=== PATIENT | male | born 1955 | race Caucasian/White ===

== ENCOUNTER 2016-12-12 06:09 | Day surgery (SDC) | payer BC ==
[2016-12-06 08:21] VITALS: BMI 26.9
[~2016-12-12 06:09] MED LIST: DEXAMETHASONE SOD PHOSPHATE 10 MG/ML 1 ML VIAL IV ONE; DEXAMETHASONE SOD PHOSPHATE 4 MG/ML 1 ML VIAL IV ONE; FAMOTIDINE 20 MG/2 ML VIAL IV ONE; HYDROmorphone 1 MG/ML 1 ML SYRINGE IVP PRN; LACTATED RINGERS 1,000 ML IV SCH; LIDOCAINE 1% 20 ML VIAL (10MG/ML) FOR IV START INTRADERMA PRN; MIDAZOLAM 2 MG/2 ML VIAL IV PRN; ONDANSETRON 4 MG/2 ML VIAL IVP ONE; SCOPOLAMINE 1.5MG/72HR PATCH TRANSDERM ONE; ceFAZolin 2 GM in SODIUM CHLORIDE 0.9% 100 ML IVPB ONE
[2016-12-12] MEDS: OXYMETAZOLINE 0.05% NASL SPRAY 1 SPRAY BOTTLE NASAL ONE ×5 (06:43→07:08)
[2016-12-12] MEDS ORDERED: fentaNYL (PF) 50 MCG/ML 2 ML AMP ONE (07:30)
[2016-12-12] MEDS ORDERED: MIDAZOLAM 2 MG/2 ML VIAL ONE (07:30)
[2016-12-12] MEDS ORDERED: PHENYLEPHRINE-0.9% NACL SYG 1 MG/10 ML SYRINGE ONE (07:30)
[2016-12-12] MEDS ORDERED: SUCCINYLCHOLINE CHLORIDE 100 MG/5 ML SYR IV ONE (07:30)
[2016-12-12] MEDS ORDERED: PROPOFOL 10 MG/ML 20 ML VIAL IV ONE (07:30)
[2016-12-12] MEDS ORDERED: LIDOCAINE 1% INJ 10MG/ML (20 ML MDV) ONE (07:30)
[2016-12-12] MEDS ORDERED: DEXAMETHASONE SOD PHOS (MDV) 100 MG/10 ML VIAL ONE (07:30)
[2016-12-12] MEDS ORDERED: FLUORESCEIN STRIPS 1 MG STRIP MISCELLANE ONE (07:37)
[2016-12-12] MEDS ORDERED: EPINEPHrine 1 MG/ML (MDV) 30 ML VIAL TOPICAL ONE (07:37)
[2016-12-12] MEDS ORDERED: BUPIVACAIN-EPI 0.5%-1:200,000 30 ML VIAL SQ ONE ×2 (07:49)
[2016-12-12] MEDS ORDERED: LIDOCAINE 2%-EPI 1:100,000 20 ML VIAL SQ ONE ×2 (07:52)
[2016-12-12] MEDS ORDERED: LACTATED RINGERS 1,000 ML IV ONE (08:52)
[2016-12-12 09:06] VITALS: TEMP 97.2
[2016-12-12 09:12] VITALS: RESP 16
--- NOTE | 2016-12-12 09:13 | P.OP ---
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 Examination in the office revealed a very large obstructive right greater cornu of the larynx which was interfering with his swallowing. No other pathology was noted. Removal of this segment of cartilage is recommended. In addition he complains of chronic sinusitis and a reexamination and therapeutic sinonasal endoscopy was recommended. Repeat throat examination was also recommended. Operative Findings: Patient had an extremely long and obstructive right greater corner of the larynx that underwent resection of the obstructive area through the throat. The patient also had some disease of the frontal sphenoid maxillary sinuses in wider openings were made with removal of diseased tissue. Patient also had some irregularity along the postcricoid space. Biopsy was performed of that area. Description of Procedure: This patient was taken to the operative room and placed in the supine position. A general inhalation anesthetic was administered the patient by mask and subsequently intubated with a cuffed endotracheal tube by the department of anesthesia with a functioning IV line in place. The patient was monitored throughout the entire case by the department of anesthesia. A tooth guard was placed and a Jako laryngoscope was placed into the patient's mouth with care to avoid any trauma to the lips teeth gums and tongue. Mouth was opened tongue was depressed and the entire [place] and hypopharynx was evaluated including the base of tongue vallecula epiglottis [place] vocal cords postcricoid space piriform sinuses lateral pharynx etc. There is a large obstructive protuberance which represented the greater corner of the larynx which was sticking into the throat. We placed a scope on a suspension and made an incision over this cartilaginous protrusion. We resected the cartilaginous protrusion through a small stab incision. The patient tolerated this well. Attention was then paid to the hypopharynx with some irregularity was noted under microscopic evaluation utilizing his sinus microscope. The biopsy the postcricoid space and all instrumentation was removed we did digitally palpate the throat. Attention was then paid to the nose were a standard anesthetization was performed. Reevaluation of the sinuses with endoscopic visualization of his 0 Mcmanus branden scope reveals some closure of the maxillary sinuses which we re-opened with a straight boss. We entered the maxillary sinuses and open them wider and we did remove diseased tissue endoscopically. We opened this with a boss. We then opened the sphenoid sinuses with up-biting boss bilaterally and remove diseased tissue bilaterally from both the bilateral sphenoid and maxillary sinuses with endoscopic visualization. We then identified the nasal frontal duct which was a bit stenotic and we opened that with a Rachel giraffes etc. we entered and explore the frontal sinuses bilaterally. We inserted xerogel bilaterally and we rehydrated xerogel was saline. The patient tolerated this well and a follow-up will be in the office in one week the patient is to contact me if any problems should arise in the interim.
[2016-12-12] MEDS ORDERED: KETOROLAC 30 MG/ML 1 ML VIAL IVP ONE ×2 (09:38→09:41)
[2016-12-12 10:05] VITALS: BP 127/75; PULSE 58
== END 2016-12-12 10:29 | disposition home or self-care (01) ==
LOC: OR 06:09
PROVIDERS: ATTEND Otolaryngology
DX: R13.10 Dysphagia, unspecified (principal); J38.6 Stenosis of larynx; Z87.891 Personal history of nicotine dependence; J32.9 Chronic sinusitis, unspecified; I10 Essential (primary) hypertension; Z79.1 Long term (current) use of non-steroidal anti-inflammatories (NSAID); Z79.899 Other long term (current) drug therapy; Z88.5 Allergy status to narcotic agent; Z88.2 Allergy status to sulfonamides; Z88.8 Allergy status to other drugs, medicaments and biological substances; Z91.02 Food additives allergy status
CPT/HCPCS: 93005; 88305; 88311; 20999; 31535; 31267; 31288; 31276; C1726; J0171; J2250; J1100 ×2; J0690; J2405; J2001; J3010; J1885; J2370; J0330; J2704

== ENCOUNTER 2017-05-22 09:28 | Day surgery (SDC) | payer BC ==
[2017-05-21 08:12] VITALS: BMI 25.6
[~2017-05-22 09:28] MED LIST changes: -DEXAMETHASONE SOD PHOSPHATE 10 MG/ML 1 ML VIAL IV ONE; -DEXAMETHASONE SOD PHOSPHATE 4 MG/ML 1 ML VIAL IV ONE; -FAMOTIDINE 20 MG/2 ML VIAL IV ONE; -HYDROmorphone 1 MG/ML 1 ML SYRINGE IVP PRN; -MIDAZOLAM 2 MG/2 ML VIAL IV PRN; -ONDANSETRON 4 MG/2 ML VIAL IVP ONE; -SCOPOLAMINE 1.5MG/72HR PATCH TRANSDERM ONE; -ceFAZolin 2 GM in SODIUM CHLORIDE 0.9% 100 ML IVPB ONE
[2017-05-22 10:38] VITALS: TEMP 97.8
[2017-05-22] MEDS ORDERED: LIDOCAINE 1% INJ 10MG/ML (20 ML MDV) ONE (11:34)
[2017-05-22] MEDS ORDERED: PROPOFOL 10 MG/ML 20 ML VIAL IV ONE (11:34)
--- NOTE | 2017-05-22 12:01 | P.PCN ---
Date of Procedure: 05/22/17 Procedure(s) Performed: Procedure: Esophagogastroduodenoscopy and biopsy. Preoperative diagnosis: Change in bowel habits and weight loss. Postoperative diagnosis: 1. Small sliding hiatal hernia with no obvious esophagitis or complicated reflux disease. 2. Mild antral gastritis. 3. Multiple biopsies obtained from the duodenum, antrum and esophagus. Preparation sedation: Was provided by anesthesia. Brief clinical history: The patient is a 62-year-old male who is scheduled for this evaluation for the above reasons. The patient has lost around 20 pounds over the last 9 months and is reporting more frequent bowel movements. He had throat surgery within the last year or 2 and was told that he probably has reflux issues. I performed his colonoscopy for screening for colon cancer back in April 2014 because of history of polyps and that showed sigmoid diverticulosis with no other pathology. Procedure: With the patient on his left lateral decubitus position and after informed consent and adequate sedation, the Olympus-GIF 160 video upper endoscope was used and was passed through the cricopharyngeus down the esophagus. GE junction was around 42-43 cm from the incisors and there was a small sliding hiatal hernia. The esophagus did not show any obvious esophagitis or complicated reflux disease. The endoscope was then passed into the stomach which was insufflated with air and inspected in detail including the retroflex view in the cardia. There was some mottling and erythema in the antrum but no ulcers or erosions. Pyloric channel, duodenal bulb, post bulbar area and descending duodenum appeared within normal limits. Because of his symptoms, I obtained biopsies from the duodenum, antrum and esophagus then the endoscope was withdrawn. The patient tolerated the procedure well. Plan: The patient was reassured. Will await pathology results and make further plans based on his course and biopsy results. He will follow up with you as planned and I will be happy to see in the office of his symptoms persist.
[2017-05-22 12:19] VITALS: BP 132/78; PULSE 57; RESP 18
== END 2017-05-22 12:33 | disposition home or self-care (01) ==
LOC: ORWHC2ENDO 09:28
DX: K29.50 Unspecified chronic gastritis without bleeding (principal); K44.9 Diaphragmatic hernia without obstruction or gangrene; Z86.010 Personal history of colon polyps; I10 Essential (primary) hypertension; E78.5 Hyperlipidemia, unspecified; M19.90 Unspecified osteoarthritis, unspecified site; K58.9 Irritable bowel syndrome, unspecified; Z79.899 Other long term (current) drug therapy; Z88.5 Allergy status to narcotic agent; Z91.02 Food additives allergy status
CPT/HCPCS: 88305; 43239; J2001; J2704

== ENCOUNTER → 2017-12-11 | Outpatient (CLI) | payer BC ==
[2017-12-11 17:35] LABS: Anion Gap 7 mmol/L; Blood Urea Nitrogen 21 mg/dL (9-20); Calcium 9.8 mg/dL (8.4-10.2); Carbon Dioxide 28 mmol/L (22-30); Chloride 105 mmol/L (98-107); Glucose 92 mg/dL (74-99); Sodium 140 mmol/L (137-145)
== END | disposition home or self-care (01) ==
LOC: LABWHC1 16:55
PROVIDERS: ATTEND Internal Medicine Interventional Cardiology
DX: I42.9 Cardiomyopathy, unspecified (principal)
CPT/HCPCS: 36415; 80048

== ENCOUNTER → 2018-05-12 | Outpatient (CLI) | payer BC | END | disposition home or self-care (01) | LOC: LABWHC1 16:55 | PROVIDERS: ATTEND Urology | DX: R97.20 Elevated prostate specific antigen [PSA] (principal) | CPT/HCPCS: 36415; 84153 ==

== ENCOUNTER 2018-06-10 08:53 | Day surgery (SDC) | payer BC, OTHER ==
[2018-06-05 10:05] VITALS: BMI 25.0
[~2018-06-10 08:53] MED LIST changes: +DEXAMETHASONE SOD PHOSPHATE 10 MG/ML 1 ML VIAL IV ONE; +HEPARIN SODIUM,PORCINE 5,000 UNIT/ML 1 ML VIAL SQ ONE; -LIDOCAINE 1% 20 ML VIAL (10MG/ML) FOR IV START INTRADERMA PRN; +MIDAZOLAM (PF) 2 MG/2 ML VIAL IV PRN; +ONDANSETRON 4 MG/2 ML VIAL IVP ONE; +SCOPOLAMINE 1.5MG/72HR PATCH TRANSDERM ONE; +ceFAZolin IN SWFI 2 GM/20 ML SYRINGE IVP ONE; +fentaNYL (PF) 50 MCG/ML 2 ML AMP IV PRN
[2018-06-10] MEDS ORDERED: LIDOCAINE 1% 20 ML VIAL (10MG/ML) FOR IV START INTRADERMA ONE (09:51)
[2018-06-10] MEDS ORDERED: ONDANSETRON 4 MG/2 ML VIAL IVP ONE (09:51)
[2018-06-10] MEDS ORDERED: LACTATED RINGERS 1,000 ML IV ONE ×2 (09:58→11:50)
[2018-06-10] MEDS ORDERED: MIDAZOLAM 2 MG/2 ML VIAL IVP ONE (10:35)
[2018-06-10] MEDS ORDERED: fentaNYL (PF) 50 MCG/ML 2 ML AMP IVP ONE (10:35)
--- NOTE | 2018-06-10 10:48 | P.GSHP ---
History of Present Illness H&P Date: 06/10/18 Chief Complaint: Right Inguinal hernia This is a 63-year-old male who presents today for laparoscopic robotic-assisted repair of right inguinal hernia. Patient's complaints of a tender mass is right groin. Past Medical History Past Medical History: Hyperlipidemia, Hypertension, Osteoarthritis (OA) Additional Past Medical History / Comment(s): RIGHT INGUINAL HERNIA, HX IBS, migraines, hx elevated PSA, History of Any Multi-Drug Resistant Organisms: None Reported Past Surgical History: Heart Catheterization, Hernia Repair, Tonsillectomy Additional Past Surgical History / Comment(s): sinus surgery, surgical repair rt idex finger, cartilage removed from throat Past Anesthesia/Blood Transfusion Reactions: Motion Sickness Smoking Status: Former smoker - Past Family History Mother Family Medical History: Cancer Additional Family Medical History / Comment(s): skin Medications and Allergies Home Medications Medication Instructions Recorded Confirmed Type Aspirin 81 mg PO DAILY 04/14/14 06/10/18 History Ibuprofen [Motrin] 800 mg PO Q8HR PRN 04/14/14 06/10/18 History Metaxalone [Skelaxin] 800 mg PO TID PRN 04/14/14 06/10/18 History Multivitamins, Thera [Multivitamin 1 tab PO DAILY 12/06/16 06/10/18 History (formulary)] Atorvastatin [Lipitor] 10 mg PO HS 06/05/18 06/10/18 History Carvedilol [Coreg] 3.125 mg PO BID 06/05/18 06/10/18 History Losartan Potassium 50 mg PO HS 06/05/18 06/10/18 History Allergies Allergy/AdvReac Type Severity Reaction Status Date / Time codeine Allergy Rash/Hives, Verified 06/10/18 09:55 ITCHING red (food color) Allergy RAPID Verified 06/10/18 09:55 HEART RATE,HIVES Surgical - Exam Vital Signs Temp Pulse Resp BP Pulse Ox 97.9 F 57 L 16 152/83 97 06/10/18 09:55 06/10/18 09:55 06/10/18 09:55 06/10/18 09:55 06/10/18 09:55 - General well developed, well nourished, no distress - Eyes PERRL - ENT normal pinna - Neck no masses - Respiratory normal expansion - Cardiovascular Rhythm: regular - Abdomen Abdomen: soft, non tender Hernia: reducible (Reducible right inguinal hernia) Assessment and Plan Assessment: Right inguinal hernia. We'll perform laparoscopic robotic-assisted repair.
[2018-06-10] MEDS ORDERED: GLYCOPYRROLATE 0.2 MG/ML 2 ML VIAL ONE (10:57)
[2018-06-10] MEDS ORDERED: MIDAZOLAM 2 MG/2 ML VIAL ONE (10:57)
[2018-06-10] MEDS ORDERED: NEOSTIGMINE 1 MG/ML 10 ML VIAL ONE (10:57)
[2018-06-10] MEDS ORDERED: fentaNYL (PF) 50 MCG/ML 2 ML AMP ONE (10:57)
[2018-06-10] MEDS ORDERED: PROPOFOL 10 MG/ML 20 ML VIAL IV ONE (10:57)
[2018-06-10] MEDS ORDERED: SUCCINYLCHOLINE CHLORIDE 100 MG/5 ML SYR IV ONE (10:57)
[2018-06-10] MEDS ORDERED: ROPIVACAINE 5 MG/ML 30 ML VIAL ONE (10:57)
[2018-06-10] MEDS ORDERED: ROCURONIUM BROMIDE 10 MG/ML 10 ML VIAL IV ONE (10:57)
[2018-06-10] MEDS ORDERED: HYDROmorphone (PF) 1 MG/ML ONE (10:57)
[2018-06-10] MEDS ORDERED: METOPROLOL TARTRATE 5 MG/5 ML VIAL IVP ONE (10:57)
[2018-06-10] MEDS ORDERED: LIDOCAINE 1% INJ 10MG/ML (20 ML MDV) ONE (10:57)
[2018-06-10] MEDS ORDERED: KETOROLAC 30 MG/ML 1 ML VIAL ONE (10:57)
[2018-06-10] MEDS ORDERED: BUPIVACAINE-EPI 0.5%-1:200,000 10 ML VIAL SQ ONE (11:26)
[2018-06-10 12:14] VITALS: TEMP 97.8
--- NOTE | 2018-06-10 12:14 | P.ONQ ---
Anesthesiology Proc Note - PNB - Peripheral Nerve Block Performed Bilateral Transversus Abdominis Single Time Out Performed: Yes Procedure Start Time: 10:35 Indication: Acute Post-Operative Pain Specifically requested for management of pain by DrChang: Eben He Sedation Type: Sedate with meaningful contact maintained Preparation: Sterile Prep Position: Supine Catheter: None Needle Types: Other (see comment) (Pajunk) Needle Size: 100mm (4") Needle Gauge: 21 Technique: Ultrasound Injectate: Other (see comment) (1% lidocaine/0.25% ropivacaine 30 mL per side) Adjunct: Epinephrine (see comment for dilution ratio) (1:200,000) Blood Aspirated: No Pain Paresthesia on Injection Noted: No Resistance on Injection: Normal Events: Uneventful and Well Tolerated
[2018-06-10 14:21] VITALS: RESP 16
[2018-06-10 14:43] VITALS: BP 125/78; PULSE 70
--- NOTE | 2018-06-20 10:30 | P.OP ---
Date of Procedure: 06/10/18 Preoperative Diagnosis: Right inguinal hernia Postoperative Diagnosis: Right inguinal hernia Procedure(s) Performed: Laparoscopic robotic-assisted repair of right inguinal hernia Excision of right cord lipoma Anesthesia: OPAL Surgeon: Eben He Estimated Blood Loss (ml): 5 Pathology: other (Cord lipoma) Condition: stable Disposition: PACU Description of Procedure: The patient's placed on the operating table in the supine position. The patient received general anesthesia. The patient's abdomen was prepped and draped in usual sterile fashion. The skin was anesthetized 1% local Xylocaine at the incision sites. Using an 11 blade a skin incision was made at the umbilicus. The fascia was grasped with a [place] and then the peritoneal cavity was entered with the Veress needle. Position of the Veress needle was confirmed with a positive drop test. After adequate insufflation a 5 mm trocar was placed into the peritoneal cavity. The Laparoscope was placed the peritoneal cavity. And a robotic 8 mm trocar was placed in the right lateral position and then another 8 mm robotic trochars placed in the left lateral position. The original 5 mm trocar was exchanged for a 12 mm trocar. The patient was placed in reverse Trendelenburg and then the patient was docked to the robot. Next the peritoneum over top of the hernia was incised and then using blunt and sharp dissection and electrocautery the hernia sac was dissected free from the floor of the inguinal canal. The hernia sac was completely reduced into the peritoneal cavity. The cord lipoma was dissected free and sent to pathology And then using the Pro paste up worker mesh the hernia was repaired. The peritoneum was then sutured with 20V lock suture. The patient was then undocked the robot. The needle was withdrawn from the peritoneal cavity. The umbilical trocar site was closed with 0 Ethibond suture. The skin was closed interrupted 3-0 Monocryl suture. Dermabond dressing was applied. Patient was sent to recovery in stable condition.
== END 2018-06-10 14:53 | disposition home or self-care (01) ==
LOC: OR 08:53
PROVIDERS: ATTEND Surgery
DX: K40.90 Unilateral inguinal hernia, without obstruction or gangrene, not specified as recurrent (principal); D17.6 Benign lipomatous neoplasm of spermatic cord; E78.5 Hyperlipidemia, unspecified; I10 Essential (primary) hypertension; M19.90 Unspecified osteoarthritis, unspecified site; Z87.19 Personal history of other diseases of the digestive system; Z87.891 Personal history of nicotine dependence; Z80.8 Family history of malignant neoplasm of other organs or systems; Z79.82 Long term (current) use of aspirin; Z79.899 Other long term (current) drug therapy; Z88.5 Allergy status to narcotic agent; Z91.048 Other nonmedicinal substance allergy status; Z79.1 Long term (current) use of non-steroidal anti-inflammatories (NSAID)
CPT/HCPCS: 49650; 55559; S2900; 64488; 88304

== ENCOUNTER 2018-06-10 19:43 | Inpatient (IN) | payer BC, OTHER ==
[2018-06-10] MEDS ORDERED: SODIUM CHLORIDE 0.9% 1,000 ML IV STA (19:46)
[2018-06-10] MEDS ORDERED: SODIUM CHLORIDE 0.9% 500 ML 500 ML IV STA (19:46)
--- NOTE | 2018-06-10 19:50 | ED ---
Syncope HPI - General Stated Complaint: syncope Time Seen by Provider: 06/10/18 19:49 Source: RN notes reviewed, old records reviewed - History of Present Illness Initial Comments: This is a 63-year-old male the ER status post syncopal event. Patient did have surgery earlier today for hernia. Patient states he does feel improved after surgery but he hasn't been feeling too well since he got home. He is having abdominal pain no weakness. No nausea vomiting no chest pain or shortness of breath. No headaches MD Complaint: loss of consciousness -: hour(s) Prodromal Symptoms: none -: minutes(s) Witnessed: yes - by bystander Injuries Sustained Associated with Event: None Current Symptoms: back to baseline, lightheaded, weakness History: previous syncopal episode Context: at rest - Related Data Home Medications Medication Instructions Recorded Confirmed Aspirin 81 mg PO DAILY 04/14/14 06/10/18 Ibuprofen [Motrin] 800 mg PO Q8HR PRN 04/14/14 06/10/18 Metaxalone [Skelaxin] 800 mg PO TID PRN 04/14/14 06/10/18 Multivitamins, Thera [Multivitamin 1 tab PO DAILY 12/06/16 06/10/18 (formulary)] Atorvastatin [Lipitor] 10 mg PO HS 06/05/18 06/10/18 Carvedilol [Coreg] 3.125 mg PO BID 06/05/18 06/10/18 Losartan Potassium 50 mg PO HS 06/05/18 06/10/18 Potassium Chloride ER [K-Dur 20] 20 meq PO DAILY 06/10/18 06/10/18 Sildenafil [Revatio] 20 mg PO DAILY 06/10/18 06/10/18 valACYclovir [Valtrex] 500 mg PO DAILY 06/10/18 06/10/18 Allergies Allergy/AdvReac Type Severity Reaction Status Date / Time codeine Allergy Rash/Hives, Verified 06/10/18 20:36 ITCHING red (food color) Allergy RAPID Verified 06/10/18 20:36 HEART RATE,HIVES Review of Systems ROS Statement: Those systems with pertinent positive or pertinent negative responses have been documented in the HPI. ROS Other: All systems not noted in ROS Statement are negative. Past Medical History Past Medical History: Hyperlipidemia, Hypertension, Osteoarthritis (OA) Additional Past Medical History / Comment(s): RIGHT INGUINAL HERNIA, HX IBS, migraines, hx elevated PSA, History of Any Multi-Drug Resistant Organisms: None Reported Past Surgical History: Heart Catheterization, Hernia Repair, Tonsillectomy Additional Past Surgical History / Comment(s): sinus surgery, surgical repair rt idex finger, cartilage removed from throat Past Anesthesia/Blood Transfusion Reactions: Motion Sickness Smoking Status: Former smoker - Past Family History Mother Family Medical History: Cancer Additional Family Medical History / Comment(s): skin General Exam General appearance: alert, in no apparent distress Head exam: Present: atraumatic, normocephalic, normal inspection Eye exam: Present: normal appearance, PERRL, EOMI. Absent: scleral icterus, conjunctival injection, periorbital swelling ENT exam: Present: normal exam, mucous membranes moist Neck exam: Present: normal inspection. Absent: tenderness, meningismus, lymphadenopathy Respiratory exam: Present: normal lung sounds bilaterally. Absent: respiratory distress, wheezes, rales, rhonchi, stridor Cardiovascular Exam: Present: regular rate, normal rhythm, normal heart sounds. Absent: systolic murmur, diastolic murmur, rubs, gallop, clicks GI/Abdominal exam: Present: soft, normal bowel sounds. Absent: distended, tenderness, guarding, rebound, rigid Extremities exam: Present: normal inspection, full ROM, normal capillary refill. Absent: tenderness, pedal edema, joint swelling, calf tenderness Back exam: Present: normal inspection Neurological exam: Present: alert, oriented X3, CN II-XII intact Psychiatric exam: Present: normal affect, normal mood Skin exam: Present: warm, dry, intact, normal color. Absent: rash Course Vital Signs 06/10/18 06/10/18 20:20 20:38 Temperature 98.3 F Pulse Rate 58 L Respiratory 14 Rate Blood Pressure 98/68 114/67 O2 Sat by Pulse 98 Oximetry - Reevaluation(s) Reevaluation #1: 06/10/18 22:57 Medical record and prior surgery history is reviewed Reevaluation #2: 06/10/18 22:57 Patient is relatively asymptomatic throughout ER stay, does not to weakness and abdominal pain - Consultations Consultation #1: Spoke with Dr. Venegas who is agreeable for admission EKG Findings - EKG Comments: EKG Findings:: EKG shows sinus bradycardia rate of 56, NH 188, QRS 02, QTc 416 Medical Decision Making - Medical Decision Making 63 male the ER for evaluation patient presents today for evaluation regards to syncopal event patient did have hernia surgery today. Patient is syncopal event tonight, no recurrent syncope here. No headache chest pain shortness of breath or abdominal pain. Patient be admitted for monitoring of arrhythmia secondary to history of heart disease - Lab Data Result diagrams: 06/10/18 20:01 06/10/18 20:01 Lab Results 06/10/18 06/10/18 06/10/18 Range/Units 20:01 20:01 20:01 WBC 9.3 (3.8-10.6) k/uL RBC 4.06 L (4.30-5.90) m/uL Hgb 12.2 L (13.0-17.5) gm/dL Hct 36.4 L (39.0-53.0) % MCV 89.7 (80.0-100.0) fL MCH 30.1 (25.0-35.0) pg MCHC 33.5 (31.0-37.0) g/dL RDW 12.2 (11.5-15.5) % Plt Count 164 (150-450) k/uL Neutrophils % 87 % Lymphocytes % 7 % Monocytes % 5 % Eosinophils % 1 % Basophils % 0 % Neutrophils # 8.1 H (1.3-7.7) k/uL Lymphocytes # 0.7 L (1.0-4.8) k/uL Monocytes # 0.4 (0-1.0) k/uL Eosinophils # 0.1 (0-0.7) k/uL Basophils # 0.0 (0-0.2) k/uL PT 11.3 (9.0-12.0) sec INR 1.1 (<1.2) APTT 22.4 (22.0-30.0) sec D-Dimer 0.60 H (<0.60) mg/L FEU Sodium 138 (137-145) mmol/L Potassium 4.7 (3.5-5.1) mmol/L Chloride 107 (98-107) mmol/L Carbon Dioxide 25 (22-30) mmol/L Anion Gap 6 mmol/L BUN 18 (9-20) mg/dL Creatinine 0.72 (0.66-1.25) mg/dL Est GFR (CKD-EPI)AfAm >90 (>60 ml/min/1.73 sqM) Est GFR (CKD-EPI)NonAf >90 (>60 ml/min/1.73 sqM) Glucose 156 H (74-99) mg/dL Calcium 8.4 (8.4-10.2) mg/dL Phosphorus 3.5 (2.5-4.5) mg/dL Magnesium 1.7 (1.6-2.3) mg/dL Total Bilirubin 0.8 (0.2-1.3) mg/dL AST 19 (17-59) U/L ALT 40 (21-72) U/L Alkaline Phosphatase 31 L (38-126) U/L Troponin I (0.000-0.034) ng/mL NT-Pro-B Natriuret Pep pg/mL Total Protein 5.5 L (6.3-8.2) g/dL Albumin 3.2 L (3.5-5.0) g/dL Triglycerides (<150) mg/dL Cholesterol (<200) mg/dL LDL Cholesterol, Calc (0-99) mg/dL HDL Cholesterol (40-60) mg/dL 06/10/18 06/10/18 06/10/18 Range/Units 20:01 20:01 20:01 WBC (3.8-10.6) k/uL RBC (4.30-5.90) m/uL Hgb (13.0-17.5) gm/dL Hct (39.0-53.0) % MCV (80.0-100.0) fL MCH (25.0-35.0) pg MCHC (31.0-37.0) g/dL RDW (11.5-15.5) % Plt Count (150-450) k/uL Neutrophils % % Lymphocytes % % Monocytes % % Eosinophils % % Basophils % % Neutrophils # (1.3-7.7) k/uL Lymphocytes # (1.0-4.8) k/uL Monocytes # (0-1.0) k/uL Eosinophils # (0-0.7) k/uL Basophils # (0-0.2) k/uL PT (9.0-12.0) sec INR (<1.2) APTT (22.0-30.0) sec D-Dimer (<0.60) mg/L FEU Sodium (137-145) mmol/L Potassium (3.5-5.1) mmol/L Chloride (98-107) mmol/L Carbon Dioxide (22-30) mmol/L Anion Gap mmol/L BUN (9-20) mg/dL Creatinine (0.66-1.25) mg/dL Est GFR (CKD-EPI)AfAm (>60 ml/min/1.73 sqM) Est GFR (CKD-EPI)NonAf (>60 ml/min/1.73 sqM) Glucose (74-99) mg/dL Calcium (8.4-10.2) mg/dL Phosphorus (2.5-4.5) mg/dL Magnesium (1.6-2.3) mg/dL Total Bilirubin (0.2-1.3) mg/dL AST (17-59) U/L ALT (21-72) U/L Alkaline Phosphatase (38-126) U/L Troponin I <0.012 (0.000-0.034) ng/mL NT-Pro-B Natriuret Pep 44 pg/mL Total Protein (6.3-8.2) g/dL Albumin (3.5-5.0) g/dL Triglycerides 38 (<150) mg/dL Cholesterol 109 (<200) mg/dL LDL Cholesterol, Calc 71 (0-99) mg/dL HDL Cholesterol 30 L (40-60) mg/dL - Radiology Data Radiology results: report reviewed (CTA chest is negative for acute disease), image reviewed Disposition Clinical Impression: Vasovagal syncope, Syncope, Postoperative pain Disposition: ADMITTED IP TO THIS HOSP Condition: Fair Is patient prescribed a controlled substance at d/c from ED?: No
[2018-06-10 20:17] LABS: Basophils % (A) 0 %; Eosinophils # (A) 0.1 k/uL (0-0.7); Eosinophils % (A) 1 %; HCT 36.4 % (39.0-53.0); HGB 12.2 gm/dL (13.0-17.5); Lymphocytes # (A) 0.7 k/uL (1.0-4.8); Lymphocytes % (A) 7 %; MCH 30.1 pg (25.0-35.0); MCHC 33.5 g/dL (31.0-37.0); MCV 89.7 fL (80.0-100.0); Mean Platelet Volume 9.1; Monocytes # (A) 0.4 k/uL (0-1.0); Monocytes % (A) 5 %; Neutrophils # (A) 8.1 k/uL (1.3-7.7); Neutrophils % (A) 87 %; Platelet Count 164 k/uL (150-450); RBC 4.06 m/uL (4.30-5.90); RDW 12.2 % (11.5-15.5); WBC 9.3 k/uL (3.8-10.6)
[2018-06-10 20:30] LABS: ALT 40 U/L (21-72); AST 19 U/L (17-59); Albumin 3.2 g/dL (3.5-5.0); Alkaline Phosphatase 31 U/L (38-126); Anion Gap 6 mmol/L; Blood Urea Nitrogen 18 mg/dL (9-20); Calcium 8.4 mg/dL (8.4-10.2); Carbon Dioxide 25 mmol/L (22-30); Chloride 107 mmol/L (98-107); Glucose 156 mg/dL (74-99); Magnesium 1.7 mg/dL (1.6-2.3); Phosphorus 3.5 mg/dL (2.5-4.5); Potassium 4.7 mmol/L (3.5-5.1); Sodium 138 mmol/L (137-145); Total Bilirubin 0.8 mg/dL (0.2-1.3); Total Protein 5.5 g/dL (6.3-8.2)
[2018-06-10 20:31] LABS: INR 1.1 (<1.2); Partial Thromboplastin Time 22.4 sec (22.0-30.0); Prothrombin Time 11.3 sec (9.0-12.0)
[2018-06-10 20:41] LABS: D-Dimer 0.6 mg/L FEU (<0.60)
--- NOTE | 2018-06-10 21:45 | CT ---
EXAMINATION TYPE: CT angio chest DATE OF EXAM: 06/10/2018 9:30 PM COMPARISON: None HISTORY: Hernia repair surgery today. Patient had episode of unresponsiveness after returning to his home. CT DLP: 352.3 mGycm Automated exposure control for dose reduction was used. CONTRAST: CTA scan of the thorax is performed with IV Contrast, patient injected with 100 mL of Isovue 370, pul monary embolism protocol. There are 3-D post processed images.. FINDINGS: There is patchy atelectasis in the posterior lung mason. There is no pericardial effusion. There is no pleural effusion. There is moderate fluid in the abdomen. There is pneumoperitoneum consistent wit h hernia repair surgery today. There is normal contrast opacification of the pulmonary arteries. I see no filling defect. There is n o mediastinal adenopathy. Thoracic aorta shows no aneurysm or dissection. There are no hilar masses. IMPRESSION: ATELECTASIS AT THE LUNG BASES. NO EVIDENCE OF PULMONARY EMBOLISM. MODERATE FREE FLUID IN THE ABDOMEN WELL PNEUMOPERITONEUM.
[2018-06-10] MEDS ORDERED: NITROGLYCERIN SL TABS 0.4 MG TAB SUBLINGUAL PRN (22:21)
[2018-06-10 22:53] LABS: Cholesterol 109 mg/dL (<200); HDL Cholesterol 30 mg/dL (40-60); LDL Cholesterol,Calculated 71 mg/dL (0-99); Triglycerides 38 mg/dL (<150)
[2018-06-10] MEDS ORDERED: MORPHINE SULFATE 2 MG/ML SYRINGE IVP STA (23:25)
[2018-06-10] MEDS ORDERED: ONDANSETRON 4 MG/2 ML VIAL IVP STA (23:45)
[2018-06-11] MEDS: SODIUM CHLORIDE 0.9% 1,000 ML IV SCH ×3 (00:45→20:55)
[2018-06-11] MEDS ORDERED: MORPHINE SULFATE 2 MG/ML SYRINGE ONE (03:20)
[2018-06-11] MEDS ORDERED: MORPHINE SULFATE 2 MG/ML SYRINGE IVP PRN (03:20)
[2018-06-11] MEDS: HYDROcodone/APAP 7.5-325MG 1 EACH TAB PO PRN ×3 (10:31→20:01)
--- NOTE | 2018-06-11 11:33 | P.GSCN ---
History of Present Illness Consult date: 06/11/18 Reason for Consult: post op Requesting physician: Cali Elizabeth History of present illness: CHIEF COMPLAINT: Syncope HISTORY OF PRESENT ILLNESS: 63-year-old male who underwent repair of right inguinal hernia on 06/10/2018. Patient returned back to the hospital secondary to episode of syncope at home. General surgery was consulted for further evaluation. Patient states he was feeling well yesterday after surgery and when he got home he was sitting in chair relaxing. He reports that his told him about an hour later, his eyes rolled back in his head and she was not able to wake the patient up. Apparently, he was out for around 1 minute. Patient states he had ate when he first got home and was feeling okay. He did not take any pain medications when he got home yesterday. Denied nausea or vomiting. He reports feeling dizzy yesterday. He is feeling better this morning overall. PAST MEDICAL HISTORY: See list. PAST SURGICAL HISTORY: See list. MEDICATIONS: See list. ALLERGIES: See list. SOCIAL HISTORY: No illicit drug use. REVIEW OF SYSTEMS: CONSTITUTIONAL: Denies fever or chills. HEENT: Denies blurred vision, vision changes, or eye pain. Denies hemoptysis ENDOCRINE: Denies heat or cold intolerance. CARDIOVASCULAR: Denies chest pain or pressure. RESPIRATORY: No shortness of breath. GASTROINTESTINAL: Reports abdominal pain near surgical incision sites. Denies nausea or vomiting. NEURO: Denies history of seizures. PSYCH: No depression or suicidal ideation HEMATOLOGIC: Denies bleeding disorders. LYMPHATIC: The patient denies any lumps and bumps around the neck. GENITOURINARY: Denies any blood in urine or increased urinary frequency. MUSCULOSKELETAL: Denies myalgias. Denies joint swelling. Denies decreased range of motion beyond patients baseline. SKIN: Denies pruitis. Denies rash. PHYSICAL EXAM: VITAL SIGNS: Currently stable. GENERAL: Well-developed in no acute distress. HEENT: No sclera icterus. Extraocular movements grossly intact. Moist buccal mucosa. Head is atraumatic, normocephalic. Hears conversational speech. No nasal drainage. NECK: Supple without lymphadenopathy. CHEST: Non-labored respirations and equal bilateral excursions. CARDIOVASCULAR: Regular rate with regular rhythm. Palpable 2+ radial pulses. ABDOMEN: Soft. Nondistended. Surgical incision sites clean and dry without drainage. MUSCULOSKELETAL: No clubbing, cyanosis or edema. NEUROLOGIC: No focal or lateralizing signs. Cranial nerves II through XII grossly intact. PSYCH: Appropriate affect. Alert and oriented to person, place and time. SKIN: Well perfused. Good skin turgor. ASSESSMENT: 1. Syncope 2. S/P outpatient right inguinal hernia repair, POD #1 PLAN: From a surgical standpoint, patient is stable. He is doing well this morning. He may begin heart healthy diet. Incisions look well without signs of complic ations. [place] for pain management. Further workup of syncope per primary service. Nurse practitioner note has been reviewed by physician. Signing provider agrees with the documented findings, assessment, and plan of care. Past Medical History Past Medical History: Hyperlipidemia, Hypertension, Osteoarthritis (OA) Additional Past Medical History / Comment(s): RIGHT INGUINAL HERNIA, HX IBS, migraines, hx elevated PSA, History of Any Multi-Drug Resistant Organisms: None Reported Past Surgical History: Heart Catheterization, Hernia Repair, Tonsillectomy Additional Past Surgical History / Comment(s): sinus surgery, surgical repair rt idex finger, cartilage removed from throat Past Anesthesia/Blood Transfusion Reactions: Motion Sickness Past Psychological History: Anxiety Smoking Status: Former smoker Past Alcohol Use History: None Reported Additional Past Alcohol Use History / Comment(s): QUIT SMOKING AT AGE 25 STARTED AT AGE 13. 1 PPD. Past Drug Use History: None Reported - Past Family History Mother Family Medical History: Cancer Additional Family Medical History / Comment(s): skin Medications and Allergies Home Medications Medication Instructions Recorded Confirmed Type Aspirin 81 mg PO DAILY 04/14/14 06/10/18 History Ibuprofen [Motrin] 800 mg PO Q8HR PRN 04/14/14 06/10/18 History Metaxalone [Skelaxin] 800 mg PO TID PRN 04/14/14 06/10/18 History Multivitamins, Thera [Multivitamin 1 tab PO DAILY 12/06/16 06/10/18 History (formulary)] Atorvastatin [Lipitor] 10 mg PO HS 06/05/18 06/10/18 History Carvedilol [Coreg] 3.125 mg PO BID 06/05/18 06/10/18 History Losartan Potassium 50 mg PO HS 06/05/18 06/10/18 History Potassium Chloride ER [K-Dur 20] 20 meq PO DAILY 06/10/18 06/10/18 History Sildenafil [Revatio] 20 mg PO DAILY 06/10/18 06/10/18 History valACYclovir [Valtrex] 500 mg PO DAILY 06/10/18 06/10/18 History Allergies Allergy/AdvReac Type Severity Reaction Status Date / Time codeine Allergy Rash/Hives, Verified 06/10/18 20:36 ITCHING red (food color) Allergy RAPID Verified 06/10/18 20:36 HEART RATE,HIVES Surgical - Exam Vital Signs Temp Pulse Resp BP Pulse Ox 98.3 F 58 L 14 98/68 98 06/10/18 20:20 06/10/18 20:20 06/10/18 20:20 06/10/18 20:20 06/10/18 20:20 Results - Labs 06/10/18 20:01 06/10/18 20:01 Abnormal Lab Results - Last 24 Hours (Table) 06/10/18 06/10/18 06/10/18 Range/Units 20:01 20:01 20:01 RBC 4.06 L (4.30-5.90) m/uL Hgb 12.2 L (13.0-17.5) gm/dL Hct 36.4 L (39.0-53.0) % Neutrophils # 8.1 H (1.3-7.7) k/uL Lymphocytes # 0.7 L (1.0-4.8) k/uL D-Dimer 0.60 H (<0.60) mg/L FEU Glucose 156 H (74-99) mg/dL Alkaline Phosphatase 31 L (38-126) U/L Total Protein 5.5 L (6.3-8.2) g/dL Albumin 3.2 L (3.5-5.0) g/dL HDL Cholesterol (40-60) mg/dL 06/10/18 Range/Units 20:01 RBC (4.30-5.90) m/uL Hgb (13.0-17.5) gm/dL Hct (39.0-53.0) % Neutrophils # (1.3-7.7) k/uL Lymphocytes # (1.0-4.8) k/uL D-Dimer (<0.60) mg/L FEU Glucose (74-99) mg/dL Alkaline Phosphatase (38-126) U/L Total Protein (6.3-8.2) g/dL Albumin (3.5-5.0) g/dL HDL Cholesterol 30 L (40-60) mg/dL Diabetes panel 06/10/18 06/10/18 Range/Units 20:01 20:01 Sodium 138 (137-145) mmol/L Potassium 4.7 (3.5-5.1) mmol/L Chloride 107 (98-107) mmol/L Carbon Dioxide 25 (22-30) mmol/L BUN 18 (9-20) mg/dL Creatinine 0.72 (0.66-1.25) mg/dL Glucose 156 H (74-99) mg/dL Calcium 8.4 (8.4-10.2) mg/dL AST 19 (17-59) U/L ALT 40 (21-72) U/L Alkaline Phosphatase 31 L (38-126) U/L Total Protein 5.5 L (6.3-8.2) g/dL Albumin 3.2 L (3.5-5.0) g/dL Triglycerides 38 (<150) mg/dL HDL Cholesterol 30 L (40-60) mg/dL Calcium panel 06/10/18 Range/Units 20:01 Calcium 8.4 (8.4-10.2) mg/dL Phosphorus 3.5 (2.5-4.5) mg/dL Albumin 3.2 L (3.5-5.0) g/dL Pituitary panel 06/10/18 Range/Units 20:01 Sodium 138 (137-145) mmol/L Potassium 4.7 (3.5-5.1) mmol/L Chloride 107 (98-107) mmol/L Carbon Dioxide 25 (22-30) mmol/L BUN 18 (9-20) mg/dL Creatinine 0.72 (0.66-1.25) mg/dL Glucose 156 H (74-99) mg/dL Calcium 8.4 (8.4-10.2) mg/dL Adrenal panel 06/10/18 Range/Units 20:01 Sodium 138 (137-145) mmol/L Potassium 4.7 (3.5-5.1) mmol/L Chloride 107 (98-107) mmol/L Carbon Dioxide 25 (22-30) mmol/L BUN 18 (9-20) mg/dL Creatinine 0.72 (0.66-1.25) mg/dL Glucose 156 H (74-99) mg/dL Calcium 8.4 (8.4-10.2) mg/dL Total Bilirubin 0.8 (0.2-1.3) mg/dL AST 19 (17-59) U/L ALT 40 (21-72) U/L Alkaline Phosphatase 31 L (38-126) U/L Total Protein 5.5 L (6.3-8.2) g/dL Albumin 3.2 L (3.5-5.0) g/dL
[2018-06-11] MEDS ORDERED: ONDANSETRON 4 MG/2 ML VIAL IVP PRN (12:15)
--- NOTE | 2018-06-11 15:32 | P.CRDCN ---
History of Present Illness Consult date: 06/11/18 Chief complaint: Syncope History of present illness: HPI and plan: This is a [63]-year-old [male] who presents in the emergency department for s yncope. Patient had hernia repair surgery yesterday 06/10/2018 went home and was sitting in his lazy boy chair waiting for dinner. His exited the room and when she came back and he was unresponsive, with his eyes rolled back in his head. Patient does not remember the episode. Patient currently alert and oriented, able to respond appropriately, no current neurological deficits. Patient S/P hernia repair, robitically. The patient follows with Dr. SYED Bentley for cardiology, pt states he has "reduced heart function". Pt states he was advised by cardiology to discontinue alcohol use, pt compliant. Former-smoker. Pt has no current c/o of pain or discomfort at time of exam, comfortable and in no distress. Current vital signs stable, 96% on room air, afebrile. Significant medical includes: Status post right inguinal hernia repair, hypertension, hyperlipidemia, IBS, migraines, tonsillectomy, motion sickness, osteoarthritis, former smoker. EKG shows SB, pac's noted, at a rate of 56 beats per minute. Troponins negative x 2. Chest x-ray - none currently. CT of chest negative for PE. Positive for atelectasis. Positive for surgical changes, otherwise negative. Significant laboratory values include: Hemoglobin 12.2, hematocrit 36.4. D- dimer slightly elevated 0.60. Albumin and protein levels decreased. Total cholesterol 109, LDL 71, HDL 30. Triglycerides, 38. Troponins negative x 2. Most recent echo dated 02/23/2018 indicates [EF 50%, normal LV size with borderline normal function. Normal diastolic function. There is top normal LV wall thickness. Mild MR. Mild TR. Normal PA pressures. ]. Most recent stress testing dated 05/10/2014 ejection fraction of 55-60%. Normal myocardial perfusion imaging. Negative stress test with good exercise capacity. Hypertensive response to exercise noted. Most recent carotid ultrasound dated 07/14/2017. ICA stenosis less than 49% bilaterally. Right ICA ratio 1.0, Left ICA ratio 0.7. Antegrade vertebral flow noted bilaterally. 1. Sycnope. 2. S/P hernia repair, POD #1 Plan: Patient currently stable from cardiology standpoint. Continue current medication/medical regime. Continue with cautious IV hydration and blood pressure monitoring. Resume all home medications. Follow along with surgery. Encouraged IS use and to ambulation with assistance. Will follow. Review of Systems At the time of my exam: CONSTITUTIONAL: [Denies fever. Denies chills.] EYES: Denies blurred vision. [Denies vision changes. Denies eye pain.] EARS, NOSE, MOUTH & THROAT: [Denies headache. Denies sore throat. Denies ear pain.] CARDIOVASCULAR: [Denies chest pain. Denies shortness of breath. Denies orthop uma. Denies PND. Denies palpitations.] RESPIRATORY: [Denies cough. Denies shortness of breath. ] GASTROINTESTINAL: [Complains of abdominal pain. Denies diarrhea. Denies constipation. Denies nausea. Denies vomiting.] MUSCULOSKELETAL: [Complains of myalgias.] INTEGUMENTARY: [Denies pruitis. Denies rash. Complains of incisional site pain] NEUROLOGIC: [Denies numbness. Denies tingling. Denies weakness.] PSYCHIATRIC: [Denies anxiety. Denies depression.] ENDOCRINE: [Denies fatigue. Denies weight change. Denies polydipsia. Denies polyurina.] GENITOURINARY:[ Denies burning, hematuria or urgency with micturation.] HEMATOLOGIC: [Denies history of anemia. Denies bleeding.] Past Medical History Past Medical History: Hyperlipidemia, Hypertension, Osteoarthritis (OA) Additional Past Medical History / Comment(s): RIGHT INGUINAL HERNIA, HX IBS, migraines, hx elevated PSA, History of Any Multi-Drug Resistant Organisms: None Reported Past Surgical History: Heart Catheterization, Hernia Repair, Tonsillectomy Additional Past Surgical History / Comment(s): sinus surgery, surgical repair rt idex finger, cartilage removed from throat Past Anesthesia/Blood Transfusion Reactions: Motion Sickness Past Psychological History: Anxiety Smoking Status: Former smoker Past Alcohol Use History: None Reported Additional Past Alcohol Use History / Comment(s): QUIT SMOKING AT AGE 25 STARTED AT AGE 13. 1 PPD. Past Drug Use History: None Reported - Past Family History Mother Family Medical History: Cancer Additional Family Medical History / Comment(s): skin Medications and Allergies Home Medications Medication Instructions Recorded Confirmed Type Aspirin 81 mg PO DAILY 04/14/14 06/10/18 History Ibuprofen [Motrin] 800 mg PO Q8HR PRN 04/14/14 06/10/18 History Metaxalone [Skelaxin] 800 mg PO TID PRN 04/14/14 06/10/18 History Multivitamins, Thera [Multivitamin 1 tab PO DAILY 12/06/16 06/10/18 History (formulary)] Atorvastatin [Lipitor] 10 mg PO HS 06/05/18 06/10/18 History Carvedilol [Coreg] 3.125 mg PO BID 06/05/18 06/10/18 History Losartan Potassium 50 mg PO HS 06/05/18 06/10/18 History Potassium Chloride ER [K-Dur 20] 20 meq PO DAILY 06/10/18 06/10/18 History Sildenafil [Revatio] 20 mg PO DAILY 06/10/18 06/10/18 History valACYclovir [Valtrex] 500 mg PO DAILY 06/10/18 06/10/18 History Allergies Allergy/AdvReac Type Severity Reaction Status Date / Time codeine Allergy Rash/Hives, Verified 06/10/18 20:36 ITCHING red (food color) Allergy RAPID Verified 06/10/18 20:36 HEART RATE,HIVES Physical Exam Vitals: Vital Signs Temp Pulse Pulse Resp BP BP Pulse Ox 06/11/18 07:00 98.3 F 74 16 135/68 93 L 06/10/18 23:47 98.2 F 70 15 118/75 97 06/10/18 23:10 72 16 110/78 98 06/10/18 20:38 114/67 06/10/18 20:20 98.3 F 58 L 14 98/68 98 Intake and Output 06/10/18 06/11/18 06/11/18 22:59 06:59 14:59 Intake Total 222 Balance 222 Intake: Oral 222 Other: Voiding Method Toilet Toilet # Voids 1 Weight 92.986 kg GENERAL: This is a [63]-year-old [male] in no apparent distress at the time of my examination. HEENT: Head is atraumatic, normocephalic. Pupils are equal, round. Sclerae anicteric. Conjunctivae are clear. Mucous membranes of the mouth are moist. Neck is supple. There is no jugular venous distention. No carotid bruit is heard. No thyromegaly. LUNGS: Clear to auscultation no wheezes, rales or rhonchi. No chest wall te nderness is noted on palpation or with deep breathing. HEART: Regular rate and rhythm without murmurs, rubs or gallops. S1 and S2 heard. ABDOMEN: Abdominal exam - hypoactive bowel sounds. The abdomen was distended but soft, tender to touch with steri strips intact. Robotic puncture sites, CDI. No organomegaly, or appreciable enlargement of the abdominal aorta. EXTREMITIES: Examination of the extremities revealed easily palpable radial, femoral and pedal pulses. There was no cyanosis, clubbing or edema. No calf tenderness noted. VASCULAR: Radial and dorsalis pedis pulses palpated, no evidence of clubbing. NEUROLOGIC: Patient is awake, alert and oriented x3. There were no obvious focal neurologic abnormalities. Results 06/10/18 20:01 06/10/18 20:01 Cardiac Enzymes 06/10/18 06/10/18 06/11/18 Range/Units 20:01 20:01 01:46 AST 19 (17-59) U/L Troponin I <0.012 <0.012 (0.000-0.034) ng/mL 06/11/18 Range/Units 07:37 AST (17-59) U/L Troponin I <0.012 (0.000-0.034) ng/mL Coagulation 06/10/18 Range/Units 20:01 PT 11.3 (9.0-12.0) sec APTT 22.4 (22.0-30.0) sec Lipids 06/10/18 Range/Units 20:01 Triglycerides 38 (<150) mg/dL Cholesterol 109 (<200) mg/dL HDL Cholesterol 30 L (40-60) mg/dL CBC 06/10/18 Range/Units 20:01 WBC 9.3 (3.8-10.6) k/uL RBC 4.06 L (4.30-5.90) m/uL Hgb 12.2 L (13.0-17.5) gm/dL Hct 36.4 L (39.0-53.0) % Plt Count 164 (150-450) k/uL Comprehensive Metabolic Panel 06/10/18 Range/Units 20:01 Sodium 138 (137-145) mmol/L Potassium 4.7 (3.5-5.1) mmol/L Chloride 107 (98-107) mmol/L Carbon Dioxide 25 (22-30) mmol/L BUN 18 (9-20) mg/dL Creatinine 0.72 (0.66-1.25) mg/dL Glucose 156 H (74-99) mg/dL Calcium 8.4 (8.4-10.2) mg/dL AST 19 (17-59) U/L ALT 40 (21-72) U/L Alkaline Phosphatase 31 L (38-126) U/L Total Protein 5.5 L (6.3-8.2) g/dL Albumin 3.2 L (3.5-5.0) g/dL Current Medications Generic Name Dose Route Start Last Admin Trade Name Freq PRN Reason Stop Dose Admin Hydrocodone Bitart/Acetaminophen 1 each 06/11/18 08:57 06/11/18 10:31 [place] 7.5-325 PO 1 each Q4H PRN Administration MODERATE Pain Docusate Sodium 100 mg 06/11/18 21:00 Colace PO BID BOONE Sodium Chloride 1,000 mls @ 100 mls/hr 06/10/18 22:30 06/11/18 12:09 Saline 0.9% IV 100 mls/hr .Q10H BOONE Administration Morphine Sulfate 2 mg 06/11/18 03:20 06/11/18 08:36 Morphine Sulfate (Inj) IVP 2 mg Q6H PRN Administration SEVERE Pain Nitroglycerin 0.4 mg 06/10/18 22:21 Nitrostat SUBLINGUAL Q5M PRN Chest Pain Ondansetron HCl 4 mg 06/11/18 12:15 Zofran IVP Q3HR PRN Nausea And Vomiting Intake and Output 06/10/18 06/11/18 06/11/18 22:59 06:59 14:59 Intake Total 222 Balance 222 Intake: Oral 222 Other: Voiding Method Toilet Toilet # Voids 1 Weight 92.986 kg 06/10/18 20:01 06/10/18 20:01 - EKG Interpretation EKG: sinus rhythm (Sinus angi, HR 50-60's.) Assessment and Plan (1) Syncope Current Visit: Yes Status: Acute Code(s): R55 - SYNCOPE AND COLLAPSE SNOMED Code(s): 496528434 Plan: Plan: Patient currently stable from cardiology standpoint. Continue current me dication/medical regime. Continue with cautious IV hydration and blood pressure monitoring. Resume all home medications. Follow along with surgery. Encouraged IS use and to ambulation with assistance.
[2018-06-11] MEDS: DOCUSATE 100 MG CAP PO SCH (20:01)
--- NOTE | 2018-06-11 20:14 | P.HPIM ---
History of Present Illness H&P Date: 06/11/18 This is a 63-year-old male the ER status post syncopal event. Patient did have surgery earlier today for hernia. Patient states he does feel improved after surgery but he hasn't been feeling too well since he got home. He is having abdominal pain no weakness. No nausea vomiting no chest pain or shortness of breath. No headaches patient's surgery went well with no complications there is no unexplained blood loss. There is no recovery issues. Patient denies any tachycardia or shortness of breath. He underwent a CTA in the emergency department which was negative for PE. Patient is currently resting in bed comfortable. Review of Systems GENERAL: Patient denies fever. Denies chills. EYES: Denies blurred vision. Denies vision changes. Denies eye pain. EARS, NOSE, MOUTH, & THROAT: Denies headache. Denies sore throat. Denies ear pain. RESPIRATORY: Denies cough. Denies shortness of breath. Denies sputum production. Denies hemoptysis. CARDIOVASCULAR: Denies chest pain or pressure. Denies palpitations. Denies arrhythmias. GASTROINTESTINAL: Some postsurgical abdominal pain. Denies diarrhea. Denies constipation. Denies nausea. Denies vomiting. Denies heartburn. Denies blood in the stool. GENITOURINARY: Denies urinary frequency. Denies burning. Denies dysuria. Denies cloudy urine. Denies blood in the urine. MUSCULOSKELETAL: Denies myalgias. Denies joint swelling. Denies decreased range of motion beyond patients baseline. INTEGUMENTARY: Denies pruitis. Denies rash. PSYCHIATRIC: Denies suicidal or homicial ideations. ENDOCRINE: Denies weight change. Denies polydipsia. Denies polyuria. HEMATOLOGIC: Denies bleeding disorders. NEUROLOGICAL; patient denies any previous syncopal episodes. He denies any loss of bowel or bladder. He denies any post ictal state. Past Medical History Past Medical History: Hyperlipidemia, Hypertension, Osteoarthritis (OA) Additional Past Medical History / Comment(s): RIGHT INGUINAL HERNIA, HX IBS, migraines, hx elevated PSA, History of Any Multi-Drug Resistant Organisms: None Reported Past Surgical History: Heart Catheterization, Hernia Repair, Tonsillectomy Additional Past Surgical History / Comment(s): sinus surgery, surgical repair rt idex finger, cartilage removed from throat Past Anesthesia/Blood Transfusion Reactions: Motion Sickness Past Psychological History: Anxiety Smoking Status: Former smoker Past Alcohol Use History: None Reported Additional Past Alcohol Use History / Comment(s): QUIT SMOKING AT AGE 25 STARTED AT AGE 13. 1 PPD. Past Drug Use History: None Reported - Past Family History Mother Family Medical History: Cancer Additional Family Medical History / Comment(s): skin Medications and Allergies Home Medications Medication Instructions Recorded Confirmed Type Aspirin 81 mg PO DAILY 04/14/14 06/10/18 History Ibuprofen [Motrin] 800 mg PO Q8HR PRN 04/14/14 06/10/18 History Metaxalone [Skelaxin] 800 mg PO TID PRN 04/14/14 06/10/18 History Multivitamins, Thera [Multivitamin 1 tab PO DAILY 12/06/16 06/10/18 History (formulary)] Atorvastatin [Lipitor] 10 mg PO HS 06/05/18 06/10/18 History Carvedilol [Coreg] 3.125 mg PO BID 06/05/18 06/10/18 History Losartan Potassium 50 mg PO HS 06/05/18 06/10/18 History Potassium Chloride ER [K-Dur 20] 20 meq PO DAILY 06/10/18 06/10/18 History Sildenafil [Revatio] 20 mg PO DAILY 06/10/18 06/10/18 History valACYclovir [Valtrex] 500 mg PO DAILY 06/10/18 06/10/18 History Allergies Allergy/AdvReac Type Severity Reaction Status Date / Time codeine Allergy Rash/Hives, Verified 06/10/18 20:36 ITCHING red (food color) Allergy RAPID Verified 06/10/18 20:36 HEART RATE,HIVES Physical Exam Osteopathic Statement: *. No significant issues noted on an osteopathic structural exam other than those noted in the History and Physical/Consult. Vitals: Vital Signs Temp Pulse Pulse Resp BP BP Pulse Ox 06/11/18 19:23 98.2 F 71 18 139/78 91 L 06/11/18 15:00 98.5 F 73 17 116/68 93 L 06/11/18 07:00 98.3 F 74 16 135/68 93 L 06/10/18 23:47 98.2 F 70 15 118/75 97 06/10/18 23:10 72 16 110/78 98 06/10/18 20:38 114/67 06/10/18 20:20 98.3 F 58 L 14 98/68 98 Intake and Output 06/11/18 06/11/18 06/11/18 06:59 14:59 22:59 Intake Total 1022 Balance 1022 Intake: IV 800 Sodium Chloride 0.9% 1, 800 000 ml @ 100 mls/hr IV . Q10H STA Rx#:[id number] Oral 222 Other: Voiding Method Toilet Toilet # Voids 1 3 Results CBC & Chem 7: 06/10/18 20:01 06/10/18 20:01 Labs: Abnormal Lab Results - Last 24 Hours (Table) 06/10/18 06/10/18 06/10/18 Range/Units 20:01 20:01 20:01 RBC 4.06 L (4.30-5.90) m/uL Hgb 12.2 L (13.0-17.5) gm/dL Hct 36.4 L (39.0-53.0) % Neutrophils # 8.1 H (1.3-7.7) k/uL Lymphocytes # 0.7 L (1.0-4.8) k/uL D-Dimer 0.60 H (<0.60) mg/L FEU Glucose 156 H (74-99) mg/dL Alkaline Phosphatase 31 L (38-126) U/L Total Protein 5.5 L (6.3-8.2) g/dL Albumin 3.2 L (3.5-5.0) g/dL HDL Cholesterol (40-60) mg/dL 06/10/18 Range/Units 20:01 RBC (4.30-5.90) m/uL Hgb (13.0-17.5) gm/dL Hct (39.0-53.0) % Neutrophils # (1.3-7.7) k/uL Lymphocytes # (1.0-4.8) k/uL D-Dimer (<0.60) mg/L FEU Glucose (74-99) mg/dL Alkaline Phosphatase (38-126) U/L Total Protein (6.3-8.2) g/dL Albumin (3.5-5.0) g/dL HDL Cholesterol 30 L (40-60) mg/dL Thrombosis Risk Factor Assmnt - Choose All That Apply Any of the Below Risk Factors Present?: Yes Each Factor Represents 1 point: History of prior major surgery (<1month), Medical pt on bed rest Other Risk Factors: Yes Each Risk Factor Represents 2 Points: Age 61-74 years Thrombosis Risk Factor Assessment Total Risk Factor Score: 4 Thrombosis Risk Factor Assessment Level: Moderate Risk Assessment and Plan (1) Status post laparoscopic herniorrhaphy Current Visit: Yes Status: Acute Code(s): Z98.890 - OTHER SPECIFIED POSTPROCEDURAL STATES; Z87.19 - PERSONAL HISTORY OF OTHER DISEASES OF THE DIGESTIVE SYSTEM SNOMED Code(s): 47589641299889 (2) Postoperative pain Current Visit: Yes Status: Acute Code(s): G89.18 - OTHER ACUTE POSTPROCEDURAL PAIN SNOMED Code(s): 778382176 (3) Syncope Current Visit: Yes Status: Acute Code(s): R55 - SYNCOPE AND COLLAPSE SNOMED Code(s): 933508192 (4) Hypertension Current Visit: Yes Status: Acute Code(s): I10 - ESSENTIAL (PRIMARY) HYPERTENSION SNOMED Code(s): 32219716 (5) Hyperlipidemia Current Visit: Yes Status: Acute Code(s): E78.5 - HYPERLIPIDEMIA, UNSPECIFIED SNOMED Code(s): 11930364 Plan: Continue patient's hydration monitoring as surgery did consult regarding recent surgery will continue to follow patient's labs and vitals. Will anticipate discharge 1-2 days
[2018-06-12] MEDS: SODIUM CHLORIDE 0.9% 1,000 ML IV SCH (00:08)
[2018-06-12] MEDS: HYDROcodone/APAP 7.5-325MG 1 EACH TAB PO PRN ×3 (00:09→09:44)
[2018-06-12 07:50] VITALS: BP 126/77; PULSE 69; RESP 16; TEMP 97.5
--- NOTE | 2018-06-12 08:41 | P.PN ---
Subjective Progress Note Date: 06/12/18 Principal diagnosis: Syncope This is a 63-year-old male who presents in the emergency department for syncope. Patient s/p robotic hernia repair 06/10/2018 went home and was sitting in his lazy boy chair waiting for dinner. His exited the room and when she came back and he was unresponsive, with his eyes rolled back in his head. Patient does not remember the episode. Patient currently alert and oriented, able to respond appropriately, no current neurological deficits. Patient S/P hernia repair, robitically. The patient follows with Dr. SYED Bentley for cardiology, pt states he has "reduced heart function". Pt states he was advised by cardiology to discontinue alcohol use, pt compliant. Former-smoker. Pt has no current c/o of pain or discomfort at time of exam, comfortable and in no distress. 06/12/2016 = Patient continues SR, no tachycardia, no bradycardia. VSS. IV hydration continues. Troponins negative x3. Up and ambulating in the hallway with ease. No current c/o of chest pain, SOB, or palpitations. No generalized pain or discomfort, just sore belly. No nausea or vomiting, no belly distention, passing gas, no BM. Cardiology meds resumed. 06/11/2018 CT of chest negative for PE. Positive for atelectasis. Positive for surgical changes, otherwise negative. Most recent echo dated 02/23/2018 indicates [EF 50%, normal LV size with borderline normal function. Normal diastolic function. There is top normal LV wall thickness. Mild MR. Mild TR. Normal PA pressures. ]. Most recent stress testing dated 05/10/2014 ejection fraction of 55-60%. Normal myocardial perfusion imaging. Negative stress test with good exercise capacity. Hypertensive response to exercise noted. Most recent carotid ultrasound dated 07/14/2017. ICA stenosis less than 49% bilaterally. Right ICA ratio 1.0, Left ICA ratio 0.7. Antegrade vertebral flow noted bilaterally. 1. Sycnope. 2. S/P hernia repair, POD #1 PLAN: Patient currently stable from cardiology standpoint. Cardiology meds resumed. Clear from cardiology standpoint for DC. Call with any additional needs. Follow-up OP office with Dr. SYED Bentley within 2 weeks. Encouraged IS use and to ambulation with assistance. Objective - Vital Signs Vital signs: Vital Signs Temp 97.5 F L 06/12/18 07:40 Pulse 69 06/12/18 07:40 Resp 16 06/12/18 07:40 BP 126/77 06/12/18 07:40 Pulse Ox 92 L 06/12/18 07:40 Intake & Output 06/11/18 06/12/18 06/12/18 18:59 06:59 18:59 Intake Total 1022 Balance 1022 Intake: IV 800 Sodium Chloride 0.9% 1, 800 000 ml @ 100 mls/hr IV . Q10H STA Rx#:[id number] Oral 222 Other: Voiding Method Toilet Toilet # Voids 3 2 - Exam GENERAL: Well-appearing, well-nourished and in no acute distress. NECK: Supple without JVD or thyromegaly. LUNGS: Breath sounds clear to auscultation bilaterally. Respiration equal and unlabored. No wheezes, rales or rhonchi. HEART: Regular rate and rhythm without murmurs, rubs or gallops. S1 and S2 heard. EXTREMITIES: Normal range of motion, no edema. No clubbing or cyanosis. Peripheral pulses intact. ABDOMEN: Steri strips CDI. Positive bowel sounds in 4 quadrants. Mild distention, soft, tender to touch. Positive gas, no BM. - Labs CBC & Chem 7: 06/10/18 20:01 06/10/18 20:01 Assessment and Plan (1) Syncope Current Visit: Yes Status: Acute Code(s): R55 - SYNCOPE AND COLLAPSE SNOMED Code(s): 396785601 (2) Hyperlipidemia Current Visit: Yes Status: Acute Code(s): E78.5 - HYPERLIPIDEMIA, UNSPECIFIED SNOMED Code(s): 72013807 (3) Hypertension Current Visit: Yes Status: Acute Code(s): I10 - ESSENTIAL (PRIMARY) HYPERTENSION SNOMED Code(s): 02590326 Plan: Patient currently stable from cardiology standpoint. Cardiology meds resumed. Brain bernal from cardiology standpoint for DC. Call with any additional needs. Follow- up OP office with Dr. SYED Bentley within 2 weeks. Encouraged IS use and to ambulation with assistance.
[2018-06-12] MEDS ORDERED: CARVEDILOL 3.125 MG TAB PO SCH (09:00)
[2018-06-12] MEDS ORDERED: ASPIRIN 81 MG PO SCH (09:00)
[2018-06-12] MEDS: DOCUSATE 100 MG CAP PO SCH (09:46)
[2018-06-12] MEDS ORDERED: MULTIVITAMINS, THERA 1 EACH TAB PO SCH (12:00)
[2018-06-12] MEDS ORDERED: LOSARTAN 50 MG TAB PO SCH (21:00)
[2018-06-12] MEDS ORDERED: ATORVASTATIN 10 MG TAB PO SCH (21:00)
--- NOTE | 2018-06-12 23:24 | P.DS ---
Providers Date of admission: 06/10/18 22:21 Expected date of discharge: 06/12/18 Attending physician: Stephen Venegas Consults: 06/10/18 22:21 Consult Physician Urgent Consulting Provider: Eben He Consult Reason/Comments: postOp Do you want consulting provider notified?: Yes 06/11/18 12:19 Consult Physician Routine Consulting Provider: [facility] Consult Reason/Comments: syncopal episode Do you want consulting provider notified?: Yes Primary care physician: Stephen Venegas - Discharge Diagnosis(es) (1) Status post laparoscopic herniorrhaphy Status: Acute (2) Postoperative pain Status: Acute (3) Syncope Status: Acute (4) Hypertension Status: Acute (5) Hyperlipidemia Status: Acute Hospital Course: This a pleasant 63-year-old white male who was admitted to the hospital post surgical laparoscopic hernia repair. He was doing well at home however developed an acute pain in his abdomen with some nausea underwent a syncopal episode where he was out for a short brief time when he came to he was diaphoretic and cold and his brought him to the emergency department. He was subsequently readmitted for evaluation with all testing including a CT angiogram negative Patient Condition at Discharge: Fair Plan - Discharge Summary Discharge Rx Participant: Yes New Discharge Prescriptions: New HYDROcodone/APAP 7.5-325MG [[place] 7.5-325] 1 tab PO Q4H PRN 3 Days #18 tab PRN Reason: Pain Docusate [Colace] 100 mg PO BID #30 capsule Continue Metaxalone [Skelaxin] 800 mg PO TID PRN PRN Reason: Pain Aspirin 81 mg PO DAILY Ibuprofen [Motrin] 800 mg PO Q8HR PRN PRN Reason: Pain Multivitamins, Thera [Multivitamin (formulary)] 1 tab PO DAILY Carvedilol [Coreg] 3.125 mg PO BID Atorvastatin [Lipitor] 10 mg PO HS Losartan Potassium 50 mg PO HS valACYclovir [Valtrex] 500 mg PO DAILY Sildenafil [Revatio] 20 mg PO DAILY Potassium Chloride ER [K-Dur 20] 20 meq PO DAILY Discharge Medication List Aspirin 81 mg PO DAILY 04/14/14 [History] Ibuprofen [Motrin] 800 mg PO Q8HR PRN 04/14/14 [History] Metaxalone [Skelaxin] 800 mg PO TID PRN 04/14/14 [History] Multivitamins, Thera [Multivitamin (formulary)] 1 tab PO DAILY 12/06/16 [History] Atorvastatin [Lipitor] 10 mg PO HS 06/05/18 [History] Carvedilol [Coreg] 3.125 mg PO BID 06/05/18 [History] Losartan Potassium 50 mg PO HS 06/05/18 [History] Potassium Chloride ER [K-Dur 20] 20 meq PO DAILY 06/10/18 [History] Sildenafil [Revatio] 20 mg PO DAILY 06/10/18 [History] valACYclovir [Valtrex] 500 mg PO DAILY 06/10/18 [History] Docusate [Colace] 100 mg PO BID #30 capsule 06/12/18 [Rx] HYDROcodone/APAP 7.5-325MG [[place] 7.5-325] 1 tab PO Q4H PRN 3 Days #18 tab 06/12/18 [Rx] Follow up Appointment(s)/Referral(s): tSephen Venegas DO [Primary Care Provider] - 06/22/18 11:20 am Eben He MD [STAFF PHYSICIAN] - 06/16/18 3:50 pm Patient Instructions/Handouts: Syncope (DC) Discharge Disposition: HOME SELF-CARE
== END 2018-06-12 13:14 | disposition home or self-care (01) | DRG 312 ==
LOC: EC 19:43 → 4SSUR 22:21
PROVIDERS: ADMIT Family Medicine; ATTEND Family Medicine
DX: R55 Syncope and collapse (principal); J98.11 Atelectasis; I08.1 Rheumatic disorders of both mitral and tricuspid valves; I65.29 Occlusion and stenosis of unspecified carotid artery; G89.18 Other acute postprocedural pain; E78.5 Hyperlipidemia, unspecified; F41.9 Anxiety disorder, unspecified; M19.90 Unspecified osteoarthritis, unspecified site; I10 Essential (primary) hypertension; G43.909 Migraine, unspecified, not intractable, without status migrainosus; R97.20 Elevated prostate specific antigen [PSA]; K58.9 Irritable bowel syndrome, unspecified; Z79.82 Long term (current) use of aspirin; Z79.899 Other long term (current) drug therapy; Z98.890 Other specified postprocedural states; Z87.891 Personal history of nicotine dependence; Z88.5 Allergy status to narcotic agent; Z91.02 Food additives allergy status; Z80.8 Family history of malignant neoplasm of other organs or systems
CPT/HCPCS: 36415; 71275; 80053; 80061; 83735; 83880; 84100; 84484; 85025; 85379; 85610; 85730; 93005; 96360; 96361; 96374; 99285

== ENCOUNTER 2018-07-16 17:06 | Inpatient (IN) | payer BC, OTHER ==
[2018-07-16] MEDS ORDERED: HYDROmorphone 0.5 MG/0.5 ML SYRINGE IVP PRN ×2 (17:07)
[2018-07-16] MEDS ORDERED: ONDANSETRON 4 MG/2 ML VIAL IVP PRN (17:07)
[2018-07-16] MEDS ORDERED: HYDROcodone/APAP 5-325MG 1 EACH TAB PO PRN (17:07)
[2018-07-16 17:54] LABS: Basophils # (A) 0.1 k/uL (0-0.2); Basophils % (A) 1 %; Eosinophils # (A) 0.4 k/uL (0-0.7); Eosinophils % (A) 4 %; HCT 39.5 % (39.0-53.0); Lymphocytes # (A) 1.4 k/uL (1.0-4.8); Lymphocytes % (A) 15 %; MCH 29.2 pg (25.0-35.0); MCHC 32.9 g/dL (31.0-37.0); MCV 88.9 fL (80.0-100.0); Mean Platelet Volume 8.9; Monocytes # (A) 0.8 k/uL (0-1.0); Monocytes % (A) 9 %; Neutrophils # (A) 6.3 k/uL (1.3-7.7); Neutrophils % (A) 70 %; Platelet Count 159 k/uL (150-450); RBC 4.45 m/uL (4.30-5.90); RDW 13.2 % (11.5-15.5); WBC 9.1 k/uL (3.8-10.6)
[2018-07-16 17:58] LABS: ALT 29 U/L (21-72); AST 19 U/L (17-59); Albumin 4.4 g/dL (3.5-5.0); Alkaline Phosphatase 54 U/L (38-126); Anion Gap 8 mmol/L; Blood Urea Nitrogen 22 mg/dL (9-20); C Reactive Protein 16.6 mg/L (<10.0); Calcium 9.9 mg/dL (8.4-10.2); Carbon Dioxide 23 mmol/L (22-30); Chloride 109 mmol/L (98-107); Glucose 94 mg/dL (74-99); Potassium 4.3 mmol/L (3.5-5.1); Sodium 140 mmol/L (137-145); Total Bilirubin 0.6 mg/dL (0.2-1.3)
[2018-07-16 18:01] LABS: Partial Thromboplastin Time 26.3 sec (22.0-30.0); Prothrombin Time 10.3 sec (9.0-12.0)
--- NOTE | 2018-07-16 18:33 | P.HPOR ---
History of Present Illness H&P Date: 07/16/18 Chief Complaint: Right middle finger infection Mr. Castañeda is a pleasant 63-year-old [id number] male who was evaluated in the office today for a right middle finger infection. He saw Dr. Frost and on 07/08/2018 and received "right third PIP and right third MCP" injections as well as a left "second flexor tendon sheath injection. The patient noticed increasing redness and swelling 48 hours later. He was reevaluated by Dr. Frost and referred to us for further evaluation and treatment. The was given a prescription for oral Keflex but has not started it yet. He states the pain has become quite intense and has pain with any attempted movement. He is unable to sleep. The pain is now progressing of his hand. He denies any fevers, chills or recent illnesses. He denies history of diabetes, inflammatory arthropathy or autoimmune conditions. He did have a recent hernia repair. He does not smoke. Past Medical History Past Medical History: Hyperlipidemia, Hypertension, Osteoarthritis (OA) Additional Past Medical History / Comment(s): RIGHT INGUINAL HERNIA, HX IBS, migraines, hx elevated PSA, History of Any Multi-Drug Resistant Organisms: None Reported Past Surgical History: Heart Catheterization, Hernia Repair, Tonsillectomy Additional Past Surgical History / Comment(s): sinus surgery, surgical repair rt idex finger, cartilage removed from throat Past Anesthesia/Blood Transfusion Reactions: Motion Sickness Past Psychological History: Anxiety Smoking Status: Former smoker Past Alcohol Use History: None Reported Additional Past Alcohol Use History / Comment(s): QUIT SMOKING AT AGE 25 STARTED AT AGE 13. 1 PPD. Past Drug Use History: None Reported - Past Family History Mother Family Medical History: Cancer Additional Family Medical History / Comment(s): skin Medications and Allergies Home Medications Medication Instructions Recorded Confirmed Type Aspirin 81 mg PO DAILY 04/14/14 06/10/18 History Ibuprofen [Motrin] 800 mg PO Q8HR PRN 04/14/14 06/10/18 History Metaxalone [Skelaxin] 800 mg PO TID PRN 04/14/14 06/10/18 History Multivitamins, Thera [Multivitamin 1 tab PO DAILY 12/06/16 06/10/18 History (formulary)] Atorvastatin [Lipitor] 10 mg PO HS 06/05/18 06/10/18 History Carvedilol [Coreg] 3.125 mg PO BID 06/05/18 06/10/18 History Losartan Potassium 50 mg PO HS 06/05/18 06/10/18 History Potassium Chloride ER [K-Dur 20] 20 meq PO DAILY 06/10/18 06/10/18 History Sildenafil [Revatio] 20 mg PO DAILY 06/10/18 06/10/18 History valACYclovir [Valtrex] 500 mg PO DAILY 06/10/18 06/10/18 History Docusate [Colace] 100 mg PO BID #30 capsule 06/12/18 Rx HYDROcodone/APAP 7.5-325MG [[place] 1 tab PO Q4H PRN 3 Days #18 tab 06/12/18 Rx 7.5-325] Allergies Allergy/AdvReac Type Severity Reaction Status Date / Time codeine Allergy Rash/Hives, Verified 06/10/18 20:36 ITCHING red (food color) Allergy RAPID Verified 06/10/18 20:36 HEART RATE,HIVES Physical Examination There is fusiform swelling of the right middle finger centered around the PIP joint. There is a significant subcutaneous fluid collection extending from the proximal aspect of the proximal phalanx to the distal middle phalanx. There is no drainage or open wounds. There is erythema throughout the digit and extending along the dorsal third metacarpal. He has intense pain with attempted active or passive motion of the PIP joint. There is mild to moderate tenderness along the flexor sheath and no discrete fluid collection. He has no pain with palpation in the palm or along the dorsum of the hand. There is no pain with palpation of the volar or dorsal forearm or with active motion of the wrist. There is no subcutaneous crepitus. He has mild pain with passive MCP motion but this is likely due to the adjacent inflammation and swelling. Results - Labs Labs: Abnormal Lab Results - Last 24 Hours (Table) 07/16/18 Range/Units 17:30 Chloride 109 H (98-107) mmol/L BUN 22 H (9-20) mg/dL C-Reactive Protein 16.6 H (<10.0) mg/L H & H 07/16/18 Range/Units 17:30 Hgb 13.0 (13.0-17.5) gm/dL Hct 39.5 (39.0-53.0) % Coagulation 07/16/18 Range/Units 17:30 INR 1.0 (<1.2) Result Diagrams: 07/16/18 17:30 07/16/18 17:30 Assessment and Plan Assessment: Right middle finger abscess with likely septic arthritis of the proximal interphalangeal joint (1) Abscess of right middle finger Current Visit: Yes Status: Acute Code(s): L02.511 - CUTANEOUS ABSCESS OF RIGHT HAND SNOMED Code(s): 27323536 Plan: We discussed treatment options and I explained the rationale behind surgical intervention. I recommended urgent operative treatment with incision and drainage with possible PIP arthrotomy. The infection may extend into the flexor sheath which would also be debrided in the same setting. We discussed the surgical plan. Risks and benefits were reviewed including (but not limited to) the risks of persistent infection, osteomyelitis and possible need for additional surgery. Questions were invited and answered. The patient expressed understanding and wishes to proceed with surgery. Keep NPO. Hold antibiotics in anticipation of intraoperative cultures. We will proceed with surgical debridement as soon as possible. Adithya Terrell D.O. Orthopedic surgeon [facility]
[2018-07-16] MEDS ORDERED: SODIUM CHLORIDE 0.9% 1,000 ML IV ONE ×2 (18:51→19:06)
[2018-07-16] MEDS: SODIUM CHLORIDE 0.9% 1,000 ML IV SCH (19:00)
[2018-07-16] MEDS ORDERED: PROPOFOL 10 MG/ML 20 ML VIAL IV ONE (19:06)
[2018-07-16] MEDS ORDERED: ROPIVACAINE 5 MG/ML 30 ML VIAL ONE (19:06)
[2018-07-16] MEDS ORDERED: MIDAZOLAM 2 MG/2 ML VIAL ONE (19:06)
[2018-07-16] MEDS ORDERED: fentaNYL (PF) 50 MCG/ML 2 ML AMP ONE (19:06)
[2018-07-16 19:12] LABS: Erythrocyte Sedimentation Rate 11 mm/hr (0-15)
[2018-07-16] MEDS ORDERED: SODIUM CHLORIDE 0.9% 250 ML with VANCOMYCIN 1,000 MG IV ONE ×6 (19:49)
[2018-07-16] MEDS ORDERED: LACTATED RINGERS 1,000 ML IV ONE ×2 (20:49)
[2018-07-16] MEDS ORDERED: VANCOMYCIN IV PER PHARMACY 1 EACH MISC MISCELLANE SCH (21:30)
--- NOTE | 2018-07-16 21:54 | P.ONQ ---
Anesthesiology Proc Note - PNB - Peripheral Nerve Block Performed Right Infraclavicular Single Indication: Acute Post-Operative Pain Sedation Type: Sedate with meaningful contact maintained Preparation: Sterile Prep Position: Supine Needle Size: 50mm (2") Needle Gauge: 21 Technique: Ultrasound (ropi .5% 30cc) Blood Aspirated: No Pain Paresthesia on Injection Noted: No Resistance on Injection: Normal Events: Uneventful and Well Tolerated
--- NOTE | 2018-07-16 22:06 | P.OP ---
Date of Procedure: 07/16/18 Preoperative Diagnosis: 1. Right middle finger abscess -- possible septic arthritis of the proximal interphalangeal (PIP) joint Postoperative Diagnosis: 1. Right middle finger abscess 2. Septic arthritis of the right middle finger proximal interphalangeal (PIP) joint with suppurative extensor tenosynovitis Procedure(s) Performed: 1. Incision and drainage of right middle finger abscess 2. Arthrotomy, irrigation and debridement of right middle finger proximal interphalangeal (PIP) joint 3. Extensor tenosynovectomy - right middle finger Anesthesia: MAC, regional Surgeon: Adithya Terrell Estimated Blood Loss (ml): 15 Pathology: other (Cx swabs and tissue specimen) Condition: stable Disposition: PACU Indications for Procedure: The patient is a 63-year-old male who developed redness, pain and swelling after an intra-articular steroid injection 8 days ago. The patient developed an abscess in the clinical presentation was concerning for septic arthritis. Surgical debridement was recommended. This and benefits were reviewed in the office and again in preop. Patient expressed understanding and acceptance of these risks and wished to proceed with surgery. Consent forms were signed. The surgical site was confirmed and marked. Description of Procedure: The patient was positioned supine with the operative limb on an arm board. Monitored anesthesia was administered uneventfully. A tourniquet was placed on the arm. A time-out was performed, confirming the patient, the operative side, site and the procedure to be performed: all team members expressed agreement. The right upper extremity was then prepped and draped in standard, sterile fashion. The limb was exsanguinated with an Esmarch (proximal to the wrist) and the tourniquet was inflated. Loupe magnification was used throughout the case for optimum visualization. The majority of the subcutaneous fluid was on the radial aspect of the proximal phalanx. A midaxial incision was marked, extending across the PIP joint. The skin was sharply incised and full-thickness skin flaps were elevated. The neurovascular bundle was identified and protected. Gross purulence was seen beneath the extensor tendon, most prominent at the level of the neck of the proximal phalanx. The interval between the central slip and lateral band was developed. A swab culture of the pus was obtained. Extensor tendon was mobilized. There was thickened, purulent synovial tissue along the extensor tendon which was sharply and mechanically debrided with a scalpel and rongeur. This tissue was also sent for culture. The PIP joint capsule was already disrupted from the infectious process. The capsulotomy was sharply extended. Gross pus was found in the joint space. This was copiously irrigated with normal saline using an angiocatheter and syringe. At this point, IV vancomycin was started. The purulent fluid tracked along the dorsal aspect of the phalanx. The bone of the dorsal cortex was probed with a curette and found to be solid without cortical disruption or evidence of osteomyelitis. A separate incision was made along the radial aspect of the third MCP joint, extending longitudinally between the second third metacarpals. The subcutaneous tissues were significantly edematous with cloudy fitzgerald fluid but no carlin pus. An extensor tenosynovectomy was performed. The extensor zarate was elevated and explored and there was purulent material tracking down into the digit. A 5-Thai pediatric feeding tube was inserted and used to irrigate the finger. There was no appreciable effusion in the MCP joint and the capsule was not violated. The palmar aspect of the middle finger was still quite edematous with concern for infection in the flexor sheath. Returning to the midaxial incision, a small incision was made in the flexor sheath just proximal to the PIP joint. Thin fitzgerald (but not overtly purulent) fluid was seen. The decision was made to make a separate incision in the palm. A curving incision was marked at the A1 lillian level along the distal palmar crease. Skin was sharply incised and blunt spreading dissection proceeded down flexor sheath. Again, the tissues were edematous but not frankly purulent. The angiocatheter was inserted into the flexor sheath, both proximally and distally, and this was copiously irrigated with normal saline. The tourniquet was released. Active bleeders were controlled with bipolar cautery. There is moderate, steady oozing from all the wounds, including the puncture sites from the suture needle. The incisions were loosely close over vessel loop drains with interrupted 5-0 nylon sutures. Sterile dressings of Adaptic, 4 x 4's Ney and Coban were applied. All sponge needle and instrument counts were correct at the end of the case. The patient tolerated the procedure well. He was taken to recovery in stable condition. The patient will be admitted for IV antibiotics and further evaluation by the infectious disease team.
[2018-07-16] MEDS: CARVEDILOL 3.125 MG TAB PO SCH (22:19)
[2018-07-16] MEDS: LOSARTAN 50 MG TAB PO SCH (22:19)
[2018-07-16] MEDS: ATORVASTATIN 10 MG TAB PO SCH (22:19)
[2018-07-16] MEDS: VANCOMYCIN 1,500 MG in SODIUM CHLORIDE 0.9% 250 ML IVPB SCH (23:26)
[2018-07-16 23:41] VITALS: BMI 24.8
[2018-07-17] MEDS: CARVEDILOL 3.125 MG TAB PO SCH ×2 (07:40→17:51)
[2018-07-17] MEDS: HYDROmorphone 1 MG/ML 1 ML SYRINGE IVP PRN ×2 (07:40→15:19)
[2018-07-17] MEDS: ASPIRIN 81 MG PO SCH (07:40)
[2018-07-17] MEDS: VANCOMYCIN 1,500 MG in SODIUM CHLORIDE 0.9% 250 ML IVPB SCH ×3 (08:08→23:15)
--- NOTE | 2018-07-17 08:45 | P.CONS ---
History of Present Illness - Reason for Consult Consult date: 07/17/18 Possible septic arthritis - History of Present Illness This is a 63-year-old male patient gives history of having injections done to bilateral hands and Dr. Frost on July 08 for osteoarthritis. Patient received a right third PIP and right third MCP injections and left second flexor tendon sheath injection. The patient developed redness to the right middle finger with swelling and was reevaluated by DrChang: Tim. She referred him to Dr. Lema and patient was brought in to [facility] underwent I&D yesterday finding right middle finger abscess, PIP superlative extensor tenosynovitis. Patient was provided a prescription for Keflex by Dr. Frost but had not started taking this. Patient stated that he had extensive swelling and redness to the middle finger that extended across the dorsal surface of the hand. 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 He believes his tetanus is up-to-date. Patient has been afebrile, white count 9.1, creatinine 0.84, CRP 16.6, sed rate 11. Cultures are in progress. Review of Systems Constitutional: Reports chills, Denies fatigue, Denies fever, Denies lethargy, Denies malaise, Denies weakness Ears, nose, mouth and throat: Denies dental pain, Denies dysphagia, Denies mouth pain, Denies vertigo Cardiovascular: Denies chest pain, Denies dyspnea on exertion, Denies edema, Denies lightheadedness, Denies palpitations, Denies shortness of breath, Denies syncope Respiratory: Denies congestion, Denies cough, Denies cough with sputum, Denies dyspnea, Denies excessive sputum, Denies hemoptysis, Denies home oxygen, Denies wheezing Gastrointestinal: Denies abdominal pain, Denies diarrhea, Denies loss of appetite, Denies nausea, Denies vomiting Genitourinary: Denies dysuria, Denies urinary frequency, Denies urinary retention Musculoskeletal: Denies frequent falls, Denies gait dysfunction Musculoskeletal: right: hand pain, hand stiffness, hand swelling Integumentary: Reports wounds Neurological: Denies aphasia, Denies change in mentation, Denies change in speech, Denies gait dysfunction, Denies seizures Psychiatric: Denies anxiety, Denies depression Past Medical History Past Medical History: Hyperlipidemia, Hypertension, Osteoarthritis (OA) Additional Past Medical History / Comment(s): RIGHT INGUINAL HERNIA, HX IBS, migraines, hx elevated PSA, History of Any Multi-Drug Resistant Organisms: None Reported Past Surgical History: Heart Catheterization, Hernia Repair, Tonsillectomy Additional Past Surgical History / Comment(s): sinus surgery, surgical repair rt idex finger, cartilage removed from throat Past Anesthesia/Blood Transfusion Reactions: Motion Sickness Past Psychological History: Anxiety Smoking Status: Former smoker Past Alcohol Use History: None Reported Additional Past Alcohol Use History / Comment(s): QUIT SMOKING AT AGE 25 STARTED AT AGE 13. 1 PPD. Patient denies any marijuana or illicit drug use. No alcohol use. 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 Patient's stopped alcohol use April 07 of this year. Patient was at home with his . There are 2 cats one bird, fish and turtle at home. Patient denies any service. Patient works building machinery. Past Drug Use History: None Reported - Past Family History Mother Family Medical History: Cancer Additional Family Medical History / Comment(s): skin Medications and Allergies Home Medications Medication Instructions Recorded Confirmed Type Aspirin 81 mg PO DAILY 04/14/14 07/16/18 History Multivitamins, Thera [Multivitamin 1 tab PO DAILY 12/06/16 07/16/18 History (formulary)] Atorvastatin [Lipitor] 10 mg PO HS 06/05/18 07/16/18 History Carvedilol [Coreg] 3.125 mg PO BID 06/05/18 07/16/18 History Losartan Potassium 50 mg PO HS 06/05/18 07/16/18 History Sildenafil [Revatio] 20 mg PO DAILY 06/10/18 07/16/18 History Docusate [Colace] 100 mg PO BID #30 capsule 06/12/18 07/16/18 Rx HYDROcodone/APAP 7.5-325MG [[place] 1 tab PO Q4H PRN 3 Days #18 tab 06/12/18 07/16/18 Rx 7.5-325] Allergies Allergy/AdvReac Type Severity Reaction Status Date / Time codeine Allergy Rash/Hives, Verified 07/16/18 18:23 ITCHING red (food color) Allergy RAPID Verified 07/16/18 18:23 HEART RATE,HIVES Physical Exam Vitals: Vital Signs Temp Pulse Resp BP Pulse Ox 07/17/18 07:27 98.1 F 61 17 133/71 95 07/17/18 00:24 98.2 F 72 15 114/58 97 07/16/18 23:15 59 L 119/68 07/16/18 23:00 56 L 121/72 07/16/18 22:45 54 L 122/71 07/16/18 22:30 69 129/82 07/16/18 22:15 54 L 125/82 07/16/18 22:00 97.7 F 50 L 15 154/87 98 07/16/18 21:34 54 L 16 136/84 97 07/16/18 21:26 60 16 135/82 97 07/16/18 21:10 97.2 F L 64 16 130/73 97 07/16/18 18:52 98.6 F 59 L 18 162/84 98 07/16/18 17:43 98.6 F 55 L 16 162/84 97 Intake and Output 07/16/18 07/17/18 07/17/18 22:59 06:59 14:59 Intake Total 1390 840 Output Total 15 Balance 1375 840 Intake: IV 1150 Intake, IV Titration 600 Amount Sodium Chloride 0.9% 1, 350 000 ml @ 70 mls/hr IV . [id number] BOONE Rx#:[id number] Vancomycin 1,500 mg In 250 Sodium Chloride 0.9% 250 ml @ 125 mls/hr IVPB Q8HR BOONE Rx#:[id number] Oral 240 240 Output: Estimated Blood Loss 15 Other: # Voids 1 2 Weight 90.1 kg Gen: This is a 63-year-old male. He is resting in bed and appears to become 12 and in no acute distress. HEENT: Head is atraumatic, normocephalic. Pupils equal, round. Sclerae is anicteric. Conjunctiva pink. Mucous members of the mouth are moist. No thrush is noted. Dentition is in good order. No erythema edema to the oropharynx. NECK: Supple. No JVD. No lymphadenopathy. No thyromegaly. LUNGS: Clear to auscultation. No wheezes or rhonchi. No intercostal retractions. HEART: Regular rate and rhythm. No murmur. ABDOMEN: Soft. Bowel sounds are present. No masses. No tenderness. EXTREMITIES: No pedal edema. No calf tenderness. Dorsalis pedis +2 bilat erally. To the right hand, large dressing in place covering the right middle finger and hand. Capillary refill is immediate. NEUROLOGICAL: Patient is awake, alert and oriented x3. Cranial nerves 2 through 12 are grossly intact. Results Results: Laboratory Results WBC 9.1 k/uL (3.8-10.6) 07/16/18 17:30 RBC 4.45 m/uL (4.30-5.90) 07/16/18 17:30 Hgb 13.0 gm/dL (13.0-17.5) 07/16/18 17:30 Hct 39.5 % (39.0-53.0) 07/16/18 17:30 MCV 88.9 fL (80.0-100.0) 07/16/18 17:30 MCH 29.2 pg (25.0-35.0) 07/16/18 17:30 MCHC 32.9 g/dL (31.0-37.0) 07/16/18 17:30 RDW 13.2 % (11.5-15.5) 07/16/18 17:30 Plt Count 159 k/uL (150-450) 07/16/18 17:30 Neutrophils % 70 % 07/16/18 17:30 Lymphocytes % 15 % 07/16/18 17:30 Monocytes % 9 % 07/16/18 17:30 Eosinophils % 4 % 07/16/18 17: Basophils % 1 % 07/16/18 17:30 Neutrophils # 6.3 k/uL (1.3-7.7) 07/16/18 17:30 Lymphocytes # 1.4 k/uL (1.0-4.8) 07/16/18 17:30 Monocytes # 0.8 k/uL (0-1.0) 07/16/18 17:30 Eosinophils # 0.4 k/uL (0-0.7) 07/16/18 17:30 Basophils # 0.1 k/uL (0-0.2) 07/16/18 17:30 ESR 11 mm/hr (0-15) 07/16/18 17:30 PT 10.3 sec (9.0-12.0) 07/16/18 17:30 INR 1.0 (<1.2) 07/16/18 17:30 APTT 26.3 sec (22.0-30.0) 07/16/18 17:30 Sodium 140 mmol/L (137-145) 07/16/18 17:30 Potassium 4.3 mmol/L (3.5-5.1) 07/16/18 17:30 Chloride 109 mmol/L (98-107) H 07/16/18 17:30 Carbon Dioxide 23 mmol/L (22-30) 07/16/18 17:30 Anion Gap 8 mmol/L 07/16/18 17:30 BUN 22 mg/dL (9-20) H 07/16/18 17:30 Creatinine 0.84 mg/dL (0.66-1.25) 07/16/18 17:30 Est GFR (CKD-EPI)AfAm >90 (>60 ml/min/1.73 sqM) 07/16/18 17:30 Est GFR (CKD-EPI)NonAf >90 (>60 ml/min/1.73 sqM) 07/16/18 17:30 Glucose 94 mg/dL (74-99) 07/16/18 17:30 Calcium 9.9 mg/dL (8.4-10.2) 07/16/18 17:30 Total Bilirubin 0.6 mg/dL (0.2-1.3) 07/16/18 17:30 AST 19 U/L (17-59) 07/16/18 17:30 ALT 29 U/L (21-72) 07/16/18 17:30 Alkaline Phosphatase 54 U/L (38-126) 07/16/18 17:30 C-Reactive Protein 16.6 mg/L (<10.0) H 07/16/18 17:30 Total Protein 7.0 g/dL (6.3-8.2) 07/16/18 17:30 Albumin 4.4 g/dL (3.5-5.0) 07/16/18 17:30 CBC & Chem 7: 07/16/18 17:30 07/16/18 17:30 Labs: Abnormal Lab Results - Last 24 Hours (Table) 07/16/18 Range/Units 17:30 Chloride 109 H (98-107) mmol/L BUN 22 H (9-20) mg/dL C-Reactive Protein 16.6 H (<10.0) mg/L Microbiology - Last 24 Hours (Table) 07/16/18 19:50 Gram Stain - Preliminary Finger - Right Third Tissue Culture - Preliminary 07/16/18 19:50 Fungal Culture - Preliminary Finger - Right Third 07/16/18 19:50 Anaerobic Culture - Preliminary Finger - Right Third 07/16/18 19:50 Wound Culture - Preliminary Finger - Right Third 07/16/18 19:50 Acid Fast Bacilli Culture - Preliminary Finger - Right Third 07/16/18 19:50 Anaerobic Culture - Preliminary Finger - Right Third 07/16/18 19:50 Skin Fungal Culture - Preliminary Skin Scrapings Assessment and Plan Plan: This is a 63-year-old male patient who recently underwent injections for osteoarthritis subsequently developed extensor tenosynovitis of the right middle finger. Patient is currently on vancomycin. Extensive cultures were obtained during surgical procedure and are in process. Continue local wound care per orthopedics. Discussed with patient that the most likely discharge plan will be for IV antibiotics either in the home or office. Further recommendations as patient progresses. The above dictated assessment and findings were discussed with Dr. Cuenca. The impression and plan of care have been directed as dictated. Carmella Cox nurse practitioner acting as scribe for Dr. Cuenca.
--- NOTE | 2018-07-17 09:16 | P.PN ---
<Rosalva Richardson Benito - Last Filed: 07/17/18 09:08> Subjective Progress Note Date: 07/17/18 Principal diagnosis: Status post I&D right middle finger This is a 63 year-old male post incision and drainage right middle finger. This is post-op day 1. The patient was evaluated at the bedside today. The patient denies fever, chills, rigors, nausea, vomiting, abdominal pain, shortness of breath, and chest pain this morning. He states his pain is controlled at this time. We're awaiting infectious disease consultation. Cultures are pending, Gram stain reveals gram positive cocci. Objective - Vital Signs Vital signs: Vital Signs Temp 98.1 F 07/17/18 07:27 Pulse 61 07/17/18 07:27 Resp 17 07/17/18 07:27 BP 133/71 07/17/18 07:27 Pulse Ox 95 07/17/18 07:27 Intake & Output 07/16/18 07/17/18 07/17/18 18:59 06:59 18:59 Intake Total 2230 Output Total 15 Balance 2215 Weight 90.1 kg Intake: IV 1150 Intake, IV Titration 600 Amount Sodium Chloride 0.9% 1, 350 000 ml @ 70 mls/hr IV . [id number] BOONE Rx#:[id number] Vancomycin 1,500 mg In 250 Sodium Chloride 0.9% 250 ml @ 125 mls/hr IVPB Q8HR [facility]ONE Rx#:[id number] Oral 480 Output: Estimated Blood Loss 15 Other: # Voids 2 - Exam The patient is a 63-year-old male who is in no acute distress. He is alert and oriented 3. Exam of the right hand reveals a operative dressing that is clean, dry, and intact. He is able to wiggle his right middle finger within the dress ing. Neurological and circulatory status is intact. - Labs CBC & Chem 7: 07/16/18 17:30 07/16/18 17:30 Labs: Abnormal Lab Results - Last 24 Hours (Table) 07/16/18 Range/Units 17:30 Chloride 109 H (98-107) mmol/L BUN 22 H (9-20) mg/dL C-Reactive Protein 16.6 H (<10.0) mg/L Microbiology - Last 24 Hours (Table) 07/16/18 19:50 Gram Stain - Preliminary Finger - Right Third Wound Culture - Preliminary 07/16/18 19:50 Gram Stain - Preliminary Finger - Right Third Tissue Culture - Preliminary 07/16/18 19:50 Fungal Culture - Preliminary Finger - Right Third 07/16/18 19:50 Anaerobic Culture - Preliminary Finger - Right Third 07/16/18 19:50 Acid Fast Bacilli Culture - Preliminary Finger - Right Third 07/16/18 19:50 Anaerobic Culture - Preliminary Finger - Right Third 07/16/18 19:50 Skin Fungal Culture - Preliminary Skin Scrapings Assessment and Plan (1) Status post incision and drainage Current Visit: Yes Status: Acute Code(s): Z98.890 - OTHER SPECIFIED POSTPROCEDURAL STATES SNOMED Code(s): 114375140 (2) Abscess of right middle finger Current Visit: Yes Status: Acute Code(s): L02.511 - CUTANEOUS ABSCESS OF RIGHT HAND SNOMED Code(s): 77817452 (3) Septic arthritis of interphalangeal joint of finger of right hand Current Visit: Yes Status: Acute Code(s): M00.9 - PYOGENIC ARTHRITIS, UNSPECIFIED SNOMED Code(s): 044604778 (4) Hyperlipidemia Current Visit: No Status: Acute Code(s): E78.5 - HYPERLIPIDEMIA, UNSPECIFIED SNOMED Code(s): 67518105 (5) Hypertension Current Visit: No Status: Acute Code(s): I10 - ESSENTIAL (PRIMARY) HYPERTENSION SNOMED Code(s): 58069919 Plan: 1. Continue pain control 2. Antibiotics per infectious disease, currently on Vancomycin 3. Keep operative dressing in place until changed by orthopedics 4. Discharge planning with possible PICC line placement and IV antibiotics, will await cultures and infectious disease recommendations. <Adithya Terrell - Last Filed: 07/17/18 22:58> Objective - Vital Signs Vital signs: Vital Signs Temp 98.6 F 07/17/18 19:26 Pulse 53 L 07/17/18 19:26 Resp 18 07/17/18 16:20 BP 105/63 07/17/18 19:26 Pulse Ox 97 07/17/18 19:26 Intake & Output 07/17/18 07/17/18 07/18/18 06:59 18:59 06:59 Intake Total 2230 Output Total 15 Balance 2215 Intake: IV 1150 Intake, IV Titration 600 Amount Sodium Chloride 0.9% 1, 350 000 ml @ 70 mls/hr IV . [id number] BOONE Rx#:[id number] Vancomycin 1,500 mg In 250 Sodium Chloride 0.9% 250 ml @ 125 mls/hr IVPB Q8HR [facility] Rx#:[id number] Oral 480 Output: Estimated Blood Loss 15 Other: # Voids 2 3 - Labs CBC & Chem 7: 07/16/18 17:30 07/16/18 17:30 Labs: Microbiology - Last 24 Hours (Table) 07/16/18 19:50 Acid Fast Bacilli Smear - Final Finger - Right Third Acid Fast Bacilli Culture - Preliminary 07/16/18 17:30 Blood Culture - Preliminary Blood No Growth after 24 hours 07/16/18 19:50 Gram Stain - Preliminary Finger - Right Third Wound Culture - Preliminary Presumptive Staph aureus 07/16/18 19:50 Gram Stain - Preliminary Finger - Right Third Tissue Culture - Preliminary Presumptive Staph aureus 07/16/18 19:50 Fungal Culture - Preliminary Finger - Right Third 07/16/18 19:50 Anaerobic Culture - Preliminary Finger - Right Third 07/16/18 19:50 Anaerobic Culture - Preliminary Finger - Right Third 07/16/18 19:50 Skin Fungal Culture - Preliminary Skin Scrapings Assessment and Plan (1) Abscess of right middle finger Current Visit: Yes Status: Acute Code(s): L02.511 - CUTANEOUS ABSCESS OF RIGHT HAND SNOMED Code(s): 56824622 Plan: Discussed with AME Richardson and agree with above. Patient was subsequently seen and examined by myself as well. S: States pain well controlled at rest but still very painful to move O: Finger edematous but no visible erythema. Able to perform limited AROM (approx 30 degree arc at PIP). Quite painful with PROM beyond this A: 1. POD #1 s/p I&D right middle finger abscess/PIP septic arthritis with extensor tenolysis 2. Positive cultures: GPC - presumptive staph aureus P: Encouraged frequent active and passive motion. Continue abx per ID -- appreciate Dr. Cuenca assistance I will change dressings and likely remove drains tomorrow. DC planning in progress Adithya Terrell D.O. [facility]
[2018-07-17] MEDS: HYDROcodone/APAP 5-325MG 1 EACH TAB PO PRN ×2 (11:13→17:51)
[2018-07-17] MEDS: SODIUM CHLORIDE 0.9% 1,000 ML IV SCH ×2 (11:21→22:38)
--- NOTE | 2018-07-17 15:30 | P.CON ---
Consult Note - . Consult date: 07/17/18 Assessment/Plan:: This is a 63-year-old male patient gives history of having injections done to bilateral hands and Dr. Frost on July 08 for osteoarthritis. Patient received a right third PIP and right third MCP injections and left second flexor tendon sheath injection. The patient developed redness to the right middle finger with swelling and was reevaluated by DrChang: Tim. She referred him to Dr. Lema and patient was brought in to [facility] underwent I&D yesterday finding right middle finger abscess, PIP superlative extensor tenosynovitis. Patient was provided a prescription for Keflex by Dr. Frost but had not started taking this. Patient stated that he had extensive swelling and redness to the middle finger that extended across the dorsal surface of the hand. 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 He believes his tetanus is up-to-date. Patient has been afebrile, white count 9.1, creatinine 0.84, CRP 16.6, sed rate 11. Cultures are in progress. Please see the consult note as dictated by GEAR DESIGN ENGINEER Carmella Kenny. Pleasant 63-year-old male who has arthritis and underwent an injection with steroids to multiple joints including the right hand third finger interphalangeal joint. Abdomen had rapid increase of pain and swelling without evidence of an abscess and the tenosynovitis. Despite outpatient by therapy with Keflex he worsened and is brought in the hospital. This time a consult vancomycin was advised. Patient, taken to the operating room is had incision and drainage. Given that this is a hand joint infection and tenosynovitis will likely be going home on a 4-6 week course of intravenous antibiotic therapy likely with vancomycin but cultures will help decide the final antibiotic at time of discharge. PICC line is being requested to be placed Friday before is discharged home. I agree with the consult note as dictated by VIKASH Carlson Carmella Kenny.
[2018-07-17] MEDS: MULTIVITAMINS, THERA 1 EACH TAB PO SCH (17:30)
--- NOTE | 2018-07-17 18:30 | P.CONS ---
History of Present Illness - Reason for Consult Consult date: 07/17/18 Medical management for Hyperlipidemia,Hypertension Requesting physician: Adithya Carmelita Nidhi - Chief Complaint Right middle finger infection - History of Present Illness This is 63-year-old gentleman who follows with Dr. Frost for osteoarthritis,developed a right middle finger infection. Followed up with Dr. Frost on 07/08/18. Received injections of the affected extremity; right third PIP and MCP as well as left second flexor tendon sheath. Developed significant pain, redness, edema extending across dorsal aspect of hand,with no open wounds, no drainage. Reevaluated by Dr. Frost, received antibiotic prescription for Keflex and [facility]. Patient did not begin antibiotics.evaluated by orthopedics,suspected septic arth ritis/abscess of the proximal interphalangeal joint,admitted to the hospital. Underwent I&D the right middle finger abscess,arthrotomy, irrigation and debridement of PIP joint,extensor tenosynovectomy. Tolerated procedure well. Afebrile, WBC 9.1,cultures pending, Gram stain reporting gram-positive cocci.VSS. Review of Systems GENERAL: Patient denies fever. Denies chills. EYES: Denies blurred vision. Denies vision changes. Denies eye pain. EARS, NOSE, MOUTH, & THROAT: Denies headache. Denies sore throat. Denies ear pain. RESPIRATORY: Denies shortness of breath. Denies sputum production. Denies hemoptysis. CARDIOVASCULAR: Denies chest pain or pressure. palpitations. Denies previous arrhythmias. GASTROINTESTINAL: Denies abdominal pain. Denies diarrhea. Denies constipation. Denies nausea. Denies vomiting. Denies heartburn. Denies blood in the stool. GENITOURINARY: Denies urinary frequency. Denies burning. Denies dysuria. Denies cloudy urine. Denies blood in the urine. MUSCULOSKELETAL: positive for osteoarthritis, right hand tenderness, edema.denies gait dysfunction INTEGUMENTARY: status post I&D. PSYCHIATRIC: Denies suicidal or homicial ideations. Past Medical History Past Medical History: Hyperlipidemia, Hypertension, Osteoarthritis (OA) Additional Past Medical History / Comment(s): RIGHT INGUINAL HERNIA, HX IBS, migraines, hx elevated PSA, History of Any Multi-Drug Resistant Organisms: None Reported Past Surgical History: Heart Catheterization, Hernia Repair, Tonsillectomy Additional Past Surgical History / Comment(s): sinus surgery, surgical repair rt idex finger, cartilage removed from throat Past Anesthesia/Blood Transfusion Reactions: Motion Sickness Past Psychological History: Anxiety Smoking Status: Former smoker Past Alcohol Use History: None Reported Additional Past Alcohol Use History / Comment(s): QUIT SMOKING AT AGE 25 STARTED AT AGE 13. 1 PPD. Patient denies any marijuana or illicit drug use. No alcohol use. She did have a problem with alcoholism and his strip roller warned him that he would develop cardiomyopathy. Patient's stopped alcohol use April 07 of this year. Patient was at home with his . There are 2 cats one bird, fish and turtle at home. Patient denies any service. Patient works building machinery. Past Drug Use History: None Reported - Past Family History Mother Family Medical History: Cancer Additional Family Medical History / Comment(s): skin Medications and Allergies Home Medications Medication Instructions Recorded Confirmed Type Aspirin 81 mg PO DAILY 04/14/14 07/16/18 History Multivitamins, Thera [Multivitamin 1 tab PO DAILY 12/06/16 07/16/18 History (formulary)] Atorvastatin [Lipitor] 10 mg PO HS 06/05/18 07/16/18 History Carvedilol [Coreg] 3.125 mg PO BID 06/05/18 07/16/18 History Losartan Potassium 50 mg PO HS 06/05/18 07/16/18 History Sildenafil [Revatio] 20 mg PO DAILY 06/10/18 07/16/18 History Docusate [Colace] 100 mg PO BID #30 capsule 06/12/18 07/16/18 Rx HYDROcodone/APAP 7.5-325MG [[place] 1 tab PO Q4H PRN 3 Days #18 tab 06/12/18 07/16/18 Rx 7.5-325] Clindamycin [Cleocin] 300 mg PO Q6H #28 capsule 07/17/18 Rx Allergies Allergy/AdvReac Type Severity Reaction Status Date / Time codeine Allergy Rash/Hives, Verified 07/16/18 18:23 ITCHING red (food color) Allergy RAPID Verified 07/16/18 18:23 HEART RATE,HIVES Physical Exam Vitals: Vital Signs Temp Pulse Resp BP Pulse Ox 07/17/18 16:20 98.2 F 59 L 18 125/65 96 07/17/18 07:27 98.1 F 61 17 133/71 95 07/17/18 00:24 98.2 F 72 15 114/58 97 07/16/18 23:15 59 L 119/68 07/16/18 23:00 56 L 121/72 07/16/18 22:45 54 L 122/71 07/16/18 22:30 69 129/82 07/16/18 22:15 54 L 125/82 07/16/18 22:00 97.7 F 50 L 15 154/87 98 07/16/18 21:34 54 L 16 136/84 97 07/16/18 21:26 60 16 135/82 97 07/16/18 21:10 97.2 F L 64 16 130/73 97 07/16/18 18:52 98.6 F 59 L 18 162/84 98 07/16/18 17:43 98.6 F 55 L 16 162/84 97 Intake and Output 07/17/18 07/17/18 07/17/18 06:59 14:59 22:59 Intake Total 840 Balance 840 Intake: Intake, IV Titration 600 Amount Sodium Chloride 0.9% 1, 350 000 ml @ 70 mls/hr IV . [id number] [facility] Rx#:[id number] Vancomycin 1,500 mg In 250 Sodium Chloride 0.9% 250 ml @ 125 mls/hr IVPB Q8HR [facility] Rx#:[id number] Oral 240 Other: # Voids 2 3 PHYSICAL EXAM: VITAL SIGNS: [As above] GENERAL: Sitting up in bed, no acute distress HEENT: Conjunctivae normal. eyes normal. NECK: No JVD. No thyroid enlargement. No LNs CARDIOVASCULAR: S1, S2 muffled. No murmur RESPIRATION: Breath sounds diminished in the bases. No rhonchi or crackles. No bronchial breathing. ABDOMEN: Soft, nontender . No guarding. no masses palpable.Bowel sounds heard. LEGS: No edema. no swelling PSYCHIATRY: Alert and oriented -3, mood and affect normal. NERVOUS SYSTEM: Cranial N 2-12 grossly normal. Moves all 4 limbs. No focal deficits. Skin: Right hand dressing clean dry and intact, wiggles right middle finger Microbiology 07/16/18 19:50 Finger - Right Third Gram Stain - Preliminary 07/16/18 19:50 Finger - Right Third Wound Culture - Preliminary 07/16/18 19:50 Finger - Right Third Gram Stain - Preliminary 07/16/18 19:50 Finger - Right Third Tissue Culture - Preliminary 07/16/18 19:50 Finger - Right Third Fungal Culture - Preliminary 07/16/18 19:50 Finger - Right Third Anaerobic Culture - Preliminary 07/16/18 19:50 Finger - Right Third Acid Fast Bacilli Culture - Preliminary 07/16/18 19:50 Finger - Right Third Anaerobic Culture - Preliminary 07/16/18 19:50 Skin Scrapings Skin Fungal Culture - Preliminary Results CBC & Chem 7: 07/16/18 17:30 07/16/18 17:30 Labs: Abnormal Lab Results - Last 24 Hours (Table) 07/16/18 Range/Units 17:30 Chloride 109 H (98-107) mmol/L BUN 22 H (9-20) mg/dL C-Reactive Protein 16.6 H (<10.0) mg/L Microbiology - Last 24 Hours (Table) 07/16/18 19:50 Gram Stain - Preliminary Finger - Right Third Wound Culture - Preliminary 07/16/18 19:50 Gram Stain - Preliminary Finger - Right Third Tissue Culture - Preliminary 07/16/18 19:50 Fungal Culture - Preliminary Finger - Right Third 07/16/18 19:50 Anaerobic Culture - Preliminary Finger - Right Third 07/16/18 19:50 Acid Fast Bacilli Culture - Preliminary Finger - Right Third 07/16/18 19:50 Anaerobic Culture - Preliminary Finger - Right Third 07/16/18 19:50 Skin Fungal Culture - Preliminary Skin Scrapings Assessment and Plan Assessment: -Abscess of right middle finger, status post I&D,arthrotomy, irrigation and debridement of PIP joint,extensor tenosynovectomy. Gram stain reporting gram- positive cocci. -Septic arthritis of interphalangeal joint of the finger -right hand -Hyperlipidemia -Hypertension Plan: Continue on current medication regime ,monitoring and symptomatic treatment. Pain management and [facility] care [facility] per [facility]. Follow cultures closely. Antibiotics as per ID. potential PICC line placement. GI prophylaxis in place/patient ambulatory. Further recommendations to follow. Thank you Dr. Garnica for allowing us to participate in the care of this nice gentleman. The impression and plan of care has been dictated as directed. : I performed a history and examination of this patient, discussed the same with the dictator. I agree with the dictator's note ,documented as a scribe. Any additional findings or plans will be noted. Time taken: 35 minutes
[2018-07-17] MEDS: PANTOPRAZOLE 40 MG/10 ML VIAL IVP SCH (19:53)
[2018-07-17] MEDS: ATORVASTATIN 10 MG TAB PO SCH (21:57)
[2018-07-17] MEDS: LOSARTAN 50 MG TAB PO SCH (21:58)
[2018-07-18] MEDS: HYDROcodone/APAP 5-325MG 1 EACH TAB PO PRN ×4 (04:17→23:00)
[2018-07-18] MEDS ORDERED: VANCOMYCIN TROUGH DUE 1 EACH MISC MISCELLANE ONE (07:00)
[2018-07-18 08:06] LABS: Anion Gap 6 mmol/L; Blood Urea Nitrogen 14 mg/dL (9-20); Carbon Dioxide 25 mmol/L (22-30); Chloride 109 mmol/L (98-107); Glucose 89 mg/dL (74-99); Potassium 4.1 mmol/L (3.5-5.1); Sodium 140 mmol/L (137-145)
[2018-07-18] MEDS: PANTOPRAZOLE 40 MG/10 ML VIAL IVP SCH (09:05)
[2018-07-18] MEDS: ASPIRIN 81 MG PO SCH (09:05)
[2018-07-18] MEDS: HYDROmorphone 1 MG/ML 1 ML SYRINGE IVP PRN ×3 (09:05→20:22)
[2018-07-18] MEDS: MULTIVITAMINS, THERA 1 EACH TAB PO SCH (09:05)
[2018-07-18] MEDS: CARVEDILOL 3.125 MG TAB PO SCH ×2 (09:05→16:31)
--- NOTE | 2018-07-18 10:54 | P.PN ---
Subjective Progress Note Date: 07/18/18 Principal diagnosis: S/P I&D right middle finger Patient is seen at bedside this morning. He is postop day #2 from I and D right middle finger. He has pain at the surgical site as expected but denies any new complaints. He denies numbness, tingling or calf pain. Review of systems is negative for fever, chills, chest pain, shortness of breath or other Objective - Vital Signs Vital signs: Vital Signs Temp 97.9 F 07/18/18 01:09 Pulse 61 07/18/18 01:09 Resp 16 07/18/18 01:09 BP 136/67 07/18/18 01:09 Pulse Ox 96 07/18/18 01:09 Intake & Output 07/17/18 07/18/18 07/18/18 18:59 06:59 18:59 Other: # Voids 3 - Exam Inspection reveals a benign surgical wound. There is no active bleeding or drainage. Neurovascular status is intact throughout the upper extremity with motor and sensation fully intact. 2+ radial pulse and less than 2 second cap refill is present. - Constitutional General appearance: Present: no acute distress - Labs CBC & Chem 7: 07/16/18 17:30 07/18/18 07:16 Labs: Abnormal Lab Results - Last 24 Hours (Table) 07/18/18 Range/Units 07:16 Chloride 109 H (98-107) mmol/L Microbiology - Last 24 Hours (Table) 07/16/18 19:50 Acid Fast Bacilli Smear - Final Finger - Right Third Acid Fast Bacilli Culture - Preliminary 07/16/18 17:30 Blood Culture - Preliminary Blood No Growth after 24 hours 07/16/18 19:50 Gram Stain - Preliminary Finger - Right Third Wound Culture - Preliminary Presumptive Staph aureus 07/16/18 19:50 Gram Stain - Preliminary Finger - Right Third Tissue Culture - Preliminary Presumptive Staph aureus Assessment and Plan (1) Abscess of right middle finger Narrative/Plan: He will continue with routine postop orthopedic protocol including pain management, wound care, PT, DVT prophylaxis, infectious disease and medical management. PICC placement pending for Friday. Current Visit: Yes Status: Acute Priority: Medium Code(s): L02.511 - CUTANEOUS ABSCESS OF RIGHT HAND SNOMED Code(s): 88726933 Time with Patient: Less than 30
[2018-07-18] MEDS: VANCOMYCIN 1,500 MG in SODIUM CHLORIDE 0.9% 250 ML IVPB SCH ×2 (11:17→17:34)
--- NOTE | 2018-07-18 14:16 | P.PN ---
Subjective Progress Note Date: 07/18/18 Patient was seen and examined at the bedside. He states the pain level has continued to decrease and is less than it was before surgery. He's been trying hard to mobilize the finger and feels it is doing better. Objective - Vital Signs Vital signs: Vital Signs Temp 98.7 F 07/18/18 08:00 Pulse 61 07/18/18 08:00 Resp 18 07/18/18 08:00 BP 128/73 07/18/18 08:00 Pulse Ox 92 L 07/18/18 08:00 Intake & Output 07/17/18 07/18/18 07/18/18 18:59 06:59 18:59 Intake Total 1040 Balance 1040 Intake: Intake, IV Titration 560 Amount Sodium Chloride 0.9% 1, 560 000 ml @ 70 mls/hr IV . [id number] [facility] Rx#:[id number] Oral 480 Other: # Voids 3 1 - Exam Right hand: The dressings were removed. The edema and erythema on the dorsum of the hand have improved. There is no purulence from the palmar or dorsal wounds. The middle finger has again become grossly enlarged, erythematous and edematous though not frankly fluctuant. All drains were removed. A small amount of purulent fluid was expressed from the lateral incision with active flexion. Patient is able to actively flex and extend somewhat but has pain with this maneuver, particularly at the PIP joint. - Labs CBC & Chem 7: 07/16/18 17:30 07/18/18 07:16 Labs: Abnormal Lab Results - Last 24 Hours (Table) 07/18/18 Range/Units 07:16 Chloride 109 H (98-107) mmol/L Microbiology - Last 24 Hours (Table) 07/16/18 19:50 Acid Fast Bacilli Smear - Final Finger - Right Third Acid Fast Bacilli Culture - Preliminary 07/16/18 17:30 Blood Culture - Preliminary Blood No Growth after 24 hours 07/16/18 19:50 Gram Stain - Preliminary Finger - Right Third Wound Culture - Preliminary Presumptive Staph aureus 07/16/18 19:50 Gram Stain - Preliminary Finger - Right Third Tissue Culture - Preliminary Presumptive Staph aureus Assessment and Plan Assessment: 1. POD #2 s/p incision and drainage of right middle finger abscess with PIP arthrotomy and extensor tenosynovectomy 2. Septic arthritis of the right middle finger proximal interphalangeal (PIP) joint with suppurative extensor tenosynovitis (1) Abscess of right middle finger Current Visit: Yes Status: Acute Priority: Medium Code(s): L02.511 - CUTANEOUS ABSCESS OF RIGHT HAND SNOMED Code(s): 16247081 Plan: Cultures are still pending - continue empiric IV vanco. I encouraged the patient to aggressively work on active and passive motion of the finger, wrist and hand. If the swelling and redness have not significantly improved by tomorrow, the finger will likely require a repeat I&D.
[2018-07-18] MEDS: SODIUM CHLORIDE 0.9% 1,000 ML IV SCH (15:00)
[2018-07-18] MEDS: ATORVASTATIN 10 MG TAB PO SCH (20:21)
[2018-07-18] MEDS: LOSARTAN 50 MG TAB PO SCH (20:22)
[2018-07-18] MEDS: SENNOSIDES-DOCUSATE SODIUM 1 EACH TAB PO PRN (20:22)
[2018-07-19] MEDS: VANCOMYCIN 1,500 MG in SODIUM CHLORIDE 0.9% 250 ML IVPB SCH ×3 (00:21→16:54)
[2018-07-19] MEDS: HYDROmorphone 1 MG/ML 1 ML SYRINGE IVP PRN ×5 (00:22→22:21)
[2018-07-19] MEDS: SODIUM CHLORIDE 0.9% 1,000 ML IV SCH ×2 (03:29→17:06)
[2018-07-19] MEDS: HYDROcodone/APAP 5-325MG 1 EACH TAB PO PRN ×3 (06:16→20:34)
[2018-07-19] MEDS: MULTIVITAMINS, THERA 1 EACH TAB PO SCH (07:11)
[2018-07-19] MEDS: ASPIRIN 81 MG PO SCH (07:11)
[2018-07-19] MEDS: PANTOPRAZOLE 40 MG TABLET PO SCH (07:11)
[2018-07-19] MEDS: CARVEDILOL 3.125 MG TAB PO SCH ×2 (07:11→17:05)
[2018-07-19 07:53] LABS: Basophils % (A) 1 %; Eosinophils # (A) 0.3 k/uL (0-0.7); Eosinophils % (A) 4 %; HCT 34.1 % (39.0-53.0); HGB 11.9 gm/dL (13.0-17.5); Lymphocytes # (A) 1.3 k/uL (1.0-4.8); Lymphocytes % (A) 22 %; MCH 30.6 pg (25.0-35.0); MCHC 34.9 g/dL (31.0-37.0); MCV 87.8 fL (80.0-100.0); Mean Platelet Volume 8.4; Monocytes # (A) 0.6 k/uL (0-1.0); Monocytes % (A) 10 %; Neutrophils # (A) 3.7 k/uL (1.3-7.7); Neutrophils % (A) 61 %; Platelet Count 137 k/uL (150-450); RBC 3.89 m/uL (4.30-5.90); RDW 13.1 % (11.5-15.5); WBC 6.1 k/uL (3.8-10.6)
[2018-07-19 07:58] LABS: Anion Gap 6 mmol/L; Blood Urea Nitrogen 13 mg/dL (9-20); Calcium 8.9 mg/dL (8.4-10.2); Carbon Dioxide 27 mmol/L (22-30); Chloride 107 mmol/L (98-107); Glucose 85 mg/dL (74-99); Potassium 3.9 mmol/L (3.5-5.1); Sodium 140 mmol/L (137-145)
--- NOTE | 2018-07-19 08:16 | P.PN ---
Subjective Progress Note Date: 07/19/18 Patient states he's been moving the finger as much as possible. Pain level not significantly changed. Objective - Vital Signs Vital signs: Vital Signs Temp 98.4 F 07/19/18 01:57 Pulse 65 07/19/18 01:57 Resp 16 07/19/18 01:57 BP 122/72 07/19/18 01:57 Pulse Ox 93 L 07/19/18 01:57 Intake & Output 07/18/18 07/19/18 07/19/18 18:59 06:59 18:59 Intake Total 1220 1160 Balance 1220 1160 Intake: Intake, IV Titration 560 1160 Amount Sodium Chloride 0.9% 1, 560 910 000 ml @ 70 mls/hr IV . [id number] [facility] Rx#:[id number] Vancomycin 1,500 mg In 250 Sodium Chloride 0.9% 250 ml @ 125 mls/hr IVPB Q8HR [facility] Rx#:[id number] Oral 660 Other: Voiding Method Toilet # Voids 1 2 - Exam Right hand: The dressings were removed. Interval increase in erythema and edema. Purulent exudate on dressings. Middle finger is quite enlarged (especially around PIP joint) and tender to palpation - Labs CBC & Chem 7: 07/19/18 06:57 07/19/18 06:57 Labs: Abnormal Lab Results - Last 24 Hours (Table) 07/19/18 Range/Units 06:57 RBC 3.89 L (4.30-5.90) m/uL Hgb 11.9 L (13.0-17.5) gm/dL Hct 34.1 L (39.0-53.0) % Plt Count 137 L (150-450) k/uL Microbiology - Last 24 Hours (Table) 07/16/18 17:30 Blood Culture - Preliminary Blood No Growth after 48 hours 07/16/18 19:50 Gram Stain - Final Finger - Right Third Wound Culture - Final Staphylococcus aureus 07/16/18 19:50 Gram Stain - Final Finger - Right Third Tissue Culture - Final Staphylococcus aureus Assessment and Plan Assessment: 1. POD #3 s/p incision and drainage of right middle finger abscess with PIP arthrotomy and extensor tenosynovectomy 2. Septic arthritis of the right middle finger proximal interphalangeal (PIP) joint with suppurative extensor tenosynovitis (1) Abscess of right middle finger Current Visit: Yes Status: Acute Priority: Medium Code(s): L02.511 - CUTANEOUS ABSCESS OF RIGHT HAND SNOMED Code(s): 31874353 Plan: The middle finger is clinically worsening and I recommended repeat I&D. The patient is in agreement. Keep NPO. Will proceed with surgical debridement as soon as possible.
[2018-07-19] MEDS ORDERED: MIDAZOLAM 2 MG/2 ML VIAL IVP ONE (08:59)
[2018-07-19] MEDS ORDERED: ROPIVACAINE 5 MG/ML 30 ML VIAL ONE (09:31)
[2018-07-19] MEDS ORDERED: LIDOCAINE 2% (PF) 20 MG/ML 5 ML VIAL ONE (09:31)
[2018-07-19] MEDS ORDERED: KETAMINE 10 MG/ML 20 ML VIAL ONE (09:31)
[2018-07-19] MEDS ORDERED: fentaNYL (PF) 50 MCG/ML 2 ML AMP ONE (09:31)
[2018-07-19] MEDS ORDERED: MIDAZOLAM 2 MG/2 ML VIAL ONE (09:31)
[2018-07-19] MEDS ORDERED: PROPOFOL 10 MG/ML 20 ML VIAL IV ONE (09:31)
[2018-07-19] MEDS ORDERED: SODIUM CHLORIDE 0.9% 1,000 ML IV ONE ×2 (09:38→11:55)
[2018-07-19] MEDS ORDERED: LIDOCAINE 2% (PF) 20 MG/ML 10 ML AMP SQ ONE (09:38)
[2018-07-19] MEDS ORDERED: BUPIVACAINE (PF) 0.5% 30 ML VIAL SQ ONE (11:51)
[2018-07-19] MEDS ORDERED: HYDROcodone/APAP 5-325MG 1 EACH TAB PO PRN (12:18)
[2018-07-19] MEDS: NAFCILLIN IVPB SCH ×2 (12:53)
[2018-07-19] MEDS: WATER IVPB SCH ×2 (12:53)
[2018-07-19] MEDS: DEXTROSE 5% IVPB SCH ×2 (12:53)
--- NOTE | 2018-07-19 12:55 | P.OP ---
Date of Procedure: 07/19/18 Preoperative Diagnosis: 1. Right middle finger abscess 2. Septic arthritis of the right middle finger proximal interphalangeal (PIP) joint with suppurative extensor tenosynovitis Postoperative Diagnosis: 1. Right middle finger abscess 2. Septic arthritis of the right middle finger proximal interphalangeal (PIP) joint with suppurative extensor tenosynovitis Procedure(s) Performed: 1. Repeat irrigation and debridement of right middle finger abscess 2. Arthrotomy, irrigation and debridement of right middle finger metacarpophalangeal (MCP) joint 3. Extensor & flexor tenosynovectomy - right middle finger Anesthesia: MAC, local Surgeon: Adithya Terrell Estimated Blood Loss (ml): 10 Pathology: none sent Condition: stable Disposition: PACU Indications for Procedure: The patient is a 63-year-old male who previously underwent I&D of his right middle finger abscess and PIP septic arthritis. The finger clinically worsened following the index surgery and repeat debridement was recommended. Risks and benefits were reviewed again, including wound healing problems/dehiscence, stiffness, adhesions and possible need for additional surgery. The patient expressed understanding and wished to proceed with surgery. The operative site was confirmed and marked preoperatively. Description of Procedure: The patient was positioned supine with the operative limb on an arm board. Monitored anesthesia was administered uneventfully. A tourniquet was placed on the arm. A time-out was performed which confirmed the patient, the operative side, site and the procedure to be performed: all team members expressed agreement. The right upper extremity was then prepped and draped in standard, sterile fashion. Lidocaine without epinephrine was injected as a field block at the mid-metacarpal level for additional anesthesia. The limb was exsanguinated w ith an Esmarch (proximal to the hand) and the tourniquet was inflated. Loupe magnification was used throughout the case for optimum visualization. The sutures were removed and the previous incisions were bluntly spread. There was hematoma and purulent-appearing granular tissue within the wound and tracking along the extensor sheath but no large collections of fluid or pus. This was debrided with a curette and a rongeur. The volar subcutaneous tissues were explored and the septae were divided. No purulent matter or focal infection was identified. The volar wound in the palm was opened again. Hematoma and fibrous tissue were resected with a rongeur. The A1 lillian was sharply incised longitudinally. The tendons were elevated out of the wound with Ragnell retractors. A tenosynovectomy was performed. There was some fraying of the FDS tendon at this level and the frayed edges were trimmed away. The dorsal incision was explored. Thickened inflammatory and synovial tissue was identified and resected from along the common extensor. The MCP joint capsule looked edematous. Since he also had an injection into this joint at the same time as the one that led to the infection, there was concern that this might be an additional source of persistent infection and the decision was made to explore the MCP joint. A small capsulotomy was created. A modest amount of thin, clear, nonpurulent fluid was evacuated. This did not appear grossly infected. This was copiously irrigated with normal saline using an angiocatheter and syringe and the capsulotomy was left open to drain. All wounds were copiously irrigated with over 800 mL of normal saline. The tourniquet was released and good hemostasis was obtained with bipolar cautery. The ulnar aspect of the proximal phalanx immediately looked full and fluctuant, concerning for a localized abscess and the decision was made to open this side as well. A midaxial incision was marked along the ulnar aspect of the PIP joint. The skin was sharply incised and full-thickness skin flaps were elevated. The subcutaneous tissue were edematous but no gross purulence or necrotic tissue was identified. The wound was thoroughly irrigated with normal saline. The tourniquet was released again and good hemostasis confirmed. Drains, created from strips of the Esmarch, were inserted into each of the wounds, with 2 in the radial wound (one along the extensor and one along the flexor sheath). The incisions were loosely closed with interrupted 4-0 and 5-0 Prolene sutures. Marcaine without epinephrine was injected into the dorsum of the hand and a median nerve block at the wrist was also performed. Sterile dressings of Adaptic, 4 x 4's, Ney and Coban were applied. All sponge, needle and instrument counts were correct at the end of the case. The patient tolerated the procedure well. He was taken to recovery in stable condition.
--- NOTE | 2018-07-19 15:12 | P.PN ---
Subjective Progress Note Date: 07/18/18 Principal diagnosis: Right middle finger abscess Covering for Dr. Venegas over the weekend Mr. Castañeda is a 63-year-old gentleman with the past medical history of osteoarthritis coming in with swelling and redness of the right middle finger after having a corticosteroid shot by Dr. Frost one week back. Patient had I and D of the abscess done yesterday. Today the patient is lying comfortably in bed appears to be in no acute distress. Patient denies having any fevers chills or rigors. He denies having any chest pain or palpitations. No cough or difficulty in breathing. No dysuria or hematuria. No abdominal pain nausea vomiting or diarrhea. Patient's labs and medications have been reviewed. Active Medications Hydrocodone Bitart/Acetaminophen ([place] 5-325) 1 each PO Q6HR PRN PRN Reason: Pain Scale 1 to 5 Last Admin: 07/17/18 06:24 Dose: 1 each Documented by: Hydrocodone Bitart/Acetaminophen ([place] 5-325) 2 each PO Q6HR PRN PRN Reason: Pain Scale 6 to 10 Last Admin: 07/18/18 16:30 Dose: 2 each Documented by: Aspirin (Aspirin) 81 mg PO DAILY [facility] Last Admin: 07/18/18 09:05 Dose: 81 mg Documented by: Atorvastatin Calcium (Lipitor) 10 mg PO HS [facility] Last Admin: 07/17/18 21:57 Dose: 10 mg Documented by: Carvedilol (Coreg) 3.125 mg PO BID-W/MEALS [facility] Last Admin: 07/18/18 16:31 Dose: 3.125 mg Documented by: Hydromorphone HCl (Dilaudid) 0.25 mg IVP Q3HR PRN PRN Reason: Pain Scale 1 to 3 Hydromorphone HCl (Dilaudid) 1 mg IVP Q3HR PRN PRN Reason: Pain Scale 7 to 10 Last Admin: 07/18/18 14:10 Dose: 1 mg Documented by: Hydromorphone HCl (Dilaudid) 0.5 mg IVP Q3HR PRN PRN Reason: Pain Scale 4 to 6 Last Admin: 07/17/18 23:06 Dose: 0.5 mg Documented by: Sodium Chloride (Saline 0.9%) 1,000 mls @ 70 mls/hr IV .[id number] [facility] Last Admin: 07/17/18 22:38 Dose: Not Given Documented by: Vancomycin HCl 1,500 mg/ (Sodium Chloride) 250 mls @ 125 mls/hr IVPB Q8HR [facility] Last Admin: 07/18/18 11:17 Dose: 125 mls/hr Documented by: Losartan Potassium (Cozaar) 50 mg PO HS [facility] Last Admin: 07/17/18 21:58 Dose: 50 mg Documented by: Multivitamins (Theragran) 1 each PO DAILY@1200 [facility] Last Admin: 07/18/18 09:05 Dose: 1 each Documented by: Ondansetron HCl (Zofran) 4 mg IVP DAILY PRN PRN Reason: Nausea And Vomiting Pantoprazole Sodium (Protonix) 40 mg PO AC-BRKFST [facility] Senna/Docusate Sodium (Senokot-S) 2 each PO HS PRN PRN Reason: Constipation Objective - Vital Signs Vital signs: Vital Signs Temp 98.7 F 07/18/18 08:00 Pulse 61 07/18/18 08:00 Resp 18 07/18/18 08:00 BP 128/73 07/18/18 08:00 Pulse Ox 92 L 07/18/18 08:00 Intake & Output 07/17/18 07/18/18 07/18/18 18:59 06:59 18:59 Intake Total 1040 Balance 1040 Intake: Intake, IV Titration 560 Amount Sodium Chloride 0.9% 1, 560 000 ml @ 70 mls/hr IV . [id number] [facility] Rx#:[id number] Oral 480 Other: # Voids 3 1 - Exam GENERAL: Sitting up in bed, no acute distress HEENT: Conjunctivae normal. eyes normal. CARDIOVASCULAR: S1, S2 muffled. No murmur RESPIRATION: Breath sounds diminished in the bases. No rhonchi or crackles. No bronchial breathing. ABDOMEN: Soft, nontender . No guarding. no masses palpable.Bowel sounds heard. LEGS: No edema. no swelling PSYCHIATRY: Alert and oriented -3, mood and affect normal. NERVOUS SYSTEM: Cranial N 2-12 grossly normal. Moves all 4 limbs. No focal deficits. Skin: Right hand dressing clean dry and intact, wiggles right middle finger - Labs CBC & Chem 7: 07/16/18 17:30 07/18/18 07:16 Labs: Abnormal Lab Results - Last 24 Hours (Table) 07/18/18 Range/Units 07:16 Chloride 109 H (98-107) mmol/L Microbiology - Last 24 Hours (Table) 07/16/18 19:50 Acid Fast Bacilli Smear - Final Finger - Right Third Acid Fast Bacilli Culture - Preliminary 07/16/18 17:30 Blood Culture - Preliminary Blood No Growth after 24 hours 07/16/18 19:50 Gram Stain - Preliminary Finger - Right Third Wound Culture - Preliminary Presumptive Staph aureus 07/16/18 19:50 Gram Stain - Preliminary Finger - Right Third Tissue Culture - Preliminary Presumptive Staph aureus Assessment and Plan Assessment: ASSESSMENT Abscess of the right middle finger status post I and D Hypertension Hyperlipidemia Plan: Patient had I&D and currently on IV vancomycin for the abscess and septic arthritis of his right middle finger. Patient's blood pressure has been within normal limits so we'll continue with the current medication regimen. We'll follow the patient.
--- NOTE | 2018-07-19 15:14 | P.PN ---
Subjective Progress Note Date: 07/19/18 Principal diagnosis: Right middle finger abscess Covering for Dr. Venegas over the weekend Mr. Castañeda is a 63-year-old gentleman with the past medical history of osteoarthritis coming in with swelling and redness of the right middle finger after having a corticosteroid shot by Dr. Frost one week back. Patient had a repeat irrigation and Department of the right middle finger abscess this morning. He is lying comfortably in bed appears to be in no acute distress. Patient denies having any fevers chills or rigors. He denies having any chest pain or palpitations. No cough or difficulty in breathing. No dysuria or hematuria. No abdominal pain nausea vomiting or diarrhea. Patient's labs and medications have been reviewed. Active Medications Hydrocodone Bitart/Acetaminophen ([place] 5-325) 1 each PO Q4HR PRN PRN Reason: Pain Scale 1 to 5 Hydrocodone Bitart/Acetaminophen ([place] 5-325) 2 each PO Q4HR PRN PRN Reason: Pain Scale 6 to 10 Aspirin (Aspirin) 81 mg PO DAILY [facility] Last Admin: 07/19/18 07:11 Dose: 81 mg Documented by: Atorvastatin Calcium (Lipitor) 10 mg PO HS [facility] Last Admin: 07/18/18 20:21 Dose: 10 mg Documented by: Carvedilol (Coreg) 3.125 mg PO BID-W/MEALS [facility] Last Admin: 07/19/18 07:11 Dose: 3.125 mg Documented by: Hydromorphone HCl (Dilaudid) 0.25 mg IVP Q3HR PRN PRN Reason: Pain Scale 1 to 3 Hydromorphone HCl (Dilaudid) 1 mg IVP Q3HR PRN PRN Reason: Pain Scale 7 to 10 Last Admin: 07/19/18 14:51 Dose: 1 mg Documented by: Hydromorphone HCl (Dilaudid) 0.5 mg IVP Q3HR PRN PRN Reason: Pain Scale 4 to 6 Last Admin: 07/17/18 23:06 Dose: 0.5 mg Documented by: Sodium Chloride (Saline 0.9%) 1,000 mls @ 70 mls/hr IV .[id number] [facility] Last Admin: 07/19/18 03:29 Dose: 70 mls/hr Documented by: Vancomycin HCl 1,500 mg/ (Sodium Chloride) 250 mls @ 125 mls/hr IVPB Q8HR [facility] Last Admin: 07/19/18 07:11 Dose: 125 mls/hr Documented by: Nafcillin Sodium 12 gm/ (Dextrose/Water) 500 mls @ 21 mls/hr IVPB Q24H [facility] Stop: 07/22/18 09:29 Last Admin: 07/19/18 12:53 Dose: 21 mls/hr Documented by: Losartan Potassium (Cozaar) 50 mg PO HS [facility] Last Admin: 07/18/18 20:22 Dose: 50 mg Documented by: Multivitamins (Theragran) 1 each PO DAILY@1200 [facility] Last Admin: 07/19/18 07:11 Dose: 1 each Documented by: Ondansetron HCl (Zofran) 4 mg IVP DAILY PRN PRN Reason: Nausea And Vomiting Pantoprazole Sodium (Protonix) 40 mg PO AC-BRKFST [facility] Last Admin: 07/19/18 07:11 Dose: 40 mg Documented by: Senna/Docusate Sodium (Senokot-S) 2 each PO HS PRN PRN Reason: Constipation Last Admin: 07/18/18 20:22 Dose: 2 each Documented by: Objective - Vital Signs Vital signs: Vital Signs Temp 97.8 F 07/19/18 12:03 Pulse 52 L 07/19/18 12:32 Resp 16 07/19/18 12:32 BP 145/85 07/19/18 12:32 Pulse Ox 96 07/19/18 12:32 Intake & Output 07/18/18 07/19/18 07/19/18 18:59 06:59 18:59 Intake Total 1220 1160 600 Output Total 260 Balance 1220 1160 340 Intake: IV 600 Intake, IV Titration 560 1160 Amount Sodium Chloride 0.9% 1, 560 910 000 ml @ 70 mls/hr IV . [id number] [facility] Rx#:[id number] Vancomycin 1,500 mg In 250 Sodium Chloride 0.9% 250 ml @ 125 mls/hr IVPB Q8HR [facility] Rx#:[id number] Oral 660 Output: Urine 250 Estimated Blood Loss 10 Other: Voiding Method Toilet # Voids 1 2 3 - Exam GENERAL: Sitting up in bed, no acute distress HEENT: Conjunctivae normal. eyes normal. CARDIOVASCULAR: S1, S2 muffled. No murmur RESPIRATION: Breath sounds diminished in the bases. No rhonchi or crackles. No bronchial breathing. ABDOMEN: Soft, nontender . No guarding. no masses palpable.Bowel sounds heard. LEGS: No edema. no swelling PSYCHIATRY: Alert and oriented -3, mood and affect normal. NERVOUS SYSTEM: Cranial N 2-12 grossly normal. Moves all 4 limbs. No focal deficits. Skin: Right hand dressing clean dry and intact, wiggles right middle finger - Labs CBC & Chem 7: 07/19/18 06:57 07/19/18 06:57 Labs: Abnormal Lab Results - Last 24 Hours (Table) 07/19/18 Range/Units 06:57 RBC 3.89 L (4.30-5.90) m/uL Hgb 11.9 L (13.0-17.5) gm/dL Hct 34.1 L (39.0-53.0) % Plt Count 137 L (150-450) k/uL Microbiology - Last 24 Hours (Table) 07/16/18 17:30 Blood Culture - Preliminary Blood No Growth after 48 hours 07/16/18 19:50 Gram Stain - Final Finger - Right Third Wound Culture - Final Staphylococcus aureus 07/16/18 19:50 Gram Stain - Final Finger - Right Third Tissue Culture - Final Staphylococcus aureus Assessment and Plan Assessment: ASSESSMENT Abscess of the right middle finger status post I and D Hypertension Hyperlipidemia Plan: Patient had I&D done again today and he is on on IV vancomycin for the abscess and septic arthritis of his right middle finger. Patient's blood pressure has been within normal limits so we'll continue with the current medication regimen.
[2018-07-19] MEDS: SENNOSIDES-DOCUSATE SODIUM 1 EACH TAB PO PRN (15:54)
[2018-07-19] MEDS: LOSARTAN 50 MG TAB PO SCH (20:34)
[2018-07-19] MEDS: ATORVASTATIN 10 MG TAB PO SCH (20:34)
[2018-07-20] MEDS: VANCOMYCIN 1,500 MG in SODIUM CHLORIDE 0.9% 250 ML IVPB SCH ×2 (00:25→10:47)
[2018-07-20] MEDS: HYDROcodone/APAP 5-325MG 1 EACH TAB PO PRN ×5 (00:26→17:50)
[2018-07-20] MEDS ORDERED: LIDOCAINE 1% INJ 10MG/ML (20 ML MDV) SQ ONE (08:48)
[2018-07-20] MEDS: PANTOPRAZOLE 40 MG TABLET PO SCH (09:18)
[2018-07-20] MEDS: CARVEDILOL 3.125 MG TAB PO SCH ×2 (09:18→17:55)
[2018-07-20] MEDS: MULTIVITAMINS, THERA 1 EACH TAB PO SCH (09:18)
[2018-07-20] MEDS: ASPIRIN 81 MG PO SCH (09:18)
[2018-07-20] MEDS: DEXTROSE 5% IVPB SCH ×2 (09:26)
[2018-07-20] MEDS: WATER IVPB SCH ×2 (09:26)
[2018-07-20] MEDS: NAFCILLIN IVPB SCH ×2 (09:26)
--- NOTE | 2018-07-20 10:24 | P.PN ---
Subjective Progress Note Date: 07/20/18 This is 63-year-old gentleman who follows with Dr. Frost for osteoarthritis,developed a right middle finger infection. Followed up with Dr. Frost on 07/08/18. Received injections of the affected extremity; right third PIP and MCP as well as left second flexor tendon sheath. Developed significant pain, redness, edema extending across dorsal aspect of hand,with no open wounds, no drainage. Reevaluated by Dr. Frost, received antibiotic prescription for Keflex and [facility]. Patient did not begin antibiotics.evaluated by orthopedics,suspected septic arthri tis/abscess of the proximal interphalangeal joint,admitted to the hospital. Underwent I&D the right middle finger abscess,arthrotomy, irrigation and debridement of PIP joint,extensor tenosynovectomy. Tolerated procedure well. Afebrile, WBC 9.1,cultures pending, Gram stain reporting gram-positive cocci.VSS. 07/20/2018 underwent repeat I&D yesterday with orthopedic surgery. Tolerated procedure well. Pain currently controlled. PICC line placement scheduled for this morning.. Maintain IV antibiotics as per infectious disease. One tissue culture of 07/16 reporting MSSA, otherwise cultures pending. Afebrile, normal WBC. Complains of constipation. Objective - Vital Signs Vital signs: Vital Signs Temp 98.5 F 07/20/18 07:30 Pulse 56 L 07/20/18 07:30 Resp 17 07/20/18 02:45 BP 112/60 07/20/18 07:30 Pulse Ox 95 07/20/18 07:30 Intake & Output 07/19/18 07/20/18 07/20/18 18:59 06:59 18:59 Intake Total 600 250 Output Total 260 Balance 340 250 Intake: IV 600 Oral 250 Output: Urine 250 Estimated Blood Loss 10 Other: Voiding Method Toilet # Voids 3 1 - Exam VITAL SIGNS: [As above] GENERAL: Sitting up in bed, no acute distress, alert and oriented 3. HEENT: Conjunctivae normal. eyes normal. NECK: No JVD. No thyroid enlargement. No LNs CARDIOVASCULAR: S1, S2 muffled. No murmur RESPIRATION: Breath sounds diminished in the bases. No rhonchi or crackles. No wheezing ABDOMEN: Soft, nontender . No guarding. no masses palpable.positive Bowel sounds LEGS: No edema. no swelling NERVOUS SYSTEM: Cranial N 2-12 grossly normal. Moves all 4 limbs. No focal deficits. Skin: Right hand dressing clean dry and intact Microbiology 07/16/18 17:30 Blood Blood Culture - Preliminary No Growth after 72 hours 07/16/18 19:50 Finger - Right Third Gram Stain - Final 07/16/18 19:50 Finger - Right Third Wound Culture - Final Staphylococcus aureus 07/16/18 19:50 Finger - Right Third Gram Stain - Final 07/16/18 19:50 Finger - Right Third Tissue Culture - Final Staphylococcus aureus 07/16/18 19:50 Finger - Right Third Acid Fast Bacilli Smear - Final 07/16/18 19:50 Finger - Right Third Acid Fast Bacilli Culture - Preliminary 07/16/18 19:50 Finger - Right Third Fungal Culture - Preliminary 07/16/18 19:50 Finger - Right Third Anaerobic Culture - Preliminary 07/16/18 19:50 Finger - Right Third Anaerobic Culture - Preliminary 07/16/18 19:50 Skin Scrapings Skin Fungal Culture - Preliminary - Labs CBC & Chem 7: 07/19/18 06:57 07/19/18 06:57 Labs: Microbiology - Last 24 Hours (Table) 07/16/18 17:30 Blood Culture - Preliminary Blood No Growth after 72 hours Assessment and Plan Assessment: -Abscess of right middle finger, status post I&D,arthrotomy, irrigation and debridement X 2 of PIP joint,extensor tenosynovectomy. Gram stain /Tissue reporting MSSA -Septic arthritis of interphalangeal joint of the finger -right hand -Hyperlipidemia -Hypertension Plan: Continue on current medication regime ,monitoring and symptomatic treatment. Pain management and wound care as per [facility]. Follow cultures closely. Antibiotics as per ID. potential PICC line placement. GI prophylaxis in place/patient ambulatory. Further recommendations to follow. Thank you Dr. Garnica for allowing us to participate in the care of this nice gentleman. The impression and plan of care has been dictated as directed. : I performed a history and examination of this patient, discussed the same with the dictator. I agree with the dictator's note ,documented as a scribe. Any additional findings or plans will be noted.
[2018-07-20] MEDS: SODIUM CHLORIDE 0.9% 1,000 ML IV SCH ×2 (10:47→23:17)
[2018-07-20] MEDS: DOCUSATE 100 MG CAP PO SCH ×2 (11:45→21:26)
--- NOTE | 2018-07-20 13:16 | IR ---
PICC LINE PLACEMENT: HISTORY: Infection requiring long-term antibiotic therapy PROCEDURE: Ultrasound and fluoroscopic guidance of PICC line placement. COMPLICATIONS: None ANESTHESIA: 1. 1% Lidocaine locally. FINDINGS/TECHNIQUE: The procedure was explained to the patient. The risks, complications, benefits and alternatives were discussed and any questions were answered. Informed consent was obtained. The patient was placed supine on the fluoroscopic table and prepped and draped in the usual sterile fash ion. Utilizing a 21 gauge needle and sonographic and fluoroscopic guidance, access in the left basi lic vein was achieved and there is placement of a 0.018 guidewire. The vein is patent. A 4-F sheath was placed over the guidewire. The guidewire and dilator were removed and a 4-F. PICC line was plac ed through the sheath with the tip at the level of the SVC. The sheath was removed, the catheter was flushed and sutured into position. The patient was stable throughout the procedure and remained sta ble upon discharge from the Department of Radiology. The vein puncture was patent under ultrasound. A fitzgerald scale image was obtained to document patency of the vein punctured. All elements of the maximal barrier technique were utilized. FLUOROSCOPY TIME: 0.1 minutes, one image submitted IMPRESSION: Successful PICC line placement under ultrasound and fluoroscopic guidance.
[2018-07-20] MEDS: ceFAZolin IN SWFI 2 GM/20 ML SYRINGE IVP SCH ×2 (16:05→23:18)
--- NOTE | 2018-07-20 18:47 | P.PN ---
Subjective Progress Note Date: 07/20/18 Pt reports pain level stable and well controlled with orals. States he definitely needs the medicine after working on ROM. He feels it's moving a little better. Objective - Vital Signs Vital signs: Vital Signs Temp 97.6 F 07/20/18 13:53 Pulse 56 L 07/20/18 13:53 Resp 17 07/20/18 02:45 BP 140/77 07/20/18 13:53 Pulse Ox 97 07/20/18 13:53 Intake & Output 07/19/18 07/20/18 07/20/18 18:59 06:59 18:59 Intake Total 600 250 250 Output Total 260 Balance 340 250 250 Intake: IV 600 Intake, IV Titration 250 Amount Vancomycin 1,500 mg In 250 Sodium Chloride 0.9% 250 ml @ 125 mls/hr IVPB Q8HR [facility] Rx#:[id number] Oral 250 Output: Urine 250 Estimated Blood Loss 10 Other: Voiding Method Toilet # Voids 3 1 - Exam Right hand: The dressings were removed. Drains in place. Ulnar drain removed. Mild serosanguinous output on dressings. Not much fluid expressed from wounds with pressure or PROM. Finger still quite enlarged and edematous but not frankly fluctuant. Localized erythema around PIP joint and proximal phalanx. - Labs CBC & Chem 7: 07/19/18 06:57 07/19/18 06:57 Labs: Microbiology - Last 24 Hours (Table) 07/16/18 19:50 Gram Stain - Final Finger - Right Third Wound Culture - Final Staphylococcus aureus 07/16/18 17:30 Blood Culture - Preliminary Blood No Growth after 72 hours Assessment and Plan Assessment: 1. POD #1 & 4 s/p incision and drainage of right middle finger abscess with PIP arthrotomy and extensor tenosynovectomy 2. MSSA septic arthritis of the right middle finger proximal interphalangeal (PIP) joint with suppurative extensor tenosynovitis (1) Abscess of right middle finger Current Visit: Yes Status: Acute Priority: Medium Code(s): L02.511 - CUTANEOUS ABSCESS OF RIGHT HAND SNOMED Code(s): 91706373 Plan: New dressings applied. Reinforce as needed. Do not remove drains. Encourage AROM/PROM of middle finger and hand. Ok to use as tolerated. PICC line placed. Continue cefazolin per Dr. Cuenca recommendations Will add toradol for additional pain/anti-inflammatory benefit and change to BID mobic at discharge I will re-eval and change dressings tomorrow. If continued clinical improvement, likely DC home tomorrow afternoon.
[2018-07-20] MEDS ORDERED: PNEUMOCOCCAL VACC-PNEUMOVAX 23 25 MCG/0.5 ML VIAL IM ONE (20:00)
[2018-07-20] MEDS: ATORVASTATIN 10 MG TAB PO SCH (21:26)
[2018-07-20] MEDS: LOSARTAN 50 MG TAB PO SCH (21:26)
[2018-07-20] MEDS: KETOROLAC 30 MG/ML 1 ML VIAL IVP PRN (21:27)
--- NOTE | 2018-07-20 23:11 | P.PN ---
Subjective Progress Note Date: 07/20/18 This is a 63-year-old male patient gives history of having injections done to bilateral hands and Dr. Frost on July 08 for osteoarthritis. Patient received a right third PIP and right third MCP injections and left second flexor tendon sheath injection. The patient developed redness to the right middle finger with swelling and was reevaluated by DrChang: Tim. She referred him to Dr. Lema and patient was brought in to [facility] underwent I&D yesterday finding right middle finger abscess, PIP superlative extensor tenosynovitis. Patient was provided a prescription for Keflex by Dr. Frost but had not started taking this. Patient stated that he had extensive swelling and redness to the middle finger that extended across the dorsal surface of the hand. 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 He believes his tetanus is up-to-date. Patient has been afebrile, white count 9.1, creatinine 0.84, CRP 16.6, sed rate 11. Cultures are in progress. 07/20/2018 patient is feeling somewhat better today. With the surgical intervention he is having some improvement. Passive range of motion is improving with less pain. Is still having significant discomfort. No evidence of any renal failure. MSSA isolated. Objective - Vital Signs Vital signs: Vital Signs Temp 98.5 F 07/20/18 19:04 Pulse 63 07/20/18 19:04 Resp 16 07/20/18 19:04 BP 141/80 07/20/18 19:04 Pulse Ox 96 07/20/18 19:04 Intake & Output 07/20/18 07/20/18 07/21/18 06:59 18:59 06:59 Intake Total 250 250 Balance 250 250 Intake: Intake, IV Titration 250 Amount Vancomycin 1,500 mg In 250 Sodium Chloride 0.9% 250 ml @ 125 mls/hr IVPB Q8HR [facility] Rx#:[id number] Oral 250 Other: Voiding Method Toilet Toilet # Voids 1 - Exam Gen: This is a 63-year-old male. He is resting in bed and appears to become 12 and in no acute distress. HEENT: Head is atraumatic, normocephalic. Pupils equal, round. Sclerae is anicteric. Conjunctiva pink. Mucous members of the mouth are moist. No thrush is noted. Dentition is in good order. No erythema edema to the oropharynx. NECK: Supple. No JVD. No lymphadenopathy. No thyromegaly. LUNGS: Clear to auscultation. No wheezes or rhonchi. No intercostal ret ractions. HEART: Regular rate and rhythm. No murmur. ABDOMEN: Soft. Bowel sounds are present. No masses. No tenderness. EXTREMITIES: No pedal edema. No calf tenderness. Dorsalis pedis +2 bilateral ly. To the right hand,dressing in place without drainage noted NEUROLOGICAL: Patient is awake, alert and oriented x3. - Labs CBC & Chem 7: 07/19/18 06:57 07/19/18 06:57 Labs: Microbiology - Last 24 Hours (Table) 07/16/18 17:30 Blood Culture - Preliminary Blood No Growth after 96 hours 07/16/18 19:50 Anaerobic Culture - Final Finger - Right Third 07/16/18 19:50 Anaerobic Culture - Final Finger - Right Third 07/16/18 19:50 Gram Stain - Final Finger - Right Third Wound Culture - Final Staphylococcus aureus Laboratory Results WBC 6.1 k/uL (3.8-10.6) 07/19/18 06:57 RBC 3.89 m/uL (4.30-5.90) L 07/19/18 06:57 Hgb 11.9 gm/dL (13.0-17.5) L 07/19/18 06:57 Hct 34.1 % (39.0-53.0) L 07/19/18 06:57 MCV 87.8 fL (80.0-100.0) 07/19/18 06:57 MCH 30.6 pg (25.0-35.0) 07/19/18 06:57 MCHC 34.9 g/dL (31.0-37.0) 07/19/18 06:57 RDW 13.1 % (11.5-15.5) 07/19/18 06:57 Plt Count 137 k/uL (150-450) L 07/19/18 06:57 Neutrophils % 61 % 07/19/18 06:57 Lymphocytes % 22 % 07/19/18 06:57 Monocytes % 10 % 07/19/18 06:57 Eosinophils % 4 % 07/19/18 06:57 Basophils % 1 % 07/19/18 06:57 Neutrophils # 3.7 k/uL (1.3-7.7) 07/19/18 06:57 Lymphocytes # 1.3 k/uL (1.0-4.8) 07/19/18 06:57 Monocytes # 0.6 k/uL (0-1.0) 07/19/18 06:57 Eosinophils # 0.3 k/uL (0-0.7) 07/19/18 06:57 Basophils # 0.0 k/uL (0-0.2) 07/19/18 06:57 ESR 11 mm/hr (0-15) 07/16/18 17:30 PT 10.3 sec (9.0-12.0) 07/16/18 17:30 INR 1.0 (<1.2) 07/16/18 17:30 APTT 26.3 sec (22.0-30.0) 07/16/18 17:30 Sodium 140 mmol/L (137-145) 07/19/18 06:57 Potassium 3.9 mmol/L (3.5-5.1) 07/19/18 06:57 Chloride 107 mmol/L (98-107) 07/19/18 06:57 Carbon Dioxide 27 mmol/L (22-30) 07/19/18 06:57 Anion Gap 6 mmol/L 07/19/18 06:57 BUN 13 mg/dL (9-20) 07/19/18 06:57 Creatinine 0.77 mg/dL (0.66-1.25) 07/19/18 06:57 Est GFR (CKD-EPI)AfAm >90 (>60 ml/min/1.73 sqM) 07/19/18 06:57 Est GFR (CKD-EPI)NonAf >90 (>60 ml/min/1.73 sqM) 07/19/18 06:57 Glucose 85 mg/dL (74-99) 07/19/18 06:57 Calcium 8.9 mg/dL (8.4-10.2) 07/19/18 06:57 Total Bilirubin 0.6 mg/dL (0.2-1.3) 07/16/18 17:30 AST 19 U/L (17-59) 07/16/18 17:30 ALT 29 U/L (21-72) 07/16/18 17:30 Alkaline Phosphatase 54 U/L (38-126) 07/16/18 17:30 C-Reactive Protein 16.6 mg/L (<10.0) H 07/16/18 17:30 Total Protein 7.0 g/dL (6.3-8.2) 07/16/18 17:30 Albumin 4.4 g/dL (3.5-5.0) 07/16/18 17:30 Vancomycin Trough 15.8 ug/mL 07/18/18 07:16 Microbiology 07/16/18 17:30 Blood Blood Culture - Preliminary No Growth after 96 hours 07/16/18 19:50 Finger - Right Third Anaerobic Culture - Final 07/16/18 19:50 Finger - Right Third Anaerobic Culture - Final 07/16/18 19:50 Finger - Right Third Gram Stain - Final 07/16/18 19:50 Finger - Right Third Wound Culture - Final Staphylococcus aureus 07/16/18 19:50 Finger - Right Third Gram Stain - Final 07/16/18 19:50 Finger - Right Third Tissue Culture - Final Staphylococcus aureus 07/16/18 19:50 Finger - Right Third Acid Fast Bacilli Smear - Final 07/16/18 19:50 Finger - Right Third Acid Fast Bacilli Culture - Preliminary 07/16/18 19:50 Finger - Right Third Fungal Culture - Preliminary 07/16/18 19:50 Skin Scrapings Skin Fungal Culture - Preliminary Assessment and Plan (1) Septic arthritis of interphalangeal joint of finger of right hand Narrative/Plan: Pleasant 63-year-old male who has arthritis and underwent an injection with steroids to multiple joints including the right hand third finger interphalangeal joint. Abdomen had rapid increase of pain and swelling without evidence of an abscess and the tenosynovitis. Despite outpatient by therapy with Keflex he worsened and is brought in the hospital. This time a consult vancomycin was advised. Patient, taken to the operating room is had incision and drainage. Given that this is a hand joint infection and tenosynovitis will likely be going home on a 4-6 week course of intravenous antibiotic therapy likely with vancomycin but cultures will help decide the final antibiotic at time of discharge. PICC line is being requested to be placed Friday before is discharged home. 07/20/2018 the patient is now had a second debridement of the right hand for the Tenosynovitis and septic arthritis. No showing some improvement. MSSA has been isolated antibiotic therapy is transitioned to cefazolin being planned for home. IV access has been placed. Likely discharge in the morning. Toradol for enhanced pain control Current Visit: Yes Status: Acute Code(s): M00.9 - PYOGENIC ARTHRITIS, UNSPECIFIED SNOMED Code(s): 594969878 (2) MSSA (methicillin susceptible Staphylococcus aureus) infection Current Visit: Yes Status: Acute Code(s): A49.01 - METHICILLIN SUSCEP STAPH INFECTION, UNSP SITE SNOMED Code(s): 501315144
[2018-07-21] MEDS: HYDROcodone/APAP 5-325MG 1 EACH TAB PO PRN (05:57)
[2018-07-21 08:07] VITALS: BP 141/75; PULSE 61; RESP 16; TEMP 98.5
[2018-07-21] MEDS: ceFAZolin IN SWFI 2 GM/20 ML SYRINGE IVP SCH (08:21)
[2018-07-21] MEDS: MULTIVITAMINS, THERA 1 EACH TAB PO SCH (08:40)
[2018-07-21] MEDS: ASPIRIN 81 MG PO SCH (08:40)
[2018-07-21] MEDS: CARVEDILOL 3.125 MG TAB PO SCH (08:40)
[2018-07-21] MEDS: KETOROLAC 30 MG/ML 1 ML VIAL IVP PRN (08:40)
[2018-07-21] MEDS: PANTOPRAZOLE 40 MG TABLET PO SCH (08:40)
[2018-07-21] MEDS: DOCUSATE 100 MG CAP PO SCH (08:40)
[2018-07-21] MEDS: SODIUM CHLORIDE 0.9% 1,000 ML IV SCH (11:06)
--- NOTE | 2018-07-21 13:44 | P.PN ---
Subjective Progress Note Date: 07/21/18 Chart reviewed. Patient seen at bedside. He states pain level is improving. He reports improved ROM. Objective - Vital Signs Vital signs: Vital Signs Temp 98.5 F 07/21/18 07:05 Pulse 61 07/21/18 07:05 Resp 16 07/21/18 07:05 BP 141/75 07/21/18 07:05 Pulse Ox 96 07/21/18 07:05 Intake & Output 07/20/18 07/21/18 07/21/18 18:59 06:59 18:59 Intake Total 250 Balance 250 Intake: Intake, IV Titration 250 Amount Vancomycin 1,500 mg In 250 Sodium Chloride 0.9% 250 ml @ 125 mls/hr IVPB Q8HR [facility] Rx#:[id number] Other: Voiding Method Toilet Toilet Toilet # Voids 1 - Exam Right hand: The dressings were removed. Drains in place with moderate, mostly serous drainage on dressings. Drains were removed. A small amount of thin, cloudy fluid was expressed from each wound. Proximal and middle phalanges hyperemic but not erythematous. No fluctuance. He is able to perform limited AROM due to swelling. PIP PROM from 20-80 with only mild discomfort. - Labs CBC & Chem 7: 07/19/18 06:57 07/19/18 06:57 Labs: Microbiology - Last 24 Hours (Table) 07/16/18 17:30 Blood Culture - Preliminary Blood No Growth after 96 hours 07/16/18 19:50 Anaerobic Culture - Final Finger - Right Third 07/16/18 19:50 Anaerobic Culture - Final Finger - Right Third 07/16/18 19:50 Gram Stain - Final Finger - Right Third Wound Culture - Final Staphylococcus aureus Assessment and Plan Assessment: 1. POD #2 & 5 s/p incision and drainage of right middle finger abscess with PIP arthrotomy and extensor tenosynovectomy 2. MSSA septic arthritis of the right middle finger proximal interphalangeal (PIP) joint with suppurative extensor tenosynovitis (1) Abscess of right middle finger Current Visit: Yes Status: Acute Priority: Medium Code(s): L02.511 - CUTANEOUS ABSCESS OF RIGHT HAND SNOMED Code(s): 12168057 Plan: The finger is clinically improving. DC home today. Continue AROM/PROM of middle finger and hand. Daily dressing changes. Will continue outpatient IV abx via PICC line Pt to see me in office on 07/24/[address] Cuenca as scheduled Adithya Terrell D.O. [facility]
--- NOTE | 2018-07-21 14:09 | P.DS ---
Providers Date of admission: 07/16/18 17:13 Expected date of discharge: 07/21/18 Attending physician: Adithya Terrell DO Consults: 07/16/18 17:07 Consult Physician Routine Consulting Provider: Curtis Cuenca Consult Reason/Comments: possible septic arthritis, I&D RMF today. Do you want consulting provider notified?: Yes 07/16/18 17:11 Consult Physician Routine Consulting Provider: Stephen Venegas Consult Reason/Comments: medical management Do you want consulting provider notified?: Yes Primary care physician: Stated None - Discharge Diagnosis(es) (1) Abscess of right middle finger The patient is a pleasant 63-year-old male who was admitted for surgical treatment of an acute infection of his right middle finger secondary to an intra-articular steroid injection. Current Visit: Yes Status: Acute Priority: Medium Hospital Course: The patient underwent urgent incision and drainage of right middle finger abscess with PIP arthrotomy and extensor tenosynovectomy on 07/16/2018. He was started on empiric vancomycin. The finger showed interval worsening and the patient was taken for repeat irrigation and debridement on 07/19/2018. Intraoperative cultures from the index surgery were positive for pansensitive MSSA. He was evaluated by the infectious disease team and placed on IV cefazolin. A PICC line was placed. On day of discharge, the patient's finger shows improved edema and appropriate postoperative drainage. His pain is well-controlled and his vital signs are stable. He is deemed fit for discharge home. Procedures: 1. Incision and drainage of right middle finger abscess with PIP arthrotomy and extensor tenosynovectomy 2. Irrigation and debridement of right middle finger abscess with MCP arthrotomy and extensor tenosynovectomy 3. PICC line placement Patient Condition at Discharge: Good Plan - Discharge Summary Discharge Rx Participant: Yes New Discharge Prescriptions: New ceFAZolin [Kefzol] 2 gm IVP Q8HR #90 dose Meloxicam 7.5 mg PO BID PRN #60 tablet PRN Reason: Pain HYDROcodone/APAP 5-325MG [[place] 5-325] 1 tab PO Q4HR PRN #25 tab PRN Reason: Pain No Action Aspirin 81 mg PO DAILY Multivitamins, Thera [Multivitamin (formulary)] 1 tab PO DAILY Carvedilol [Coreg] 3.125 mg PO BID Atorvastatin [Lipitor] 10 mg PO HS Losartan Potassium 50 mg PO HS Sildenafil [Revatio] 20 mg PO DAILY HYDROcodone/APAP 7.5-325MG [[place] 7.5-325] 1 tab PO Q4H PRN 3 Days #18 tab PRN Reason: Pain Docusate [Colace] 100 mg PO BID #30 capsule Discharge Medication List Aspirin 81 mg PO DAILY 04/14/14 [History] Multivitamins, Thera [Multivitamin (formulary)] 1 tab PO DAILY 12/06/16 [History] Atorvastatin [Lipitor] 10 mg PO HS 06/05/18 [History] Carvedilol [Coreg] 3.125 mg PO BID 06/05/18 [History] Losartan Potassium 50 mg PO HS 06/05/18 [History] Sildenafil [Revatio] 20 mg PO DAILY 06/10/18 [History] Docusate [Colace] 100 mg PO BID #30 capsule 06/12/18 [Rx] ceFAZolin [Kefzol] 2 gm IVP Q8HR #90 dose 07/20/18 [Rx] HYDROcodone/APAP 5-325MG [[place] 5-325] 1 tab PO Q4HR PRN #25 tab 07/21/18 [Rx] Meloxicam 7.5 mg PO BID PRN #60 tablet 07/21/18 [Rx] Follow up Appointment(s)/Referral(s): Curtis Cuenca MD [STAFF PHYSICIAN] - 3 Weeks [facility],Infusion [NON-STAFF] - As Needed Adithya Terrell DO [Medical Doctor] - 3 Days (Friday) [facility] Visiting Nurse, [NON-STAFF] - As Needed Ambulatory/Diagnostic Orders: Basic Metabolic Panel [LAB.AMB] Location: None Selected Complete Blood Count w/diff [LAB.AMB] Location: None Selected Miscellaneous Lab Order [LAB.AMB] Location: None Selected Activity/Diet/Wound Care/Special Instructions: Orthopedic Postoperative Discharge Instructions Use norco as directed. Wean off and transition to over the counter pain medication as soon as possible. No strenuous/forceful use of the hand. No lifting/gripping/pushing/pulling. Ok to use hand for light activities (eating/dressing/etc). Change dressings as needed (at least once a day). Ok to shower and get incision wet with soap and water. Do not soak incision. No lotions or ointments on incision. Perform finger [id number] exercises several times daily. Continue IV antibiotics per Dr. Cuenca instructions. Call as soon as possible to schedule a follow-up appointment with Dr. Terrell to be seen on 07/24/18. Discharge Disposition: HOME WITH HOME HEALTH SERVICES
--- NOTE | 2018-07-21 15:59 | P.PN ---
Subjective Progress Note Date: 07/21/18 This is 63-year-old gentleman who follows with Dr. Frost for osteoarthritis,developed a right middle finger infection. Followed up with Dr. Frost on 07/08/18. Received injections of the affected extremity; right third PIP and MCP as well as left second flexor tendon sheath. Developed significant pain, redness, edema extending across dorsal aspect of hand,with no open wounds, no drainage. Reevaluated by Dr. Frost, received antibiotic prescription for Keflex and [facility]. Patient did not begin antibiotics.evaluated by orthopedics,suspected septic arthri tis/abscess of the proximal interphalangeal joint,admitted to the hospital. Underwent I&D the right middle finger abscess,arthrotomy, irrigation and debridement of PIP joint,extensor tenosynovectomy. Tolerated procedure well. Afebrile, WBC 9.1,cultures pending, Gram stain reporting gram-positive cocci.VSS. 07/20/2018 underwent repeat I&D yesterday with orthopedic surgery. Tolerated procedure well. Pain currently controlled. PICC line placement scheduled for this morning.. Maintain IV antibiotics as per infectious disease. One tissue culture of 07/16 reporting MSSA, otherwise cultures pending. Afebrile, normal WBC. Complains of constipation. 07/21/2018 significant Clinical improvement. Less edema, less tenderness, able to move third finger easier. PICC line placed yesterday. Maintained on IV antibiotics as per infectious disease. Denies chest pain, palpitations or increasing shortness of breath. Afebrile. Objective - Vital Signs Vital signs: Vital Signs Temp 98.1 F 07/21/18 01:00 Pulse 60 07/21/18 01:00 Resp 15 07/21/18 01:00 BP 125/75 07/21/18 01:00 Pulse Ox 95 07/21/18 01:00 Intake & Output 07/20/18 07/21/18 07/21/18 18:59 06:59 18:59 Intake Total 250 Balance 250 Intake: Intake, IV Titration 250 Amount Vancomycin 1,500 mg In 250 Sodium Chloride 0.9% 250 ml @ 125 mls/hr IVPB Q8HR [facility] Rx#:[id number] Other: Voiding Method Toilet Toilet # Voids 1 - Exam VITAL SIGNS: [As above] GENERAL: Sitting up in bed, no acute distress, alert and oriented 3. HEENT: Conjunctivae normal. eyes normal. NECK: No JVD. No thyroid enlargement. No LNs CARDIOVASCULAR: S1, S2 muffled. No murmur RESPIRATION: Breath sounds diminished in the bases. No rhonchi or crackles. No wheezing ABDOMEN: Soft, nontender . No guarding. no masses palpable.positive Bowel sounds LEGS: No edema. no swelling NERVOUS SYSTEM: Cranial N 2-12 grossly normal. Moves all 4 limbs. No focal de ficits. Skin: Right hand dressing clean dry and intact. Less edema, less tenderness, moving third finger more freely. Positive sensation, positive fine motor. Microbiology 07/16/18 17:30 Blood Blood Culture - Preliminary No Growth after 96 hours 07/16/18 19:50 Finger - Right Third Anaerobic Culture - Final 07/16/18 19:50 Finger - Right Third Anaerobic Culture - Final 07/16/18 19:50 Finger - Right Third Gram Stain - Final 07/16/18 19:50 Finger - Right Third Wound Culture - Final Staphylococcus aureus 07/16/18 19:50 Finger - Right Third Gram Stain - Final 07/16/18 19:50 Finger - Right Third Tissue Culture - Final Staphylococcus aureus 07/16/18 19:50 Finger - Right Third Acid Fast Bacilli Smear - Final 07/16/18 19:50 Finger - Right Third Acid Fast Bacilli Culture - Preliminary 07/16/18 19:50 Finger - Right Third Fungal Culture - Preliminary 07/16/18 19:50 Skin Scrapings Skin Fungal Culture - Preliminary - Labs CBC & Chem 7: 07/19/18 06:57 07/19/18 06:57 Labs: Microbiology - Last 24 Hours (Table) 07/16/18 17:30 Blood Culture - Preliminary Blood No Growth after 96 hours 07/16/18 19:50 Anaerobic Culture - Final Finger - Right Third 07/16/18 19:50 Anaerobic Culture - Final Finger - Right Third 07/16/18 19:50 Gram Stain - Final Finger - Right Third Wound Culture - Final Staphylococcus aureus Assessment and Plan Assessment: -Abscess of right middle finger, status post I&D,arthrotomy, irrigation and debridement X 2 of PIP joint,extensor tenosynovectomy. Isolated MSSA -Septic arthritis of interphalangeal joint of the finger -right hand -Hyperlipidemia -Hypertension Plan: Continue on current medication regime ,monitoring and symptomatic treatment. Wound care/pain management as per primary.antibiotics as per ID .discharge planning in progress for today as per orthopedic surgery. Further recommendations to follow. The impression and plan of care has been dictated as directed. : I performed a history and examination of this patient, discussed the same with the dictator. I agree with the dictator's note ,documented as a scribe. Any additional findings or plans will be noted.
--- NOTE | 2018-07-21 16:25 | P.PN ---
Subjective Progress Note Date: 07/21/18 This is a 63-year-old male patient gives history of having injections done to bilateral hands and Dr. Frost on July 08 for osteoarthritis. Patient received a right third PIP and right third MCP injections and left second flexor tendon sheath injection. The patient developed redness to the right middle finger with swelling and was reevaluated by DrChang: Tim. She referred him to Dr. Lema and patient was brought in to [facility] underwent I&D yesterday finding right middle finger abscess, PIP superlative extensor tenosynovitis. Patient was provided a prescription for Keflex by Dr. Frost but had not started taking this. Patient stated that he had extensive swelling and redness to the middle finger that extended across the dorsal surface of the hand. 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 He believes his tetanus is up-to-date. Patient has been afebrile, white count 9.1, creatinine 0.84, CRP 16.6, sed rate 11. Cultures are in progress. 07/20/2018 patient is feeling somewhat better today. With the surgical intervention he is having some improvement. Passive range of motion is improving with less pain. Is still having significant discomfort. No evidence of any renal failure. MSSA isolated. 07/21/2018 patient is feeling better today, after the second surgery his range of motion is improved and his pain is improved. Is having no fever or chills. Is tolerating antibiotic therapy well. No diarrhea. Objective - Vital Signs Vital signs: Vital Signs Temp 98.5 F 07/21/18 07:05 Pulse 61 07/21/18 07:05 Resp 16 07/21/18 07:05 BP 141/75 07/21/18 07:05 Pulse Ox 96 07/21/18 07:05 Intake & Output 07/20/18 07/21/18 07/21/18 18:59 06:59 18:59 Intake Total 250 Balance 250 Intake: Intake, IV Titration 250 Amount Vancomycin 1,500 mg In 250 Sodium Chloride 0.9% 250 ml @ 125 mls/hr IVPB Q8HR [facility] Rx#:[id number] Other: Voiding Method Toilet Toilet Toilet # Voids 1 - Exam Gen: This is a 63-year-old male. He is resting in bed and appears to become 12 and in no acute distress. HEENT: Head is atraumatic, normocephalic. Pupils equal, round. Sclerae is anicteric. Conjunctiva pink. Mucous members of the mouth are moist. No thrush is noted. Dentition is in good order. No erythema edema to the oropharynx. NECK: Supple. No JVD. No lymphadenopathy. No thyromegaly. LUNGS: Clear to auscultation. No wheezes or rhonchi. No intercostal retrac tions. HEART: Regular rate and rhythm. No murmur. ABDOMEN: Soft. Bowel sounds are present. No masses. No tenderness. EXTREMITIES: No pedal edema. No calf tenderness. Dorsalis pedis +2 bilaterally. To the right hand,dressing in place without drainage noted NEUROLOGICAL: Patient is awake, alert and oriented x3. - Labs CBC & Chem 7: 07/19/18 06:57 07/19/18 06:57 Labs: Microbiology - Last 24 Hours (Table) 07/16/18 17:30 Blood Culture - Preliminary Blood No Growth after 96 hours 07/16/18 19:50 Anaerobic Culture - Final Finger - Right Third 07/16/18 19:50 Anaerobic Culture - Final Finger - Right Third 07/16/18 19:50 Gram Stain - Final Finger - Right Third Wound Culture - Final Staphylococcus aureus Laboratory Results WBC 6.1 k/uL (3.8-10.6) 07/19/18 06:57 RBC 3.89 m/uL (4.30-5.90) L 07/19/18 06:57 Hgb 11.9 gm/dL (13.0-17.5) L 07/19/18 06:57 Hct 34.1 % (39.0-53.0) L 07/19/18 06:57 MCV 87.8 fL (80.0-100.0) 07/19/18 06:57 MCH 30.6 pg (25.0-35.0) 07/19/18 06:57 MCHC 34.9 g/dL (31.0-37.0) 07/19/18 06:57 RDW 13.1 % (11.5-15.5) 07/19/18 06:57 Plt Count 137 k/uL (150-450) L 07/19/18 06:57 Neutrophils % 61 % 07/19/18 06:57 Lymphocytes % 22 % 07/19/18 06:57 Monocytes % 10 % 07/19/18 06:57 Eosinophils % 4 % 07/19/18 06:57 Basophils % 1 % 07/19/18 06:57 Neutrophils # 3.7 k/uL (1.3-7.7) 07/19/18 06:57 Lymphocytes # 1.3 k/uL (1.0-4.8) 07/19/18 06:57 Monocytes # 0.6 k/uL (0-1.0) 07/19/18 06:57 Eosinophils # 0.3 k/uL (0-0.7) 07/19/18 06:57 Basophils # 0.0 k/uL (0-0.2) 07/19/18 06:57 ESR 11 mm/hr (0-15) 07/16/18 17:30 PT 10.3 sec (9.0-12.0) 07/16/18 17:30 INR 1.0 (<1.2) 07/16/18 17:30 APTT 26.3 sec (22.0-30.0) 07/16/18 17:30 Sodium 140 mmol/L (137-145) 07/19/18 06:57 Potassium 3.9 mmol/L (3.5-5.1) 07/19/18 06:57 Chloride 107 mmol/L (98-107) 07/19/18 06:57 Carbon Dioxide 27 mmol/L (22-30) 07/19/18 06:57 Anion Gap 6 mmol/L 07/19/18 06:57 BUN 13 mg/dL (9-20) 07/19/18 06:57 Creatinine 0.77 mg/dL (0.66-1.25) 07/19/18 06:57 Est GFR (CKD-EPI)AfAm >90 (>60 ml/min/1.73 sqM) 07/19/18 06:57 Est GFR (CKD-EPI)NonAf >90 (>60 ml/min/1.73 sqM) 07/19/18 06:57 Glucose 85 mg/dL (74-99) 07/19/18 06:57 Calcium 8.9 mg/dL (8.4-10.2) 07/19/18 06:57 Total Bilirubin 0.6 mg/dL (0.2-1.3) 07/16/18 17:30 AST 19 U/L (17-59) 07/16/18 17:30 ALT 29 U/L (21-72) 07/16/18 17:30 Alkaline Phosphatase 54 U/L (38-126) 07/16/18 17:30 C-Reactive Protein 16.6 mg/L (<10.0) H 07/16/18 17:30 Total Protein 7.0 g/dL (6.3-8.2) 07/16/18 17:30 Albumin 4.4 g/dL (3.5-5.0) 07/16/18 17:30 Vancomycin Trough 15.8 ug/mL 07/18/18 07:16 Virus Source Right Middle Finger 07/16/18 19:50 Viral Test No Virus Detected 07/16/18 19:50 Virus Analysis Interp See comment 07/16/18 19:50 Microbiology 07/16/18 17:30 Blood Blood Culture - Preliminary No Growth after 96 hours 07/16/18 19:50 Finger - Right Third Anaerobic Culture - Final 07/16/18 19:50 Finger - Right Third Anaerobic Culture - Final 07/16/18 19:50 Finger - Right Third Gram Stain - Final 07/16/18 19:50 Finger - Right Third Wound Culture - Final Staphylococcus aureus 07/16/18 19:50 Finger - Right Third Gram Stain - Final 07/16/18 19:50 Finger - Right Third Tissue Culture - Final Staphylococcus aureus 07/16/18 19:50 Finger - Right Third Acid Fast Bacilli Smear - Final 07/16/18 19:50 Finger - Right Third Acid Fast Bacilli Culture - Preliminary 07/16/18 19:50 Finger - Right Third Fungal Culture - Preliminary 07/16/18 19:50 Skin Scrapings Skin Fungal Culture - Preliminary Assessment and Plan (1) Septic arthritis of interphalangeal joint of finger of right hand Narrative/Plan: Pleasant 63-year-old male who has arthritis and underwent an injection with steroids to multiple joints including the right hand third finger interphalangeal joint. Abdomen had rapid increase of pain and swelling without evidence of an abscess and the tenosynovitis. Despite outpatient by therapy with Keflex he worsened and is brought in the hospital. This time a consult vancomycin was advised. Patient, taken to the operating room is had incision and drainage. Given that this is a hand joint infection and tenosynovitis will likely be going home on a 4-6 week course of intravenous antibiotic therapy likely with vancomycin but cultures will help decide the final antibiotic at time of discharge. PICC line is being requested to be placed Friday before is discharged home. 07/20/2018 the patient is now had a second debridement of the right hand for the Tenosynovitis and septic arthritis. No showing some improvement. MSSA has been isolated antibiotic therapy is transitioned to cefazolin being planned for home. IV access has been placed. Likely discharge in the morning. Toradol for enhanced pain control 07/21/2018 the patient has improvement after the second debridement of the right hand third finger tenosynovitis and septic arthritis. Pain is better controlled. Range of motion is improving. Patient will be discharged home today, his PICC line has been placed. No vomiting office in the next few weeks. He'll receive at least 4 weeks of intravenous antibiotic therapy with Ancef 2 g IV piggyback every 8 hours. Weekly blood work is been requested Status: Acute Code(s): M00.9 - PYOGENIC ARTHRITIS, UNSPECIFIED SNOMED Code(s): 775271038 (2) MSSA (methicillin susceptible Staphylococcus aureus) infection Status: Acute Code(s): A49.01 - METHICILLIN SUSCEP STAPH INFECTION, UNSP SITE SNOMED Code(s): 423832307
== END 2018-07-21 15:05 | disposition home health service (06) | DRG 506 ==
LOC: 4SSUR 17:13
PROVIDERS: ADMIT Orthopaedic Surgery; ATTEND Orthopaedic Surgery
PROC: 0R9W0ZZ Drainage of Right Finger Phalangeal Joint, Open Approach (ICD-10-PCS; 2018-07-16)
PROC: 0LB70ZZ Excision of Right Hand Tendon, Open Approach (ICD-10-PCS; principal; 2018-07-16 17:49)
PROC: 0R9W0ZZ Drainage of Right Finger Phalangeal Joint, Open Approach (ICD-10-PCS; 2018-07-19)
PROC: 0LB70ZZ Excision of Right Hand Tendon, Open Approach (ICD-10-PCS; 2018-07-19)
PROC: 02HV33Z Insertion of Infusion Device into Superior Vena Cava, Percutaneous Approach (ICD-10-PCS; 2018-07-20)
DX: M00.00 Staphylococcal arthritis, unspecified joint (principal); L02.511 Cutaneous abscess of right hand; M19.90 Unspecified osteoarthritis, unspecified site; I10 Essential (primary) hypertension; E78.5 Hyperlipidemia, unspecified; F41.9 Anxiety disorder, unspecified; M65.9 Synovitis and tenosynovitis, unspecified; F10.21 Alcohol dependence, in remission; K58.9 Irritable bowel syndrome, unspecified; G43.909 Migraine, unspecified, not intractable, without status migrainosus; Z79.82 Long term (current) use of aspirin; Z79.899 Other long term (current) drug therapy; Z88.5 Allergy status to narcotic agent; Z87.891 Personal history of nicotine dependence; Z91.02 Food additives allergy status; Z80.9 Family history of malignant neoplasm, unspecified
CPT/HCPCS: 36573; 64413; 80048; 80053; 80202; 85025; 85610; 85652; 85730; 86140; 87040; 87070; 87075; 87077; 87101; 87102; 87116; 87186; 87205; 87206; 87252; 87498; 87529; 87798; 90732

== ENCOUNTER → 2019-01-22 | Outpatient (CLI) | payer BC ==
--- NOTE | 2019-01-23 14:53 | XR ---
Lumbar spine HISTORY: Back pain 3 views of the lumbar spine Lumbar vertebral bodies show preserved height. Bone mineralization is mildly reduced. There is normal alignment. There is multilevel spondylosis. Loss of disc height at intervertebral levels greatest at L3-4, L4-5 and L5-S1. Sclerosis present in the posterior elements. IMPRESSION: Degenerative disc disease and facet arthropathy. Osteopenia.
== END | disposition home or self-care (01) ==
LOC: RADXRMAIN 17:19
PROVIDERS: ATTEND Family Medicine
DX: M51.36 Other intervertebral disc degeneration, lumbar region (principal); M47.816 Spondylosis without myelopathy or radiculopathy, lumbar region; M85.88 Other specified disorders of bone density and structure, other site
CPT/HCPCS: 72100

== ENCOUNTER → 2019-02-23 | Outpatient (CLI) | payer BC ==
--- NOTE | 2019-02-23 21:20 | CT ---
EXAMINATION TYPE: CT sinus wo con DATE OF EXAM: 02/23/2019 COMPARISON: Facial bone CT January 25, 2013. HISTORY: Chronic sinusitis per order, headaches and difficulty breathing per patient. CT DLP: 676 mGycm. Automated Exposure Control for Dose Reduction was Utilized. TECHNIQUE: CT scan of the sinuses is performed without contrast, axial images are obtained, coronal r eformatted images are also reviewed. FINDINGS: The paranasal sinuses including the frontal, ethmoid, sphenoid, and maxillary sinuses bila terally are well-aerated without suspicious opacification or air-fluid levels. Interval surgery at [facility] of ostiomeatal complex bilaterally is noted. Surgically treated ostiomeatal complexes are widely patent bilaterally seen best on coronal image 31. Visualized portion of mastoid air cells show no abnormal opacification. New Poor visualization of ye ateral lenses suggests interval cataract surgery. The visualized brain parenchyma shows mild to mode rate diffuse age-related cerebral atrophy. IMPRESSION: Interval sinus surgery. No persistent or recurrent acute or chronic sinus disease.
== END | disposition home or self-care (01) ==
LOC: RADCTMAIN 17:24
PROVIDERS: ATTEND Otolaryngology
DX: J32.9 Chronic sinusitis, unspecified (principal)
CPT/HCPCS: 70486

== ENCOUNTER → 2019-05-20 | Outpatient (CLI) | payer BC | END | disposition home or self-care (01) | LOC: LABWHC1 12:57 | PROVIDERS: ATTEND Urology | DX: R97.20 Elevated prostate specific antigen [PSA] (principal) | CPT/HCPCS: 36415; 84153 ==

== ENCOUNTER → 2019-11-16 | Outpatient (CLI) | payer BC ==
--- NOTE | 2019-11-16 16:17 | XR ---
EXAMINATION TYPE: XR chest 2V DATE OF EXAM: 11/16/2019 COMPARISON: Prior chest x-ray 07/16/2011 HISTORY: R05, cough and congestion TECHNIQUE: Frontal and lateral views of the chest are obtained. FINDINGS: There is no focal air space opacity, pleural effusion, or pneumothorax seen. The cardiac silhouette size is within normal limits. Biapical pleural thickening is again noted. The osseous str uctures are intact, there is thoracic spondylosis. IMPRESSION: No acute cardiopulmonary process.
== END | disposition home or self-care (01) ==
LOC: RAD 15:05
PROVIDERS: ATTEND Otolaryngology
DX: R05 Cough (principal)
CPT/HCPCS: 71046

== ENCOUNTER → 2019-12-31 | Outpatient (CLI) | payer MEDICARE ==
[2019-12-31 15:15] LABS: African American GFR (CKD) >90 (>60 ml/min/1.73 sqM); Blood Urea Nitrogen 16 mg/dL (9-20); Non-African American GFR(CKD) 89 (>60 ml/min/1.73 sqM)
--- NOTE | 2019-12-31 16:54 | CT ---
EXAMINATION TYPE: CT chest w con DATE OF EXAM: 12/31/2019 COMPARISON: CT 06/10/2018 HISTORY: Chronic cough, aneurysm CT DLP: 345.6 mGycm Automated exposure control for dose reduction was used. CONTRAST: CT scan of the chest is performed with IV Contrast, patient injected with 100 mL of Isovue 300. FINDINGS: LUNGS: The lungs are remarkable for bandlike areas of increased attenuation at the lung bases likely reflecting atelectasis or scar. Apical pleural thickening is stable. There is no pleural effusion or pneumothorax seen. The tracheobronchial tree is patent. MEDIASTINUM: There are no greater than 1 cm hilar or mediastinal lymph nodes. No pericardial effusi on is seen. AORTA: 4 super aortic branch vessels are present. OTHER: Nonobstructive left renal calculus is present measuring 5 mm IMPRESSION: Some basilar atelectasis or scarring is noted.
== END | disposition home or self-care (01) ==
LOC: RADCTMAIN 14:40
PROVIDERS: ATTEND Internal Medicine
DX: R05 Cough (principal); Z88.5 Allergy status to narcotic agent
CPT/HCPCS: 82565; 84520; 71260; 36415; Q9967

== ENCOUNTER → 2020-01-12 | Day surgery (SDC) | payer MEDICARE ==
[2020-01-10 15:47] VITALS: BMI 23.7
[~2020-01-12] MED LIST changes: -DEXAMETHASONE SOD PHOSPHATE 10 MG/ML 1 ML VIAL IV ONE; -HEPARIN SODIUM,PORCINE 5,000 UNIT/ML 1 ML VIAL SQ ONE; +LIDOCAINE 1% (10MG/ML) FOR IV START INTRADERMA PRN; +LIDOCAINE 1% INJ 10MG/ML (20 ML MDV) ONE; -MIDAZOLAM (PF) 2 MG/2 ML VIAL IV PRN; -ONDANSETRON 4 MG/2 ML VIAL IVP ONE; +PROPOFOL 10 MG/ML 20 ML VIAL IV ONE; -SCOPOLAMINE 1.5MG/72HR PATCH TRANSDERM ONE; -ceFAZolin IN SWFI 2 GM/20 ML SYRINGE IVP ONE; -fentaNYL (PF) 50 MCG/ML 2 ML AMP IV PRN
[2020-01-12 09:37] VITALS: TEMP 97.9
--- NOTE | 2020-01-12 10:41 | P.PCN ---
Date of Procedure: 01/12/20 Procedure(s) Performed: BRIEF HISTORY: Patient is a 64-year-old, pleasant, white male scheduled for an upper endoscopy as part of evaluation of intermittent dysphagia to solids, GERD symptoms and throat congestion the last 3 months duration. He was recently started on omeprazole 20 mg twice daily and symptoms are gradually improving. PROCEDURE PERFORMED: Esophagogastroduodenoscopy with biopsy. PREOPERATIVE DIAGNOSIS: GERD/intermittent dysphagia to solids and throat irritation. IV sedation per anesthesia. PROCEDURE: After informed consent was obtained, the patient was brought into the endoscopy unit. IV sedation was administered by Anesthesia under continuous monitoring. Initially the Olympus GIF-140 video endoscope was inserted into the mouth. Esophagus intubated without any difficulty. It was gradually advanced into the stomach and duodenum and carefully examined. The bulb and mild duo denitis and the second part of the duodenum appeared normal. The scope at this time was withdrawn to the stomach, adequately insufflated with air, and upon careful examination, mucosa of the antrum, mild gastritis and biopsies were done from this area. The body, cardia and the fundus appeared normal. The scope was then withdrawn into the esophagus. The GE junction was located at 46 cm from the incisors. Small sliding type hiatal hernia noted. The esophagus appeared normal. There were no erosions or ulcerations seen, biopsies were done from the distal esophagus and the patient tolerated the procedure well. IMPRESSION: 1. Mild antral gastritis and duodenitis. 2. Small hiatal hernia but no endoscopic evidence of esophagitis or esophageal stricture. RECOMMENDATIONS: The findings of this examination were discussed with the patient as well as his family. He was advised to follow with the biopsy results. He will continue with omeprazole 20 mg twice daily and follow antireflux measures..
[2020-01-12 10:45] VITALS: BP 113/71; PULSE 61; RESP 14
== END ==
LOC: ORWHC2ENDO 09:15
PROVIDERS: ATTEND Internal Medicine Gastroenterology
DX: K29.80 Duodenitis without bleeding (principal); K29.50 Unspecified chronic gastritis without bleeding; R13.10 Dysphagia, unspecified; K44.9 Diaphragmatic hernia without obstruction or gangrene; K21.9 Gastro-esophageal reflux disease without esophagitis; Z91.02 Food additives allergy status; I10 Essential (primary) hypertension; E78.5 Hyperlipidemia, unspecified; R00.2 Palpitations; Z79.82 Long term (current) use of aspirin; Z79.899 Other long term (current) drug therapy; Z88.5 Allergy status to narcotic agent
CPT/HCPCS: 88305; 43239; J2001; J2704

== ENCOUNTER → 2020-06-08 | Outpatient (CLI) | payer MEDICARE | END | disposition home or self-care (01) | LOC: LABWHC1 12:04 | PROVIDERS: ATTEND Urology | DX: R97.20 Elevated prostate specific antigen [PSA] (principal) | CPT/HCPCS: 36415; 84153 ==

== ENCOUNTER → 2020-07-18 | Outpatient (CLI) | payer MEDICARE ==
[2020-07-18 09:42] LABS: African American GFR (CKD) >90 (>60 ml/min/1.73 sqM); Blood Urea Nitrogen 21 mg/dL (9-20); Non-African American GFR(CKD) 88 (>60 ml/min/1.73 sqM)
--- NOTE | 2020-07-18 13:32 | CT ---
EXAMINATION TYPE: CT abdomen wo/w con DATE OF EXAM: 07/18/2020 COMPARISON: CT chest 12/31/2019 HISTORY: Lt renal mass CT DLP: 806.7 mGycm Automated exposure control for dose reduction was used. TECHNIQUE: Helical acquisition of images was performed from the lung bases through the top of iliac crest to include entire abdomen. CONTRAST: Performed with Oral Contrast and without and with IV Contrast, patient injected with 100 mL of Isovue 300. FINDINGS: LUNG BASES: No significant abnormality is appreciated. LIVER/GB: There is a small cystic focus in the region of the caudate lobe measuring 2 cm. PANCREAS: No significant abnormality is seen. SPLEEN: No significant abnormality is seen. ADRENALS: No significant abnormality is seen. KIDNEYS: There are parapelvic cysts bilaterally. Small cortical cyst present at the lower pole the ri ght kidney is subcentimeter in size, punctate calcification is present at the lower pole which is non obstructive. There is a hyperdense cyst suspected along anterior margin of the lower pole the left ki dney measuring approximately 1 cm, incompletely visualized on prior, dense on precontrast images. Non obstructive calculus is present at the midpole laterally within the left kidney measuring approximate ly 1 cm, smaller calcification also present near the midpole measures only 3 mm and is also nonobstru ctive. Along the posterior margin of the left kidney there is a small cortical cyst measuring 12 mm, axial image #[address], lesion is stable. BOWEL: No significant abnormality is seen. LYMPH NODES: No significant abnormality is appreciated. 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 FREE AIR: No Free Air visible ASCITES: None visible. RETROPERITONEAL ADENOPATHY: No Retroperitoneal Adenopathy visible. OTHER: IMPRESSION: FINDINGS WITHIN THE LEFT KIDNEY MAY REPRESENT A PROTEINACEOUS CYST, THERE IS BILATERAL NONOBSTRUCTIVE NEPHROLITHIASIS, BILATERAL PARAPELVIC CYSTS, FOLLOW-UP COULD BE PERFORMED TO ASSESS FOR STABILITY.
== END | disposition home or self-care (01) ==
LOC: RADCTMAIN 08:52
PROVIDERS: ATTEND Urology
DX: N20.0 Calculus of kidney (principal); N28.1 Cyst of kidney, acquired
CPT/HCPCS: 82565; 84520; 74170; 36415; Q9967

== ENCOUNTER → 2020-08-03 | Outpatient (CLI) | payer MEDICARE ==
[2020-08-03 11:00] LABS: Basophils # (A) 0.1 k/uL (0-0.2); Basophils % (A) 1 %; Eosinophils # (A) 0.3 k/uL (0-0.7); Eosinophils % (A) 6 %; HCT 44.4 % (39.0-53.0); HGB 15.2 gm/dL (13.0-17.5); Lymphocytes # (A) 1.4 k/uL (1.0-4.8); Lymphocytes % (A) 29 %; MCH 30.5 pg (25.0-35.0); MCHC 34.2 g/dL (31.0-37.0); Mean Platelet Volume 9.1; Monocytes # (A) 0.4 k/uL (0-1.0); Monocytes % (A) 8 %; Neutrophils # (A) 2.5 k/uL (1.3-7.7); Neutrophils % (A) 54 %; Platelet Count 189 k/uL (150-450); RBC 4.99 m/uL (4.30-5.90); RDW 12.5 % (11.5-15.5); WBC 4.7 k/uL (3.8-10.6)
[2020-08-03 11:31] LABS: African American GFR (CKD) >90 (>60 ml/min/1.73 sqM); Anion Gap 6 mmol/L; Blood Urea Nitrogen 17 mg/dL (9-20); Calcium 9.7 mg/dL (8.4-10.2); Carbon Dioxide 27 mmol/L (22-30); Chloride 109 mmol/L (98-107); Glucose 78 mg/dL (74-99); Non-African American GFR(CKD) 85 (>60 ml/min/1.73 sqM); Potassium 4.3 mmol/L (3.5-5.1); Sodium 142 mmol/L (137-145)
== END | disposition home or self-care (01) ==
LOC: LABPAT 10:22
PROVIDERS: ATTEND Urology
DX: Z01.812 Encounter for preprocedural laboratory examination (principal); N40.1 Benign prostatic hyperplasia with lower urinary tract symptoms
CPT/HCPCS: 36415; 80048; 85025

== ENCOUNTER 2020-08-10 08:48 | Day surgery (SDC) | payer MEDICARE ==
[2020-08-09 09:45] VITALS: BMI 23.7
--- NOTE | 2020-08-09 18:03 | P.GSHP ---
History of Present Illness H&P Date: 08/08/20 Chief Complaint: Weak urinary stream The patient is a 65-year-old white male with BPH. His primary symptoms are dysuria, weak urinary stream, hesitancy, straining, and urinary frequency. Urinary flow studies show a peak flow of 4.6 mL/s. Cystoscopy shows the prostate to be visually occluded with a trilobar configuration. Alternative BPH treatment options were reviewed in detail with the patient, and he has elected to undergo a transurethral resection of prostate (TURP). - Cardiovascular Cardiovascular: Reports high blood pressure - Genitourinary (Male) Genitourinary: Reports nocturia, Reports urinary frequency Past Medical History Past Medical History: Hyperlipidemia, Hypertension, Osteoarthritis (OA) Additional Past Medical History / Comment(s): RIGHT INGUINAL HERNIA, HX IBS, migraines, hx elevated PSA, History of Any Multi-Drug Resistant Organisms: None Reported Past Surgical History: Heart Catheterization, Hernia Repair, Tonsillectomy Additional Past Surgical History / Comment(s): sinus surgery, surgical repair rt idex finger, cartilage removed from throat Past Anesthesia/Blood Transfusion Reactions: Motion Sickness Additional Past Anesthesia/Blood Transfusion Reaction / Comment(s): After discharge ops with hernia surgery June 2018 pt's HR went very low after 1 hour of arriving at home, did cpr, pt was brought back and admitted to hospital for 3 days. Additional Past Alcohol Use History / Comment(s): QUIT SMOKING AT AGE 25 STARTED AT AGE 13. 1 PPD. Patient denies any marijuana or illicit drug use. No alcohol use. She did have a problem with alcoholism and his family and marriage counsellor warned him that he would develop cardiomyopathy. Patient's stopped alcohol use April 07 of this year. Patient was at home with his . There are 2 cats one bird, fish and turtle at home. Patient denies any service. Patient works building machinery. - Past Family History Mother Family Medical History: Cancer Additional Family Medical History / Comment(s): skin Medications and Allergies Home Medications Medication Instructions Recorded Confirmed Type Aspirin 81 mg PO DAILY 04/14/14 08/09/20 History Multivitamins, Thera [Multivitamin 1 tab PO DAILY 12/06/16 08/09/20 History (formulary)] Atorvastatin [Lipitor] 10 mg PO HS 06/05/18 08/09/20 History Losartan Potassium 25 mg PO HS 06/05/18 08/09/20 History carvediloL [Coreg] 3.125 mg PO BID 06/05/18 08/09/20 History Krill/Emerson-3/Dha/Epa/Lipids 1 each PO DAILY 01/10/20 08/09/20 History [Krill Oil 350 mg Softgel] Zolpidem Tartrate [Ambien] 5 mg PO HS PRN 08/09/20 08/09/20 History Allergies Allergy/AdvReac Type Severity Reaction Status Date / Time codeine Allergy Rash/Hives, Verified 08/09/20 08:15 ITCHING monosodium glutamate [MSG] Allergy Rapid Verified 08/09/20 08:15 Heart Rate red (food color) Allergy RAPID Verified 08/09/20 08:15 HEART RATE,HIVES Surgical - Exam - General well developed, well nourished, no distress - Respiratory normal respiratory effort - Abdomen Abdomen: soft, non tender, no guarding, no rigid, no rebound - Genitourinary normal penis with no external lesions, testicles non-tender - Rectum Rectum: normal sphincter tone, no masses, other (Prostate moderately enlarged, smooth) - Psychiatric oriented to time, oriented to person, oriented to place, speech is normal, memory intact Assessment and Plan (1) Benign prostatic hyperplasia with lower urinary tract symptoms Status: Acute Code(s): N40.1 - BENIGN PROSTATIC HYPERPLASIA WITH LOWER URINARY TRACT SYMP SNOMED Code(s): 995544214 Plan: Cystoscopy, bipolar TURP. The procedure has been reviewed in detail with the patient. He is aware of potential risks, which include anesthesia, bleeding, infection, retrograde ejaculation, incontinence, erectile dysfunction, and vesical neck contracture. He may require admission post-operatively, likely for one night.
[~2020-08-10 08:48] MED LIST changes: +DEXAMETHASONE SOD PHOSPHATE 4 MG/ML 1 ML VIAL IV ONE; -LACTATED RINGERS 1,000 ML IV SCH; -LIDOCAINE 1% INJ 10MG/ML (20 ML MDV) ONE; +ONDANSETRON 4 MG/2 ML VIAL IVP ONE; -PROPOFOL 10 MG/ML 20 ML VIAL IV ONE
[2020-08-10 09:06] VITALS: TEMP 97.1
[2020-08-10] MEDS: LACTATED RINGERS 1,000 ML IV SCH ×2 (09:18→10:27)
[2020-08-10] MEDS ORDERED: MIDAZOLAM 2 MG/2 ML VIAL ONE (10:25)
[2020-08-10] MEDS ORDERED: PROPOFOL 10 MG/ML 20 ML VIAL IV ONE (10:25)
[2020-08-10] MEDS ORDERED: fentaNYL (PF) 50 MCG/ML 2 ML AMP ONE (10:25)
[2020-08-10] MEDS ORDERED: NEOSTIGMINE 1 MG/ML 10 ML VIAL ONE (10:25)
[2020-08-10] MEDS ORDERED: LIDOCAINE 1% INJ 10MG/ML (20 ML MDV) ONE (10:25)
[2020-08-10] MEDS ORDERED: GLYCOPYRROLATE 0.2 MG/ML 2 ML VIAL ONE (10:25)
[2020-08-10] MEDS ORDERED: SUCCINYLCHOLINE CHLORIDE 100 MG/5 ML SYR IV ONE (10:25)
[2020-08-10] MEDS ORDERED: PHENYLEPHRINE-0.9% NACL SYG 1,000 MCG/10 ML SYRINGE ONE (10:25)
[2020-08-10] MEDS ORDERED: FUROSEMIDE 10 MG/ML 2 ML VIAL ONE (10:25)
[2020-08-10] MEDS ORDERED: ROCURONIUM 10 MG/ML (5 ML VIAL) IV ONE (10:25)
[2020-08-10] MEDS ORDERED: LACTATED RINGERS 1,000 ML IV ONE (12:35)
--- NOTE | 2020-08-10 12:36 | P.OP ---
Date of Procedure: 08/10/20 Preoperative Diagnosis: BPH with obstruction Postoperative Diagnosis: Same Procedure(s) Performed: Cystoscopy, bipolar transurethral resection of prostate (TURP) Anesthesia: OPAL Surgeon: Jamil Wilder Estimated Blood Loss (ml): 50 IV fluids (ml): 900 Pathology: other (Prostate chips) Condition: stable Disposition: PACU Indications for Procedure: The patient is a 65-year-old white male with BPH. His primary symptoms are dysuria, weak urinary stream, hesitancy, straining, and urinary frequency. Urinary flow studies show a peak flow of 4.6 mL/s. Cystoscopy shows the prostate to be visually occluded with a trilobar configuration. Alternative BPH treatment options were reviewed in detail with the patient, and he has elected to undergo a transurethral resection of prostate (TURP). Operative Findings: Trilobar BPH Description of Procedure: The patient was taken in the operating room and placed in the dorsolithotomy position. The external genitalia was prepped and draped sterilely. The Princess Anne urethrotome was used to incise the urethra dorsally. The 25-Tajik ACMI resectoscope sheath was introduced into the bladder under direct vision. The bladder was inspected. Both ureteral orifices were of normal anatomic location and configuration, and clear urine effluxed from both. No tumors or foreign bodies were seen. Examination of the prostate revealed complete obstruction with a trilobar configuration. Using the bipolar cutting loop, the median lobe was resected up to the vera montanum. Next, the lateral lobes were resected down to the surgical capsule. The resection of the floor of the prostate was then completed. Next, the remaining anterior tissue was resected. The residual apical tissue was then carefully resected, with care taken to avoid injury to the external urinary sphincter. The resection was carried down to the surgical capsule in all 4 quadrants. The prostatic fossa was then carefully examined, and any areas of bleeding were controlled with electrocautery. Excellent hemostasis was attained. The resectoscope was withdrawn into the bulbous urethra. The external urinary sphincter remained intact. The prostatic fossa was open. The Olacabs evacuator was used to remove all prostate chips from the bladder. These were saved and sent for pathologic examination. The resectoscope was removed, and a 20 Tajik Layton catheter was placed. The return was essentially clear. The patient tolerated the procedure well was taken to the recovery room in stable condition.
[2020-08-10 12:47] VITALS: RESP 16
[2020-08-10 13:24] VITALS: BP 130/79; PULSE 54
== END 2020-08-10 14:34 | disposition home or self-care (01) ==
LOC: OR 08:48
PROVIDERS: ATTEND Urology
DX: N40.1 Benign prostatic hyperplasia with lower urinary tract symptoms (principal); N13.8 Other obstructive and reflux uropathy; R39.12 Poor urinary stream; R30.0 Dysuria; I10 Essential (primary) hypertension; E78.5 Hyperlipidemia, unspecified; R97.20 Elevated prostate specific antigen [PSA]; K58.9 Irritable bowel syndrome, unspecified; Z20.822 Contact with and (suspected) exposure to COVID-19; Z79.82 Long term (current) use of aspirin; Z79.899 Other long term (current) drug therapy; Z87.891 Personal history of nicotine dependence; Z80.8 Family history of malignant neoplasm of other organs or systems; Z88.5 Allergy status to narcotic agent; Z91.018 Allergy to other foods
CPT/HCPCS: 88305; 87635; 52601; J2250; J1100; J1940; J2710; J0690; J2405; J2001; J3010; J2370; J0330; J2704

== ENCOUNTER → 2021-01-25 | Outpatient (CLI) | payer MEDICARE ==
[2021-01-25 13:05] LABS: HCT 46.5 % (39.0-53.0); HGB 15.1 gm/dL (13.0-17.5); MCH 29.7 pg (25.0-35.0); MCHC 32.4 g/dL (31.0-37.0); MCV 91.8 fL (80.0-100.0); Mean Platelet Volume 9.9; Platelet Count 187 k/uL (150-450); RBC 5.07 m/uL (4.30-5.90); RDW 12.1 % (11.5-15.5); WBC 5.7 k/uL (3.8-10.6)
[2021-01-25 13:18] LABS: African American GFR (CKD) >90 (>60 ml/min/1.73 sqM); Anion Gap 8 mmol/L; Blood Urea Nitrogen 21 mg/dL (9-20); Carbon Dioxide 30 mmol/L (22-30); Chloride 104 mmol/L (98-107); Non-African American GFR(CKD) 86 (>60 ml/min/1.73 sqM); Potassium 4.6 mmol/L (3.5-5.1); Sodium 142 mmol/L (137-145)
== END | disposition home or self-care (01) ==
LOC: LABPAT 12:22
PROVIDERS: ATTEND Internal Medicine Interventional Cardiology
DX: Z01.812 Encounter for preprocedural laboratory examination (principal); R94.39 Abnormal result of other cardiovascular function study
CPT/HCPCS: 80051; 82565; 84520; 85027

== ENCOUNTER → 2021-06-08 | Outpatient (CLI) | payer MEDICARE ==
[2021-06-08 08:51] LABS: African American GFR (CKD) >90 (>60 ml/min/1.73 sqM); Blood Urea Nitrogen 24 mg/dL (9-20); Non-African American GFR(CKD) 85 (>60 ml/min/1.73 sqM)
--- NOTE | 2021-06-08 10:20 | CT ---
EXAMINATION TYPE: CT abdomen wo/w con DATE OF EXAM: 06/08/2021 COMPARISON: CT dated 07/18/2020 HISTORY: Lt renal mass CT DLP: 1024.6 mGycm Automated exposure control for dose reduction was used. TECHNIQUE: Helical acquisition of images was performed from the lung bases through the top of iliac crest to include entire abdomen. CONTRAST: Performed without Oral Contrast and without and with IV Contrast, patient injected with 100 mL of Iso joey 300. FINDINGS: LUNG BASES: Bilateral basal linear pulmonary atelectasis. Questionable cardiomegaly. LIVER/GB: Tiny right lower lobe inferior cyst with caudate lobe cyst, stable. Otherwise unremarkable liver. The gallbladder is not distended. PANCREAS: No significant abnormality is seen. SPLEEN: No significant abnormality is seen. ADRENALS: No significant abnormality is seen. KIDNEYS: Stable hyperdense exophytic lesion at the anterior aspect of the lower pole of the left kidn ey measuring up to 9 mm. No enhancement in the postcontrast and delayed images suggestive of hemorrha gic/proteinaceous cyst. Stability is reassuring. The remainder of the previously seen bilateral renal cysts are grossly stable without suspicious feature. Few bilateral nonobstructing renal calculi ron uring up to 6 mm at the midpole of the left kidney. No hydroureter or hydronephrosis. Parapelvic reg l cysts without suspicious feature. Unremarkable kidneys otherwise. BOWEL: Unremarkable nondistended stomach, duodenum and visualized small bowel. Colonic diverticulosi s with fecal loading of the colon. LYMPH NODES: No pathologically enlarged lymph nodes. OSSEOUS STRUCTURES: T11 vertebral body hemangioma. No aggressive bone lesion. FREE AIR: No free air is visualized. OTHER: Scattered arterial atherosclerotic calcifications. No abdominal ascites. IMPRESSION: Stable left lower renal pole hyperdense exophytic lesion likely representing a hemorrhagic/proteinace ous cyst without definite enhancement. No other suspicious renal lesion identified. Nonobstructing bi lateral renal calculi. Other incidental findings as described above.
== END | disposition home or self-care (01) ==
LOC: RADCTMAIN 07:54
PROVIDERS: ATTEND Family Medicine
DX: N28.89 Other specified disorders of kidney and ureter (principal); N20.0 Calculus of kidney
CPT/HCPCS: 82565; 84520; 74170; 36415; Q9967

== ENCOUNTER → 2021-12-17 | Outpatient (CLI) | payer MEDICARE ==
[2021-12-17 18:15] LABS: HCT 42.2 % (39.6-50.0); HGB 13.9 g/dL (13.0-17.0); MCH 30.3 pg (27.0-32.0); MCHC 32.9 g/dL (32.0-37.0); MCV 91.9 fL (80.0-97.0); NRBC Per 100 WBC 0 /100 WBCS (0.0-0.0); Platelet Count 171 X 10*3/uL (140-440); RBC 4.59 X 10*6/uL (4.40-5.60); RDW 12.8 % (11.5-14.5)
[2021-12-17 18:52] LABS: Protein, Total 6.3 g/dL (6.2-8.2)
[2021-12-17 18:57] LABS: Erythrocyte Sedimentation Rate 1 mm/Hr (0-20)
[2021-12-17 19:03] LABS: ALT 22 U/L (10-49); AST 17 U/L (14-35); African American GFR (CKD) 95.6 (60.0-200.0); Albumin 4.3 g/dL (3.8-4.9); Albumin/Globulin Ratio 2.29 (1.60-3.17); Alkaline Phosphatase 45 U/L (41-126); BUN/Creat Ratio 15.05 Ratio (12.00-20.00); Blood Urea Nitrogen 14.3 mg/dL (9.0-27.0); C Reactive Protein <0.30 mg/dL (0.00-0.80); Calcium 9.5 mg/dL (8.7-10.3); Chloride 109 mmol/L (96-109); Globulin 1.9 g/dL (1.6-3.3); Glucose 99 mg/dL (70-110); Non-African American GFR(CKD) 82.5 (60.0-200.0); Potassium 4.6 mmol/L (3.5-5.5); Sodium 144 mmol/L (135-145); Total Protein 6.2 g/dL (6.2-8.2)
[2021-12-18 13:05] LABS: Albumin 4.01 g/dL (3.80-4.90); Gamma Globulin 0.78 g/dL (0.70-1.50)
== END | disposition home or self-care (01) ==
LOC: LABWHC1 12:49
PROVIDERS: ATTEND Physician Assistant
DX: Z00.00 Encounter for general adult medical examination without abnormal findings (principal); R97.20 Elevated prostate specific antigen [PSA]
CPT/HCPCS: 36415; 80053; 82306; 82607; 84153; 84165; 84207; 85027; 85652; 86140

== ENCOUNTER → 2023-06-26 | Outpatient (CLI) | payer MEDICARE ==
[2023-06-26 11:56] LABS: African American GFR (CKD) >90 (>60 ml/min/1.73 sqM); Blood Urea Nitrogen 17 mg/dL (9-20); Non-African American GFR(CKD) 85 (>60 ml/min/1.73 sqM)
--- NOTE | 2023-06-27 08:40 | CT ---
EXAMINATION TYPE: CT brain wo/w con DATE OF EXAM: 06/26/2023 COMPARISON: None HISTORY: headache and double vision upon exertion CT DLP: 2339.1 mGycm Automated exposure control for dose reduction was used. CONTRAST: CT scan of the head is performed without and with IV Contrast, patient injected with 100 ml mL of Iso joey 300. FINDINGS: The ventricles, basal cisterns and sulci over convexities are within normal limits and there is no ma ss effect or shift of the midline structures. There is no acute intra or extra-axial hemorrhage. No abnormal density is seen throughout the brain parenchyma. Following contrast administration, there is no pathological enhancement. The posterior fossa including the brainstem, fourth ventricle and cerebellopontine angles appear norm al. The intraorbital contents are normal and symmetric. Visualized paranasal sinuses and mastoid air cells are well aerated. IMPRESSION: No significant abnormality seen.
== END | disposition home or self-care (01) ==
LOC: RADCTMAIN 11:09
PROVIDERS: ATTEND Otolaryngology
DX: Z13.9 Encounter for screening, unspecified (principal); H53.2 Diplopia; R51.9 Headache, unspecified
CPT/HCPCS: 82565; 84520; 70470; Q9967

== ENCOUNTER 2023-10-08 07:21 | Day surgery (SDC) | payer MEDICARE ==
[2023-10-07 12:17] VITALS: BMI 23.7
--- NOTE | 2023-10-08 07:51 | P.GSHP ---
History of Present Illness H&P Date: 10/08/23 CHIEF COMPLAINT: GERD and colon screen HISTORY OF PRESENT ILLNESS: The patient is a 68-year-old male who presents with gastroesophageal reflux disease and need for colon screen. Upper and lower endoscopy were offered for further evaluation and management. PAST MEDICAL HISTORY: Please see list. PAST SURGICAL HISTORY: Please see list. MEDICATIONS: Please see list. ALLERGIES: Please see list. SOCIAL HISTORY: No illicit drug use FAMILY HISTORY: No reports of Crohn disease or ulcerative colitis. REVIEW OF ORGAN SYSTEMS: CONSTITUTIONAL: No reports of fevers or chills. GI: Denies any blood in stools or constipation. PHYSICAL EXAM: VITAL SIGNS: Stable GENERAL: Well-developed pleasant in no acute distress. HEENT: No scleral icterus. Extraocular movements grossly intact. Moist buccal mucosa. NECK: Supple without lymphadenopathy. CHEST: Unlabored respirations. Equal bilateral excursions. CARDIOVASCULAR: Regular rate and rhythm. Distal 2+ pulses. ABDOMEN: Soft, nondistended. MUSCULOSKELETAL: No clubbing, cyanosis, or edema. ASSESSMENT: 1. Gastroesophageal reflux disease 2. Colon screen. PLAN: 1. Recommend proceeding with an upper and lower endoscopy Past Medical History Past Medical History: Hyperlipidemia, Hypertension, Osteoarthritis (OA) Additional Past Medical History / Comment(s): IBS, migraines, hx elevated PSA History of Any Multi-Drug Resistant Organisms: None Reported Past Surgical History: Heart Catheterization, Hernia Repair, Tonsillectomy Additional Past Surgical History / Comment(s): sinus surgery, surgical repair rt index finger, cartilage removed from throat Past Anesthesia/Blood Transfusion Reactions: Motion Sickness Additional Past Anesthesia/Blood Transfusion Reaction / Comment(s): After discharge ops with hernia surgery June 2018 pt's HR went very low after 1 hour of arriving at home, did cpr, pt was brought back and admitted to hospital for 3 days. Past Psychological History: Anxiety Smoking Status: Former smoker Past Alcohol Use History: None Reported Additional Past Alcohol Use History / Comment(s): QUIT SMOKING AT AGE 25 STARTED AT AGE 14-1 PPD Past Drug Use History: None Reported - Past Family History Mother Family Medical History: Cancer Additional Family Medical History / Comment(s): skin Medications and Allergies Home Medications Medication Instructions Recorded Confirmed Type Aspirin 81 mg PO DAILY 04/14/14 10/07/23 History Multivitamins, Thera [Multivitamin 1 tab PO DAILY 12/06/16 10/07/23 History (formulary)] Atorvastatin [Lipitor] 10 mg PO HS 06/05/18 10/07/23 History Losartan Potassium 25 mg PO DAILY 06/05/18 10/07/23 History carvediloL [Coreg] 3.125 mg PO BID 06/05/18 10/07/23 History Krill/[place]-3/Dha/Epa/Lipids 1 each PO DAILY 01/10/20 10/07/23 History [Krill Oil 350 mg Softgel] Zolpidem Tartrate [Ambien] 5 mg PO HS PRN 08/09/20 10/07/23 History Allergies Allergy/AdvReac Type Severity Reaction Status Date / Time codeine Allergy Rash/Hives, Verified 10/07/23 12:11 ITCHING monosodium glutamate [MSG] Allergy Rapid Verified 10/07/23 12:11 Heart Rate red (food color) Allergy RAPID Verified 10/07/23 12:11 HEART RATE,HIVES
[2023-10-08 07:54] VITALS: TEMP 97.2
[2023-10-08] MEDS: IV FLUID CONTINUATION 1,000 ML IV ONE ×2 (07:55→08:15)
[2023-10-08] MEDS: LACTATED RINGERS 1,000 ML IV SCH (08:04)
[2023-10-08] MEDS ORDERED: PROPOFOL 10 MG/ML 20 ML VIAL IV ONE (08:17)
--- NOTE | 2023-10-08 08:32 | P.PCN ---
Date of Procedure: 10/08/23 Description of Procedure: PREOPERATIVE DIAGNOSIS: Gastroesophageal reflux disease. POSTOPERATIVE DIAGNOSIS: Duodenitis, acute on chronic Gastritis OPERATION: Esophagogastroduodenoscopy with biopsies along esophagus, antrum and duodenum SURGEON: Dianna Jeter MD ANESTHESIA: MAC. INDICATIONS: The patient is a 68-year-old male who presents with reflux disease. Benefits and risks of the procedure were described. Informed consent was obtained. DESCRIPTION: The patient was brought into the endoscopy suite and laid in the left lateral decubitus position. An Olympus gastroscope was passed along the posterior oropharynx down to the distal esophagus where the squamocolumnar junction was encountered at 48 cm from the incisors. The stomach was entered and no bile reflux was found. Additional findings are listed below. Biopsies with cold forceps were obtained of the antrum. The first through third portion of the duodenum was examined. Retroflexion of the scope confirmed Hill grade 3 lower esophageal valve. The squamocolumnar junction demonstrated LA grade B erosive esophagitis. The stomach was desufflated. The patient tolerated the procedure well. FINDINGS: Squamocolumnar junction 48 cm from the incisors. Diaphragmatic hiatus at 48 cm. Hill grade 3 lower esophageal valve. LA grade B erosive esophagitis. Acute on chronic duodenitis without active bleeding. Biopsies obtained of the duodenum. Chronic gastritis along antrum with biopsies obtained. RECOMMENDATIONS: Upper endoscopy as needed.
[2023-10-08 09:11] VITALS: BP 126/76; PULSE 62; RESP 16
--- NOTE | 2023-10-08 09:56 | P.PCN ---
Date of Procedure: 10/08/23 Description of Procedure: PREOPERATIVE DIAGNOSIS: Colonoscopy screening POSTOPERATIVE DIAGNOSIS: Tubular adenoma ascending colon, Sigmoid diverticulosis OPERATION: Colonoscopy to the ileocecal valve and appendiceal orifice, cecum Colonoscopy with cold forceps biopsy SURGEON: Dianna Jeter MD. ANESTHESIA: MAC. INDICATIONS: The patient is an 68-year-old male who presents for colonoscopy. Last colonoscopy over 5 years ago. Benefits and risks were described and informed consent was obtained. DESCRIPTION OF PROCEDURE: The patient had undergone Sutab prep. The patient had been brought into the operating room and laid in the left lateral decubitus position. After adequate intravenous sedation, the rectum was examined with 2% lidocaine jelly. The prostate was unremarkable. External hemorrhoids were encountered. The rectal tone was within normal limits. No lesions were palpated in the rectal vault. An Olympus colonoscope was advanced until the cecum, ileocecal valve and appendiceal orifice were clearly viewed. The prep was good. Sigmoid diverticulosis was encountered. Colonic polyps were found and removed. No evidence of focal colitis was found. Retroflexion of the scope demonstrated grade 2 internal hemorrhoids without active bleeding or inflammation. The colon was desufflated. The patient had tolerated the procedure well. Withdrawal time was over 6 minutes. FINDINGS: Aronchick preparation quality scale 2 (1-5) Internal hemorrhoids, grade 2 External hemorrhoids, grade 2. No arteriovenous malformations. Sigmoid diverticulosis, severe with redundancy Removal of 1 polyp: - Cold forceps biopsy at distal ascending colon, 5 mm polyp. No focal colitis. RECOMMENDATIONS: Repeat colonoscopy 3 years, 2026 Plan - Discharge Summary Discharge Rx Participant: No New Discharge Prescriptions: Continue Aspirin 81 mg PO DAILY Multivitamins, Thera [Multivitamin (formulary)] 1 tab PO DAILY carvediloL [Coreg] 3.125 mg PO BID Atorvastatin [Lipitor] 10 mg PO HS Losartan Potassium 25 mg PO DAILY Krill/[place]-3/Dha/Epa/Lipids [Krill Oil 350 mg Softgel] 1 each PO DAILY Zolpidem Tartrate [Ambien] 5 mg PO HS PRN PRN Reason: Insomnia Discharge Medication List Aspirin 81 mg PO DAILY 04/14/14 [History] Multivitamins, Thera [Multivitamin (formulary)] 1 tab PO DAILY 12/06/16 [History] Atorvastatin [Lipitor] 10 mg PO HS 06/05/18 [History] Losartan Potassium 25 mg PO DAILY 06/05/18 [History] carvediloL [Coreg] 3.125 mg PO BID 06/05/18 [History] Krill/[place]-3/Dha/Epa/Lipids [Krill Oil 350 mg Softgel] 1 each PO DAILY 01/10/20 [History] Zolpidem Tartrate [Ambien] 5 mg PO HS PRN 08/09/20 [History] Follow up Appointment(s)/Referral(s): Dianna Jeter MD [STAFF PHYSICIAN] - 11/04/23 11:00 am Patient Instructions/Handouts: Diverticulosis (GEN), Diverticulosis Diet (GEN), Colorectal Polyps (GEN) Activity/Diet/Wound Care/Special Instructions: Repeat colonoscopy 3 years, 2026 Discharge Disposition: HOME SELF-CARE
== END 2023-10-08 10:15 | disposition home or self-care (01) ==
LOC: ORWHC2ENDO 07:21
PROVIDERS: ATTEND Surgery Plastic and Reconstructive Surgery
DX: Z12.11 Encounter for screening for malignant neoplasm of colon (principal); D12.2 Benign neoplasm of ascending colon; K21.00 Gastro-esophageal reflux disease with esophagitis, without bleeding; K29.50 Unspecified chronic gastritis without bleeding; K29.80 Duodenitis without bleeding; K57.30 Diverticulosis of large intestine without perforation or abscess without bleeding; E78.5 Hyperlipidemia, unspecified; I10 Essential (primary) hypertension; M19.90 Unspecified osteoarthritis, unspecified site; G43.909 Migraine, unspecified, not intractable, without status migrainosus; K58.9 Irritable bowel syndrome, unspecified; F41.9 Anxiety disorder, unspecified; F10.90 Alcohol use, unspecified, uncomplicated; Z79.82 Long term (current) use of aspirin; Z79.899 Other long term (current) drug therapy; Z87.891 Personal history of nicotine dependence; Z90.89 Acquired absence of other organs; Z98.890 Other specified postprocedural states; Z88.5 Allergy status to narcotic agent; Z88.8 Allergy status to other drugs, medicaments and biological substances
CPT/HCPCS: 88305; 45380; 43239; J2704

== ENCOUNTER → 2023-11-04 | Outpatient (CLI) | payer MEDICARE ==
[2023-11-04 18:15] LABS: Basophils # (A) 0.06 X 10*3/uL (0.00-0.10); Basophils % (A) 1.1 %; Eosinophils # (A) 0.34 X 10*3/uL (0.04-0.35); Eosinophils % (A) 6.1 %; HCT 45.5 % (39.6-50.0); HGB 14.7 g/dL (13.0-17.0); Lymphocytes % (A) 32.1 %; MCH 30.3 pg (27.0-32.0); MCHC 32.3 g/dL (32.0-37.0); MCV 93.8 FL (80.0-97.0); Mean Platelet Volume 12.5 FL (9.5-12.2); Monocytes # (A) 0.51 X 10*3/uL (0.20-1.00); Monocytes % (A) 9.1 %; NRBC Per 100 WBC 0 X 10*3/uL (0.00-0.01); Neutrophils # (A) 2.88 X 10*3/uL (1.80-7.70); Neutrophils % (A) 51.4 %; Platelet Count 185 X 10*3/uL (140-440); RBC 4.85 X 10*6/uL (4.40-5.60); RDW 12.5 % (11.5-14.5)
[2023-11-04 18:23] LABS: BUN/Creat Ratio 19.67 Ratio (12.00-20.00); Blood Urea Nitrogen 17.7 mg/dL (9.0-27.0); Calcium 9.6 mg/dL (8.7-10.3); Carbon Dioxide 25.8 mmol/L (21.6-31.8); Chloride 108 mmol/L (96-109); Glucose 98 mg/dL (70-110); Sodium 142 mmol/L (135-145)
== END | disposition home or self-care (01) ==
LOC: LABWHC1 13:49
PROVIDERS: ATTEND Urology
DX: N43.41 Spermatocele of epididymis, single (principal)
CPT/HCPCS: 36415; 80048; 85025

== ENCOUNTER → 2024-01-09 | Outpatient (CLI) | payer MEDICARE ==
--- NOTE | 2024-01-09 10:48 | XR ---
EXAMINATION TYPE: XR KUB DATE OF EXAM: 01/09/2024 9:58 AM CLINICAL INDICATION: Male, 68 years old with history of N20.0 CALCULUS OF KIDNEY; [facility] COMPARISON: 01/09/2024. TECHNIQUE: One radiographic view of the abdomen was obtained. FINDINGS: The bowel gas pattern is nonspecific without dilated loops of small or large bowel. . Fecal material and gas are demonstrated throughout the colon and rectum. There is no evidence for organomegaly or pneumoperitoneum. The osseous structures are intact. Left renal calculi measuring up to 6 mm. IMPRESSION: 1. Left renal calculus measuring up to 6 mm. 2. Nonspecific bowel gas pattern without radiographic evidence for acute process. [facility], , 01/09/2024 10:46 AM
== END | disposition home or self-care (01) ==
LOC: RADXRMAIN 09:45
PROVIDERS: ATTEND Urology
DX: N20.0 Calculus of kidney
CPT/HCPCS: 74018

== ENCOUNTER → 2024-01-15 | Outpatient (CLI) | payer MEDICARE ==
[2024-01-15 20:34] LABS: Alternaria alternata IgE <0.10 kU/L; Aspergillus fumagatus IgE <0.10 kU/L; Birch IgE <0.10 kU/L; Cat Epith & Dander IgE <0.10 kU/L; Cladosporian herbarum IgE <0.10 kU/L; Cockroach IgE <0.10 kU/L; Dermato. farinae IgE <0.10 kU/L; Dog Dander IgE <0.10 kU/L; Elm IgE <0.10 kU/L; Maple (Box Elder) IgE 0.22 kU/L; Oak IgE <0.10 kU/L; Ragweed,Common IgE <0.10 kU/L; Red Top (Bentgrass) IgE <0.10 kU/L
== END | disposition home or self-care (01) ==
LOC: LABWHC1 11:24
PROVIDERS: ATTEND Otolaryngology
CPT/HCPCS: 36415; 82785; 86003

== ENCOUNTER → 2024-06-02 | Outpatient (CLI) | payer MEDICARE ==
[2024-06-02 11:46] LABS: African American GFR (CKD) >90 (>60 ml/min/1.73 sqM); Blood Urea Nitrogen 20 mg/dL (9-20); Non-African American GFR(CKD) 87 (>60 ml/min/1.73 sqM)
--- NOTE | 2024-06-02 14:20 | CT ---
EXAMINATION TYPE: CT angio neck DATE OF EXAM: 06/02/2024 COMPARISON: None CLINICAL INDICATION: Male, 69 years old with history of G45.9 TIA; PHH, dizzy TECHNIQUE: CTA scan of the neck is performed with IV Contrast, patient injected with 65 ml mL of Iso joey 370, axial images are obtained, coronal and sagittal reformatted images are reviewed. 3D reconstr ucted images are created on an independent workstation and reviewed. 3-D postprocessing was performed . CT DLP: 353.[address] CTDI: mGy Automated exposure control for dose reduction was used. NASCET criteria was used in interpretation of this exam? FINDINGS: The brachiocephalic origins are widely patent and no significant stenosis. There is no significant stenosis of the common or internal carotid arteries within the neck. There is a mild eccentric calcified plaque in the distal right common carotid artery just proximal to the bif urcation but no significant stenosis. There is no stenosis of the vertebral arteries. IMPRESSION:. Minimal calcified plaque formation in the region of the right carotid bifurcation as keely cribed above.. There is no significant stenosis within the carotid arteries within the neck. NASCET criteria was used in interpretation of this exam? [facility], , 06/02/2024 2:18 PM
== END | disposition home or self-care (01) ==
LOC: RADCTMAIN 11:11
PROVIDERS: ATTEND Internal Medicine Interventional Cardiology
DX: I65.21 Occlusion and stenosis of right carotid artery (principal)
CPT/HCPCS: 82565; 84520; 70498; 36415; Q9967

== ENCOUNTER → 2024-11-02 | Outpatient (CLI) | payer MEDICARE ==
--- NOTE | 2024-11-02 12:17 | XR ---
EXAMINATION TYPE: XR KUB DATE OF EXAM: 11/02/2024 COMPARISON: KUB radiograph 01/09/2024, CT abdomen 06/08/2021 HISTORY: N20.0 TECHNIQUE: Single supine KUB image of the abdomen is obtained FINDINGS: Small bowel demonstrates no evidence for dilatation or air fluid levels. Gas and fecal material is seen in non-distended colon. No convincing evidence for pneumoperitoneum. Unchanged 7 mm calculus within the left kidney. No definitive right renal calculus. No definitive ur eteral calculus. The lung bases are clear. The osseous structures are intact. IMPRESSION: 1. Unchanged 7 mm calculus within the left kidney. 2. Overall nonobstructive bowel gas pattern. [facility], , 11/02/2024 12:14 PM
== END | disposition home or self-care (01) ==
LOC: RADXRMAIN 11:50
PROVIDERS: ATTEND Urology
DX: N20.0 Calculus of kidney (principal)
CPT/HCPCS: 74018